=== PATIENT | male | born 1960 | race Caucasian/White ===

== ENCOUNTER → 2017-08-08 12:53 | Outpatient (CLI) | payer MEDICARE, SELFPAY ==
--- NOTE | 2017-08-08 14:00 | ECHOCS_ITS ---
Reason For Study: CHF Procedure This was a 2D Doppler, Color Flow transthoracic echocardiogram. The exam was of poor technical quality due to respiratory status and body habitus.. Exam performed in department. Left Ventricle Normal LV size. Mild concentric left ventricular hypertrophy. Left ventricular systolic function is normal. The estimated ejection fraction is 55 %. No regional wall motion abnormalities noted. Right Ventricle Normal RV size. Normal systolic function. Atria Normal left atrium. Normal right atrium. Mitral Valve Normal mitral valve. Tricuspid Valve Normal tricuspid valve. Unable to estimate RV systolic pressure/pulmonary artery pressure due to technically difficult study. Prob. moderate pulmonary HTN est 50mmhg. Aortic Valve Trisinus/trileaflet aortic valve. Pulmonic Valve The pulmonic valve is not well visualized. Great Vessels Normal aortic root. The pulmonary artery is normal size. Normal inferior vena cava. Pericardium/Pleural No pericardial effusion. Medication 22 gauge I.V. with prn adaptor inserted into left arm. Diluted definity 5ml given slow IV push to enhance endocardial definition. MMode/2D Measurements & Calculations LVIDd: 4.4 cm IVSd: 1.3 cm Ao root diam: 3.5 cm LVIDs: 3.5 cm LVPWd: 1.3 cm LA dimension: 4.2 cm FS: 20.3 % LAV(MOD-bp): 102.0 ml LVAd ap4: 32.2 cm2 EDV(MOD-sp2): 142.4 ml LAV(MOD-bp) Indexed: 43.8 ml/m2 EDV(MOD-sp4): 109.0 ml EF(MOD-sp2): 51.7 % LAV(MOD-sp2): 94.6 ml EDV(sp4-el): 101.4 ml LAV(MOD-sp4): 105.1 ml LVAs ap4: 17.5 cm2 ESV(MOD-sp4): 37.0 ml ESV(sp4-el): 35.4 ml EF(MOD-sp4): 66.1 % EF(sp4-el): 65.2 % SV(MOD-sp4): 72.0 ml SV(MOD-sp2): 73.6 ml SV(sp4-el): 66.1 ml RA A4 area: 21.1 cm2 Doppler Measurements & Calculations MV E max irina: 153.3 cm/sec Ao V2 max: 162.2 cm/sec LV V1 max: 97.4 cm/sec MV A max irina: 166.9 cm/sec Ao max P.5 mmHg LV V1 max P.8 mmHg MV E/A: 0.92 PA V2 max: 64.8 cm/sec Interpretation Summary Normal LV size. Mild concentric left ventricular hypertrophy. Left ventricular systolic function is normal. The estimated ejection fraction is 55 %. Unable to estimate RV systolic pressure/pulmonary artery pressure due to technically difficult study. Prob. moderate pulmonary HTN est 50mmhg Ordering Physician: Yoni Marques Referring Physician: DUNCAN JOSEPH Performed By: Dottie Kirby RDCS, RVT
--- NOTE | 2017-08-09 05:19 | PFTCOMP ---
COMPLETE PULMONARY FUNCTION TEST INTERPRETATION Brief HPI: Patient is a 56 year old male, currently under the care of myself, who presents to [facility] for complete pulmonary function tests secondary to diagnosis of chronic respiratory failure. Respiratory therapist reports good effort and reproducible results. Interpretation: Forced expiration spirometry shows no large airways obstructive ventilatory defect with an FEV1 of 48 % predicted. There is no significant bronchodilator response by ATS criteria. Spirograms are of good quality and plateau normally. The respiratory flow volume loop shows a normal pattern. Lung volumes by body plethysmography show a decreased total lung capacity at 3.77 L, 58 % predicted. All other lung volumes are reduced symmetrically. Diffusion capacity by carbon monoxide is decreased at 28 % predicted. The airway resistance is normal. No previous pulmonary function tests were available for review. Impression: Severe restrictive ventilatory defect with a symmetric reduction diffusing capacity consistent with possible interstitial lung disease. No previous pulmonary function tests are available for review.
--- NOTE | 2017-08-09 05:23 | PFTCOMP_ITS ---
COMPLETE PULMONARY FUNCTION TEST INTERPRETATION Brief HPI: Patient is a 56 year old male, currently under the care of myself, who presents to [facility] for complete pulmonary function tests secondary to diagnosis of chronic respiratory failure. Respiratory therapist reports good effort and reproducible results. Interpretation: Forced expiration spirometry shows no large airways obstructive ventilatory defect with an FEV1 of 48 % predicted. There is no significant bronchodilator response by ATS criteria. Spirograms are of good quality and plateau normally. The respiratory flow volume loop shows a normal pattern. Lung volumes by body plethysmography show a decreased total lung capacity at 3.77 L, 58 % predicted. All other lung volumes are reduced symmetrically. Diffusion capacity by carbon monoxide is decreased at 28 % predicted. The airway resistance is normal. No previous pulmonary function tests were available for review. Impression: Severe restrictive ventilatory defect with a symmetric reduction diffusing capacity consistent with possible interstitial lung disease. No previous pulmonary function tests are available for review.
== END ==
PROVIDERS: Family Provider Family Medicine; PCP Family Medicine; Visit Provider Internal Medicine Critical Care Medicine
DX: I50.9 Heart failure, unspecified (principal); I51.7 Cardiomegaly; J96.10 Chronic respiratory failure, unspecified whether with hypoxia or hypercapnia
CPT/HCPCS: 93306; 94060; 94726; 94729; Q9957; A4216; C8929

== ENCOUNTER → 2017-08-09 12:40 | Outpatient (CLI) | payer MEDICARE, SELFPAY ==
[2017-08-09 13:47] VITALS: PULSE 102; PULSE 104; PULSE 108; PULSE 111; O2SAT 80; O2SAT 88; O2SAT 92
--- NOTE | 2017-08-09 13:47 | CPS ---
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 patient placed on room air. Patients room air sp02 was 80% with a hr of 111 bpm at rest. Patient informed rt that he wears 3 lpm at home cont.. Patient placed back on 3 lpm while at rest. patient ambulated in hallway on 3 lpm at 1 minute otis with a sp02 of 88% and a hr of 108 bpm. Patient increased to 4 lpm due to sp02 level and increased work of breathing. At 1 minute 30 seconds patient requested to quit due to sob. patient was 92% on 4 lp. Post return from testing patient was 92% on 4 lpm with a hr of 102 bpm.
--- NOTE | 2017-08-09 14:38 | CPS ---
Patient arrived for testing on 4 lpm nc. Patient placed on room air. Patients room air sp02 was 80% with a hr of 111 bpm at rest. Patient informed Rt that he wears 3 llpm at home cont.. Patient placed back on 3 lpm while at rest. Patient ambulated in hallway on 3 lpm through 1 minute otis with a sp02 of 88% and a hr of 108 bpm. Patient increased to 4 lpm due to sp02 level and increased work of breathing. At 1 minute 30 seconds patient requested to quit due to sob. Patient was 92% on 4 lpm with ambulation. Post return from testing patient was 92% on 4 lpm with a hr of 102 bpm.
--- NOTE | 2017-08-10 07:07 | WT_ITS ---
PSN 6 Minute Walk Test - 6 Minute Walk Test 6 Minute Walk Test: 6 Minute Walk Test PSN:6-Minute Walk Test Start: 08/09/17 13: 46 Freq: Status: Active Protocol: RESP.6MINW Document 08/09/17 13:47 DWP (Rec: 08/09/17 13:57 DWP [id number]) 6 Minute Walk Test Date Performed 08/09/17 Time Performed 12:50 Height 5 ft 8 in Weight: 186.88 kg Weight in Pounds 412.[address]: dr. mckeon FIO2 (% Oxygen) 0.36 Assistive device used: None Pre-test Oxygen Delivery Method Room Air Pulse Ox (%) 80 Pulse Rate (60-100 beats/min) 111 H Dyspnea Anthony Scale (0-10) 6 Exertion Anthony Scale (6-20) 15 1st minute Oxygen Flow Rate (L/min) 3 Oxygen Delivery Method Nasal Cannula Pulse Ox (%) 88 Pulse Rate (60-100 beats/min) 108 H Reported Symptoms Increased Work of Breathing 2nd minute Oxygen Flow Rate (L/min) 4 Oxygen Delivery Method Nasal Cannula Pulse Ox (%) 92 Pulse Rate (60-100 beats/min) 104 H Number of Rests Taken 1 Reported Symptoms Increased Work of Breathing Post-test Oxygen Flow Rate (L/min) 4 Oxygen Delivery Method Nasal Cannula Pulse Ox (%) 92 Pulse Rate (60-100 beats/min) 102 H Dyspnea Anthony Scale (0-10) 9 Exertion Anthony Scale (6-20) 18 Full Laps Walked 1 Partial Lap, Number of Tiles Walked 0 Total Distance Walked (ft) 59 08/09/17 14:38 Cardiopulmonary Services by Jesus Mcdermott Patient arrived for testing on 4 lpm nc. Patient placed on room air. Patients room air sp02 was 80% with a hr of 111 bpm at rest. Patient informed Rt that he wears 3 llpm at home cont.. Patient placed back on 3 lpm while at rest. Patient ambulated in hallway on 3 lpm through 1 minute otis with a sp02 of 88% and a hr of 108 bpm. Patient increased to 4 lpm due to sp02 level and increased work of breathing. At 1 minute 30 seconds patient requested to quit due to sob. Patient was 92% on 4 lpm with ambulation. Post return from testing patient was 92% on 4 lpm with a hr of 102 bpm. Initialized on 08/09/17 14:38 - END OF NOTE - Interpretation Interpretation: The patient arrived on 4 L nasal cannula. The patient was placed to room air and desaturated to 80%. The patient was then placed on 3 L nasal cannula with improvement in saturations to 92%. The patient only ambulated 59 feet prior to discontinuing study prematurely. Saturations were controlled on 4 L/min and total exercise time of approximately 1 minute and 30 seconds was noted. These findings are consistent with severe respiratory limitation to exercise tolerance. - Recommendations Recommendations: The patient requires 3 L nasal cannula at rest and 4 L minimum with exertion.
== END ==
PROVIDERS: Family Provider Family Medicine; PCP Family Medicine; Visit Provider Internal Medicine Critical Care Medicine
DX: R06.02 Shortness of breath (principal)
CPT/HCPCS: 94618

== ENCOUNTER 2017-09-01 15:02 | Inpatient (IN) | payer MEDICARE, SELFPAY ==
[2017-09-01] VITALS (11 sets, daily range): BP systolic 113–168; BP diastolic 52–81; PULSE 87–109; RESP 15–24; TEMP 36.6–36.7; O2SAT 92–96; BMI 49.4; BMI 48.5
--- NOTE | 2017-09-01 15:35 | EKG12_ITS ---
Test Reason : CHF Blood Pressure : / mmHG Vent. Rate : 085 BPM Atrial Rate : 102 BPM P-R Int : 164 ms QRS Dur : 108 ms QT Int : 360 ms P-R-T Axes : 036 084 021 degrees QTc Int : 428 ms Normal sinus rhythm with Premature ventricular complexes Low voltage QRS Nonspecific ST and T wave abnormality Abnormal ECG Confirmed by RENA MADERA ([id number]), assignment editor SHAY ADAME ([id number]) on 09/05/2017 2:28:21 PM Referred By: JOSE Confirmed By:RENA MADERA
--- NOTE | 2017-09-01 15:40 | ED.DCSUM_ITS ---
- ER Visit Summary Date of Service: 09/01/17 Chief Complaint: Shortness of breath History of Present Illness: The patient is a 56 M with history of COPD, CHF, diabetes presents for 2 months of gradually worsening shortness of breath. Over the last 2 weeks it is gotten even more progressively worse to the point patient is having difficulty with his activities of daily living, such as getting to the toilet. [facility]. He has some associated chest pain. He denies fever, cough, abdominal pain, nausea or vomiting, diarrhea. 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 Patient is on Coumadin for A. fib. he is on 3-1/2 L nasal cannula at his [facility] facility 24 hours a day. Physical Examination: Vital signs: afebrile, hemodynamically stable, 92% on 2 L nasal cannula General: well nourished, well developed, obese, appears ill Skin: warm, dry, no pallor HEENT: normocephalic and atraumatic; PERRL, EOMI, dry mucous membranes Cardiovascular: Tachycardic rate and rhythm without murmur appreciated, tense edema to the left lower extremity up to the thigh with associated erythema, 2+ pulses all distal extremities exception of right PT needed leg Respiratory: Mild increased work of breathing, tachypnea, lungs are clear to auscultation bilaterally, but limited secondary to body habitus Abdominal: Abdomen is soft, mild edema to the terminal skin, nontender with normoactive bowel sounds, no guarding or rebound, no masses MSK: Generalized weakness, moves all extremities Neuro: Awake and alert, oriented ?4. No neuro deficits Test Results: Abnormal Lab Results 09/01/17 09/01/17 09/01/17 15:15 15:15 15:15 WBC 13.2 H RBC 4.19 L Hgb 10.1 L Hct 33.1 L MCV 79.0 L MCH 24.1 L MCHC 30.5 L RDW 16.4 H RDW Differential 47.3 H Plt Count 347 MPV 9.8 Immature Gran % (Auto) 0.500 Neut % (Auto) 78.4 H Lymph % (Auto) 10.3 L Arthur % (Auto) 9.5 Eos % (Auto) 1.1 Baso % (Auto) 0.2 Absolute Neuts (auto) 10.4 H Absolute Lymphs (auto) 1.36 Total Counted Not Reportable PT 28.2 H INR 2.8 APTT 64.8 H Sodium 132 L Potassium 3.9 Chloride 97 L Carbon Dioxide 24.0 Anion Gap 11 BUN 71 H Creatinine 2.45 H Estim Creat Clear Calc 31.80 Est GFR (MDRD) Af Amer 35 L Est GFR (MDRD) Non-Af 29 L BUN/Creatinine Ratio 29.0 H Glucose 64 L Lactic Acid Calcium 8.8 Troponin I 0.03 B-Natriuretic Peptide POC Glucose 09/01/17 09/01/17 09/01/17 16:17 16:17 17:39 WBC RBC Hgb Hct MCV MCH MCHC RDW RDW Differential Plt Count MPV Immature Gran % (Auto) Neut % (Auto) Lymph % (Auto) Arthur % (Auto) Eos % (Auto) Baso % (Auto) Absolute Neuts (auto) Absolute Lymphs (auto) Total Counted PT INR APTT Sodium Potassium Chloride Carbon Dioxide Anion Gap BUN Creatinine Estim Creat Clear Calc Est GFR (MDRD) Af Amer Est GFR (MDRD) Non-Af BUN/Creatinine Ratio Glucose Lactic Acid 1.1 Calcium Troponin I B-Natriuretic Peptide 365.7 H POC Glucose 72 Emergency Department Course and Treatment: Patient presents for shortness of breath with the differential including CHF exacerbation, COPD, pneumonia, or other infectious or cardiac etiology. Patient does have the edema of the left lower extremity which is either due to CHF or concerning for cellulitis. Patient is afebrile but is tachycardic and tachypneic, again either CHF infectious in nature. EKG showed this rhythm without ischemia or ectopy, rate 85 at the time it was taken. Chest x-ray was consistent with CHF and showed no pneumonia. Patient had an elevated BNP. CBC remarkable for leukocytosis of 13.2. Creatinine elevated at 2.45, with patient's last baseline 2 years ago and mildly elevated. Unsure if patient's creatinine today is due to progression of chronic kidney disease or is an acute insufficiency. INR therapeutic at 2.8. Thus unlikely patient's lower extremity swelling is from a DVT. Troponin was within normal limits. Lactate was 1.1. Because of the cellulitic changes in the left lower extremity, patient was started on IV antibiotics, clindamycin, for cellulitis coverage. He is not septic. Most likely his shortness of breath is due to acute CHF exacerbation that is gradually worsened over the last several weeks. He was given nitro followed by Lasix. He initially received gentle hydration, but this was discontinued once his main issue was suspected to be acute CHF exacerbation. Patient maintained good oxygen saturation on his home oxygen settings. Patient was discussed with Dr. Aubrie dowd for further management. Treatment Plan: [] Disposition: [] Impression: Acute CHF exacerbation, left lower extremity cellulitis, acute renal insufficiency, acute on chronic dyspnea This note was generated with [employer] dictation software. It may contain incorrect words, spelling, and punctuation that were not noted in review of the chart prior to signing ED Disposition - Plan for ED Patient: Chief Complaint: Shortness of Breath
--- NOTE | 2017-09-01 15:40 | RAD_ITS ---
STUDY: X-RAY CHEST REASON FOR EXAM: Male, 56 years old. CHF. Shortness of breath. TECHNIQUE: Portable frontal COMPARISON: February 14, 2016 FINDINGS: There are EKG leads projecting over the thorax. There is perihilar fullness associated with prominent interstitial markings. Cardiomegaly is present. Normal visualized aortic arch and descending thoracic aorta. There are diffuse degenerative changes of the visualized thoracic spine. Normal visualized ribs, clavicles, and shoulders. There is no demonstrated abnormality of the visualized soft tissue structures of the upper abdomen. RAD/Chest 1 View (Portable) IMPRESSION: Congestive heart failure. Electronically Signed: Leticia Soto MD at 16:04 EST Tel , Service support ,
[2017-09-01] MEDS: 0.9% Normal Saline 1,000 ML 150 ML IV (16:18)
[2017-09-01] MEDS: Furosemide 40 MG/4 ML Vial IV (16:32)
[2017-09-01 16:48] LABS: Absolute Lymphocyte Count 1.36 X10^3/ul (0.83-4.51); Absolute Neutrophil Count 10.4 X10^3/uL (2.0-7.7); Basophil# 0.02 X10^3/uL; Basophil% 0.2 % (0-1); Eosinophil# 0.14 X10^3/uL; Eosinophils% 1.1 % (0-5); Hematocrit 33.1 % (40-54); Hemoglobin 10.1 g/dl (13.0-16.5); Lymphocyte # 1.36 X10^3/ul (4.0); Lymphocyte % 10.3 % (19-41); Mean Corp Hgb Conc 30.5 g/gl (32-36); Mean Corpuscular Hgb 24.1 pg (27.0-32.0); Mean Platelet Vol. 9.8 fl (6.2-12.0); Monocyte# 1.25 X10^3/uL; Monocyte% 9.5 % (0-10); Neutrophil # 10.36 X10^3/uL (2.7-7.7); Neutrophil % 78.4 % (47-70); Platelet Count 347 K/mm3 (150-450); RBC Distribution Width CV 16.4 % (11.6-14.6); RBC Distribution Width SD 47.3 fl (35.1-43.9); Red Blood Count 4.19 M/mm3 (4.6-6.2); White Blood Count 13.2 K/mm3 (4.4-11.0)
[2017-09-01 16:53] LABS: POSITIVE COUNT NO; POSITIVE DIFFERENTIAL NO; POSITIVE MORPHOLOGY NO
[2017-09-01 17:01] LABS: International Normalized Ratio 2.8; Prothrombin Time (Protime)PT. 28.2 SECONDS (11.7-14.9)
[2017-09-01 17:02] LABS: Partial Thromboplast Time 64.8 Seconds (24.1-36.2)
[2017-09-01 17:05] LABS: Anion Gap 11 (5-15); BUN 71 mg/dL (7-18); Calcium,Total 8.8 mg/dL (8.5-10.1); Chloride 97 mmol/L (98-107); Creatinine, Serum 2.45 mg/dL (0.70-1.30); EST Glomerular Filtration Rate 29 mL/min (>60); Est Glom Filt Rate - Afr Amer 35 mL/min (>60); Glucose 64 mg/dL (74-106); Potassium 3.9 mmol/L (3.5-5.1); Sodium Level 132 mmol/L (136-145)
[2017-09-01 17:09] LABS: BNP,B-Type NATRIURETIC PEPTIDE 365.7 pg/mL (0-100)
[2017-09-01 17:14] LABS: Lactic Acid 1.1 mmol/L (0.4-2.0)
--- NOTE | 2017-09-01 17:50 | PCM.HP.STD ---
Problem List (1) Acute on chronic diastolic (congestive) heart failure Status: Acute (2) Diabetes mellitus, type 2 Status: Chronic Qualifiers: Diabetes mellitus complication status: with unspecified complications (3) Hypertension Status: Chronic Qualifiers: Hypertension type: essential hypertension Qualified Code(s): I10 - Essential (primary) hypertension (4) Hyperlipidemia Status: Chronic Qualifiers: Hyperlipidemia type: unspecified Qualified Code(s): E78.5 - Hyperlipidemia, unspecified (5) Chronic obstructive lung disease Status: Chronic Qualifiers: Emphysema type: unspecified (6) Chronic diastolic CHF (congestive heart failure) Status: Chronic Comment: ischemic cardiomyopathy (7) CAD (coronary artery disease) Status: Chronic Qualifiers: Coronary Disease-Associated Artery/Lesion type: [place] artery [place] vs. transplanted heart: [place] heart Associated angina: angina presence unspecified Qualified Code(s): I25.10 - Atherosclerotic heart disease of [place] coronary artery without angina pectoris Comment: Status post the first OM the LCx appears to be occluded First OM with proximal 50-75% appearing stenosis followed by minimal luminal irregularities - recommended medical management (8) Nicotine dependence Status: Chronic Qualifiers: Substance use status: unspecified nicotine-induced disorder History of Present Illness Date of Admission: 09/01/17 Chief Complaint: Shortness of breath ongoing for 2 months The patient is a 56 year old male with past medical history of chronic diastolic CHF, COPD, morbid obesity, type 2 DM, on insulin, hypertension comes in with complaints of shortness of breath ongoing for the past 2 months associated with orthopnea, PND and left leg swelling. Denied any fever or chills but said he has seen his primary care doctor within the last 2 weeks and was asked to continue management for CHF. He follows up with pain management, Dr. Russell in the outpatient. At time of being seen, he denied any chest discomfort, any dizziness, or palpitations. In the ED showed temperature of 90 8.1F, heart rate of 105, blood pressure was 133/52, respiratory rate was 24, SPO2 is 92-95% on 2L. Admitting blood work showed RBC count of 13.2, Hb of 10.1, platelets of 347, INR was 2.8, sodium 132, chloride 97 BUN 71 creatinine 2.45(apparent baseline creatinine is around 1.3). Chest X-ray shows vascular congestion. BNPep was 365.7. Past Medical History Past Medical History (Chronic Problems): Chronic Problems (Last Reviewed 07/17/17 @ 06:30 by Татьяна Carrera) Diabetes mellitus, type 2 (Chronic) Hypertension (Chronic) Hyperlipidemia (Chronic) Chronic obstructive lung disease (Chronic) Chronic diastolic CHF (congestive heart failure) (Chronic) ischemic cardiomyopathy Obstructive sleep apnea (Chronic) Back pain (Chronic) CAD (coronary artery disease) (Chronic) Status post the first OM the LCx appears to be occluded First OM with proximal 50-75% appearing stenosis followed by minimal luminal irregularities - recommended medical management Depression (Chronic) Nicotine dependence (Chronic) Microcytic anemia (Chronic) Chronic respiratory failure with hypoxia (Chronic) Morbid obesity with BMI of 40.0-44.9, adult (Chronic) PAF (paroxysmal atrial fibrillation) (Chronic) Allergies ciprofloxacin [From Cipro] Allergy (Verified 09/01/17 15:48) itching/burning when given IV ciprofloxacin HCl [From Cipro] Allergy (Verified 09/01/17 15:48) Unknown ibuprofen [From Motrin] Allergy (Verified 09/01/17 15:48) elevated white count? tramadol Allergy (Verified 09/01/17 15:48) makes me shake/twitch venom-honey bee [bee venom (honey bee)] Allergy (Verified 09/01/17 15:48) Shortness of breath Home Medications: Ambulatory Orders Medication Instructions Recorded Cholecalciferol (VIT D3) [Vitamin 2,000 unit PO DAILY 12/23/15 D3] Duloxetine HCl 120 mg PO DAILY 12/23/15 Magnesium Oxide [Mag-Ox 400] 400 mg PO DAILY 12/23/15 Melatonin 3 mg PO QHS 12/23/15 Metoprolol Tartrate [Lopressor 25 mg PO BID 12/23/15 (beta carlos eduardo)] Multivitamins,Therapeutic 1 tab PO DAILY 12/23/15 [Multivitamin] Potassium Chloride [K-Liliana] 15 ml PO BID 12/23/15 Sennosides [Evac-U-Gen] 2 tab PO BID 12/23/15 Thiamine HCl [B-1] 100 mg PO DAILY 12/23/15 Warfarin [Coumadin] 5 mg PO QHS 12/23/15 Metformin HCl [Glucophage] 500 mg PO BIDCM #0 tab 12/27/15 Torsemide [Demadex] 20 mg PO DAILY #30 tab 12/27/15 Nitroglycerin [Nitrostat] 0.4 mg SUBLINGUAL Q5M PRN #30 tab 01/18/16 Acetaminophen [Tylenol Tablet] 650 mg PO Q6H PRN PRN #10 tab 02/16/16 Acetaminophen 650 mg RC Q6H PRN PRN 09/01/17 Atorvastatin Calcium 20 mg PO QHS 09/01/17 Bisacodyl [Laxative Suppository] 10 mg RC PRN PRN 09/01/17 BusPIRone [Buspar] 5 mg PO TID 09/01/17 Dextrose [Glucose Gel] 38 gm PO PRN PRN 09/01/17 Furosemide [Lasix] 20 mg PO DAILY 09/01/17 Glucagon,Human Recombinant 1 mg IJ PRN PRN 09/01/17 [Glucagon Emergency Kit] Guaifenesin [Robitussin] 10 ml PO Q4H PRN PRN 09/01/17 Hydrocodone Bitart/Apap 5-325 1 tablet PO BID PRN PRN 09/01/17 [[place] 5MG-325MG] Hydroxyzine HCl 25 mg PO Q6H PRN PRN 09/01/17 Insulin Detemir [Levemir FlexPen] 55 units SC BID 09/01/17 Insulin Lispro [Humalog] 10 unit SC TIDCM 09/01/17 Ipratropium/Albuterol Sulfate 3 ml INHALATION DAILY 09/01/17 [Duoneb] Ipratropium/Albuterol Sulfate 3 ml INHALATION Q4H PRN PRN 09/01/17 [Duoneb] Mag Hydrox/Al Hydrox/Simeth 30 ml PO Q4H PRN PRN 09/01/17 [Antacid Suspension] Magnesium Hydroxide [Milk Of 30 ml PO DAILY PRN PRN 09/01/17 Magnesia] Mirtazapine [Remeron] 15 mg PO QHS 09/01/17 MorphINE [MS Contin] 30 mg PO Q8H 09/01/17 Na Phos,M-B/Na Phos,Di-Ba [Fleet 1 bottle RECTAL DAILY PRN PRN 09/01/17 Enema] Omeprazole [Prilosec] 20 mg PO DAILY 09/01/17 Pregabalin [Lyrica] 50 mg PO BID 09/01/17 Tamsulosin HCl [Flomax] 0.4 mg PO QHS 09/01/17 Warfarin [Coumadin ([facility])] 2 mg PO SUTUTHSA 09/01/17 Surgical History: - - Right 2nd toe amputation, cardiac catheterization, right ankle surgery, right foot surgery secondary to fracture, tracheostomy, status below right knee amputation. Psychiatric History: Depression Smoking Status: Former smoker - *Family History Maternal History Items: Hypertension Paternal History Items: Diabetes, Hypertension Sibling History Items: No pertinent history Review of Systems Constitutional: Reports: Anorexia, Weakness. Denies: Chills, Fever, Malaise, Weight Change Eyes: Denies: Blurred vision, Cataracts, Conjunctivae Inflammation, Pain, Redness HEENT: Denies: Difficulty Hearing, Difficulty Swallowing, Head Aches, Hearing Changes, Sinus Congestion, Sinus Drainage Cardiovascular: Reports: Edema, Orthopnea, Paroxysmal Noc. Dyspnea. Denies: Chest Pain, Claudication, Chest Pressure, Palpitations Respiratory: Denies: Cough, Shortness of breath at rest, Sputum production Gastrointestinal: Denies: Abdominal Pain, Nausea, Vomiting Genitourinary: Denies: Dysuria, Frequency, Incontinence Musculoskeletal: Denies: Joint Pain, Joint stiffness, Joint swelling, Joint Tenderness Skin: Denies: Rash, Wounds Neurological: Denies: Difficulty swallowing, Focal weakness, Numbness, Tingling Psychiatric: Denies: Anxiety, Depression, Homicidal Ideations, Suicidal Ideations Hematologic/ Lymphatic: Denies: Easy Bruising, Easy Bleeding VTE Information - Inpt Only VTE Present on Admission: No VTE Pharm Prophylaxis ordered?: Yes - Physical Exam General: Alert, Oriented x3, Cooperative HEENT: Atraumatic, PERRLA, EOMI, Normocephalic Oral: Moist Mucosa Neck: Supple Lungs: Clear to auscultation, Normal air movement Cardiovascular: Regular rate, Regular Rhythm, Normal S1, Normal S2, No murmurs Abdomen: Bowel Sounds Present, Non Tender, Non-Distended, No Hepato-splenomegaly, Obese, - - Firm to touch from anterior wall edema Extremities: Edema - left leg is edematous, woody to touch, right AKA Skin: - - erythema and cellulitic changes of skin up to the medial aspect of the left leg. Musculoskeletal: No Tenderness to Palpation of Joints or Extremities Lymphatic: No Cervical, Supraclavicular, or Inguinal Adenopathy Neurological: Cranial nerves II-XII grossly intact, Neuro grossly intact Psych/Mental Status: Normal Affect, Appropriate Vital Signs Temp Pulse Resp BP Pulse Ox 98.1 F 107 H 15 168/76 H 93 09/01/17 15:03 09/01/17 17:47 09/01/17 17:47 09/01/17 17:47 09/01/17 17:47 Oxygen Flow Rate 2 Oxygen Delivery Method Nasal Cannula Weight: 147.5 kg Body Mass Index (BMI) 49.4 Finger Stick Blood Glucose 72 Laboratory Tests Past 24 Hrs 09/01/17 09/01/17 09/01/17 15:15 15:15 15:15 WBC 13.2 H RBC 4.19 L Hgb 10.1 L Hct 33.1 L MCV 79.0 L MCH 24.1 L MCHC 30.5 L RDW 16.4 H RDW Differential 47.3 H Plt Count 347 MPV 9.8 Immature Gran % (Auto) 0.500 Neut % (Auto) 78.4 H Lymph % (Auto) 10.3 L [place] % (Auto) 9.5 Eos % (Auto) 1.1 Baso % (Auto) 0.2 Absolute Neuts (auto) 10.4 H Absolute Lymphs (auto) 1.36 Total Counted Not Reportable PT 28.2 H INR 2.8 APTT 64.8 H Sodium 132 L Potassium 3.9 Chloride 97 L Carbon Dioxide 24.0 Anion Gap 11 BUN 71 H Creatinine 2.45 H Estim Creat Clear Calc 31.80 Est GFR (MDRD) Af Amer 35 L Est GFR (MDRD) Non-Af 29 L BUN/Creatinine Ratio 29.0 H Glucose 64 L Lactic Acid Calcium 8.8 Troponin I 0.03 B-Natriuretic Peptide 09/01/17 09/01/17 16:17 16:17 WBC RBC Hgb Hct MCV MCH MCHC RDW RDW Differential Plt Count MPV Immature Gran % (Auto) Neut % (Auto) Lymph % (Auto) Harnett % (Auto) Eos % (Auto) Baso % (Auto) Absolute Neuts (auto) Absolute Lymphs (auto) Total Counted PT INR APTT Sodium Potassium Chloride Carbon Dioxide Anion Gap BUN Creatinine Estim Creat Clear Calc Est GFR (MDRD) Af Amer Est GFR (MDRD) Non-Af BUN/Creatinine Ratio Glucose Lactic Acid 1.1 Calcium Troponin I B-Natriuretic Peptide 365.7 H Assessment/Plan 56 year old male with past medical history of chronic diastolic CHF, COPD, morbid obesity, type 2 DM, on insulin, hypertension comes in with complaints of shortness of breath ongoing for the past 2 months associated with orthopnea, PND and left leg swelling. 1. Acute CHF exacerbation, chronic diastolic heart failure, on lasix 20 mg p.o. at home, chest x-ray shows vascular congestion, patient is clinically overloaded, BNPep is 357 which has to be interpreted in the light of morbid obesity. Appears to be clinically in heart failure Plan: Admit to PCU, continue to monitor on telemetry, IV Lasix 40 mg daily, strict I's and O's, daily weights, BMP in the morning 2. Sepsis secondary to Acute left leg cellulitis, (tachycardia, leucocytosis, source of infection which is the cellulitis), lactic acid is 1.1, will start patient on IV cefazolin, to to monitor patient closely, elevation of leg in bed, labs in am 3. JAILENE on CKD stage 3, likely secondary to cardiorenal syndrome, on lasix, will put nephrology on consult, urine urea, urine creatinine, ultrasound of the kidney 4. Type 2 DM, on insulin, will continue home regimen with Accu-Cheks, low dose ISS, will check HgbA1c, last Hgba1c was 10.1 5. Hyperlipidemia, on statin 6. Paroxysmal atrial fibrillation, on coumadin, INR is therapeutic, continue on coumadin, daily INR 7. Chronic COPD, acute exacerbation, will continue on breathing treatments as needed 8. DVT Prophylaxis - patient is on Coumadin and INR is therapeutic Code Visit Inpatient E&M: 03114 Init Hosp L3
[2017-09-01 17:51] LABS: Bedside Glucose 72 mg/dL (70-110)
--- NOTE | 2017-09-01 19:17 | US_ITS ---
STUDY: RENAL ULTRASOUND - COMPLETE REASON FOR EXAM: Male, 56 years old. ARF TECHNIQUE: Ultrasound evaluation of the kidneys was performed with real-time and static wells-scale imaging. The examination was limited secondary to the patient's body habitus. COMPARISON: None. FINDINGS: RIGHT KIDNEY: The right kidney is poorly visualized. No gross hydronephrosis is seen LEFT KIDNEY: Normal location of the left kidney, which is normal in size. The left kidney measures 11.3 x 5.3 x 5.8 cm. There is a normal cortex of the left kidney. The renal cortex measures cm. There is no left renal mass or cyst. There are no left renal calculi. There is no left hydronephrosis. BLADDER: The distended urinary bladder has a volume of 380 ml. There is a Bright catheter within the urinary bladder. There is a normal wall thickness of the distended urinary bladder. There is no demonstrated mass within the urinary bladder. There are no demonstrated bladder calculi. US/Kidney and Bladder IMPRESSION: Extremely limited examination secondary to body habitus demonstrating no gross hydronephrosis. Electronically Signed: Leticia Soto MD at 14:01 EST Tel , Service support ,
[2017-09-01] MEDS: Pregabalin 50 MG Capsule PO (22:24)
[2017-09-01] MEDS: MELATONIN 3 MG TABLET PO (22:24)
[2017-09-01] MEDS: Mirtazapine 15 MG Tablet PO (22:25)
[2017-09-01] MEDS: Atorvastatin Calcium 20 MG Tablet PO (22:25)
[2017-09-01] MEDS: Tamsulosin HCl 0.4 MG Capsule PO (22:25)
[2017-09-01] MEDS: Senna Tablet 1 TABLET PO (22:25)
[2017-09-01] MEDS: Metoprolol Tartrate 25 MG Tablet PO (22:29)
[2017-09-01 22:51] LABS: Bedside Glucose 91 mg/dL (70-110)
[2017-09-01 22:54] LABS: Urine Sodium 34 mmol/L (Not Establ.)
[2017-09-01] MEDS: Ipratropium/Albuterol Sulfate 3 ML AMPUL.NEB INHALATION (23:00)
[2017-09-02] VITALS (15 sets, daily range): BP systolic 127–151; BP diastolic 52–75; PULSE 94–119; RESP 14–20; TEMP 36.4–36.9; O2SAT 90–95
[2017-09-02 04:36] LABS: Hematocrit 30.1 % (40-54); Hemoglobin 9.4 g/dl (13.0-16.5); Mean Corp Hgb Conc 31.2 g/gl (32-36); Mean Corpuscular Hgb 24.6 pg (27.0-32.0); Mean Corpuscular Volume 78.8 fL (80-94); Mean Platelet Vol. 9.7 fl (6.2-12.0); Platelet Count 360 K/mm3 (150-450); RBC Distribution Width CV 16.4 % (11.6-14.6); RBC Distribution Width SD 45.8 fl (35.1-43.9); Red Blood Count 3.82 M/mm3 (4.6-6.2); White Blood Count 11.6 K/mm3 (4.4-11.0)
[2017-09-02 04:36] LABS: Bedside Glucose 106 mg/dL (70-110)
[2017-09-02 04:48] LABS: Scan Indicated on CBC? Y/N NO
[2017-09-02 04:53] LABS: Anion Gap 11 (5-15); BUN 71 mg/dL (7-18); Calcium,Total 8.6 mg/dL (8.5-10.1); Chloride 94 mmol/L (98-107); Creatinine, Serum 2.15 mg/dL (0.70-1.30); EST Glomerular Filtration Rate 34 mL/min (>60); Est Glom Filt Rate - Afr Amer 41 mL/min (>60); Estimated Creatinine Clearance 36.23 ml/min; Glucose 92 mg/dL (74-106); Potassium 3.3 mmol/L (3.5-5.1); Sodium Level 133 mmol/L (136-145)
[2017-09-02 05:05] LABS: International Normalized Ratio 2.5; Prothrombin Time (Protime)PT. 25.7 SECONDS (11.7-14.9)
[2017-09-02 06:51] LABS: Bedside Glucose 110 mg/dL (70-110)
[2017-09-02] MEDS: Ipratropium/Albuterol Sulfate 3 ML AMPUL.NEB INHALATION ×3 (07:07→18:55)
[2017-09-02] MEDS: Multivitamins,Therapeutic Tablet 1 TABLET PO (07:49)
[2017-09-02] MEDS: Thiamine Hydrochloride 100 MG Tablet PO (07:49)
--- NOTE | 2017-09-02 09:20 | CASEMGMT ---
Patient is from [facility]. SW faxed updates to [facility]. RUSSEL also called Kimberly and she said patient can return even if pre-cert is not yet obtained as he is a custodial resident. SW to follow for return to [facility]. Melanie العلي MSW
[2017-09-02] MEDS: Senna Tablet 1 TABLET PO ×2 (10:00→21:53)
[2017-09-02] MEDS: Metoprolol Tartrate 25 MG Tablet PO ×2 (10:00→21:51)
[2017-09-02] MEDS: DULoxetine Hcl 60 MG Capsule 120 MG PO (10:00)
[2017-09-02] MEDS: Furosemide 40 MG/4 ML Vial IV ×2 (10:01→21:50)
[2017-09-02] MEDS: Pantoprazole Sodium 20 MG Tablet PO (10:01)
[2017-09-02] MEDS: Pregabalin 50 MG Capsule PO ×2 (10:01→21:56)
[2017-09-02] MEDS: 0.9% NaCl Peripheral Flush Adult/Peds IV ×3 (10:02→22:04)
--- NOTE | 2017-09-02 10:36 | PCM.CONS.R ---
Consultation - Renal 09/02/17 PCP/ Referring MD: Requesting physician: Suzette Hernandez Primary care physician: Sharan Rae Reason for Consultation:: JAILENE - History of Present Illness History of Present Illness: The patient is a 56 year old male resident of [facility] with past medical history of chronic diastolic CHF, COPD, morbid obesity, MATTHEW on CPAP, type 2 DM for 22 years s/p Rt BKA, on insulin, hypertension comes in with complaints of shortness of breath ongoing for the past 2 months associated with orthopnea, PND and left leg swelling. He presented with acute kidney injury with a creatinine of 2.45 improved to 2.15 after Bright catheter insertion. Baseline creatinine appears to be at 1.05 in February 2016. He complained of urinary hesitancy, dribbling, weak urine stream. He history of BPH, by the [place] clinic. He has been seen by a boom tender he believes at the [place]. He had a prolonged hospitalization for 10 months back in March 2015 to December 2015 for respiratory arrest requiring tracheostomy at [facility] with subsequent admission to [facility]. He is morbidly obese and sedentary at [facility] due to debilitation, chronic pain syndrome from back pain. He is followed by Dr. Russell. He denied any chest pain. His appetite has been good without nausea or vomiting. He has a history of weight gain. He complains of constipation with increased abdominal distention and discomfort. He does not know what his sugar control has been. He is on insulin for diabetes. He was started on iv antibiotics for leg cellulitis. He has tremors in his upper extremities that is chronic. Chest X-ray shows vascular congestion. BNP was 365.7. Kidney US is ordered. - Allergies Allergies: Allergies ciprofloxacin [From Cipro] Allergy (Verified 09/01/17 15:48) itching/burning when given IV ciprofloxacin HCl [From Cipro] Allergy (Verified 09/01/17 15:48) Unknown ibuprofen [From Motrin] Allergy (Verified 09/01/17 15:48) elevated white count? tramadol Allergy (Verified 09/01/17 15:48) makes me shake/twitch venom-honey bee [bee venom (honey bee)] Allergy (Verified 09/01/17 15:48) Shortness of breath - Current Medications Current Medications: Current Medications Hydrocodone Bitart/Acetaminophen ([place] 5mg-325mg) 1 tablet PO BID PRN PRN PRN Reason: BREAKTHROUGH PAIN (>4/10) Al Hydroxide/Mg Hydroxide (Mylanta Ii) 30 ml PO Q4H PRN PRN PRN Reason: gi distress Albuterol/Ipratropium (Duoneb) 3 ml INHALATION Q4H PRN PRN PRN Reason: SOB &/OR WHEEZING Albuterol/Ipratropium (Duoneb) 3 ml INHALATION Q4HWA.RT [facility] Last Admin: 09/02/17 07:07 Dose: 3 ml Atorvastatin Calcium (Lipitor) 20 mg PO QHS [facility] Last Admin: 09/01/17 22:25 Dose: 20 mg Bisacodyl (Dulcolax) 10 mg RECTAL PRN PRN PRN Reason: Constipation Buspirone HCl (Buspar) 5 mg PO TID [facility] Last Admin: 09/02/17 05:43 Dose: 5 mg Cholecalciferol (Vitamin D) 2,000 unit PO DAILY [facility] Last Admin: 09/02/17 10:00 Dose: 2,000 unit Dextrose (D50w Syringe) 0 gm IV X1 PRN; Protocol PRN Reason: Hypoglycemia Duloxetine HCl (Cymbalta) 120 mg PO DAILY [facility] Last Admin: 09/02/17 10:00 Dose: 120 mg Furosemide (Lasix) 40 mg IV DAILY [facility] Last Admin: 09/02/17 10:01 Dose: 40 mg Glucagon () 1 mg IM .X1 PRN PRN Reason: Hypoglycemia Guaifenesin (Robitussin) 10 ml PO Q4H PRN PRN PRN Reason: COUGH Heparin Sodium (Porcine) (Heparin Na) 5,000 unit SC BID [facility] Last Admin: 09/02/17 10:01 Dose: 5,000 units Hydroxyzine Pamoate (Vistaril) 25 mg PO Q6H PRN PRN PRN Reason: ANXIETY Cefazolin Sodium 0.5 gm/ (Sodium Chloride) 50 mls @ 100 mls/hr IV Q12 [facility] Last Admin: 09/02/17 10:01 Dose: 100 mls/hr Sodium Chloride () 250 mls @ 15 mls/hr IV .[id number] PRN PRN Reason: SALINE FLUSH Insulin Aspart (Novolog Flexpen (Bkc)) 0 units SC ACHS [facility] PRN Reason: Protocol Last Admin: 09/02/17 07:38 Dose: Not Given Insulin Aspart (Novolog Flexpen (Bkc)) 10 units SC TIDCM [facility] Last Admin: 09/02/17 07:49 Dose: 10 u Magnesium Hydroxide (Milk Of Magnesia) 30 ml PO DAILY PRN PRN Reason: Constipation Melatonin (Melatonin) 3 mg PO QHS [facility] Last Admin: 09/01/17 22:24 Dose: 3 mg Metoprolol Tartrate (Lopressor (Beta Ronald)) 25 mg PO BID [facility] Last Admin: 09/02/17 10:00 Dose: 25 mg Mirtazapine (Remeron) 15 mg PO QHS [facility] Last Admin: 09/01/17 22:25 Dose: 15 mg Morphine Sulfate (Ms Contin) 30 mg PO Q8 [facility] Last Admin: 09/02/17 05:43 Dose: 30 mg [facility] Last Admin: 09/02/17 07:49 Dose: 1 tablet Nitroglycerin (Nitrostat) 0.4 mg SUBLINGUAL Q5M PRN PRN Reason: Chest Pain Ondansetron HCl (Zofran) 4 mg IV Q6H PRN PRN PRN Reason: NAUSEA/VOMITING Pantoprazole Sodium (Protonix) 20 mg PO DAILY [facility] Last Admin: 09/02/17 10:01 Dose: 20 mg Pregabalin (Lyrica) 50 mg PO BID [facility] Last Admin: 09/02/17 10:01 Dose: 50 mg Senna (Senokot) 1 tablet PO BID [facility] Last Admin: 09/02/17 10:00 Dose: 1 tablet Sodium Biphosphate/Sodium Phosphate (Fleet Enema) 1 bottle RECTAL DAILY PRN PRN PRN Reason: Constipation Sodium Chloride () 5 - 30 ml IV UD PRN PRN Reason: SALINE FLUSH Last Admin: 09/02/17 10:02 Dose: 10 ml Tamsulosin HCl (Flomax) 0.4 mg PO QHS [facility] Last Admin: 09/01/17 22:25 Dose: 0.4 mg Thiamine HCl ([facility]) [facility] Last Admin: 09/02/17 07:49 Dose: 100 mg - Past Medical History Past Medical History (Chronic Problems): Chronic Problems (Last Reviewed 07/17/17 @ 06:30 by Татьяна Carrera) Diabetes mellitus, type 2 (Chronic) Hypertension (Chronic) Hyperlipidemia (Chronic) Chronic obstructive lung disease (Chronic) Chronic diastolic CHF (congestive heart failure) (Chronic) ischemic cardiomyopathy Obstructive sleep apnea (Chronic) Back pain (Chronic) CAD (coronary artery disease) (Chronic) Status post the first OM the LCx appears to be occluded First OM with proximal 50-75% appearing stenosis followed by minimal luminal irregularities - recommended medical management Depression (Chronic) Nicotine dependence (Chronic) Microcytic anemia (Chronic) Chronic respiratory failure with hypoxia (Chronic) Morbid obesity with BMI of 40.0-44.9, adult (Chronic) PAF (paroxysmal atrial fibrillation) (Chronic) - Past Surgical History Surgical History: - - Right 2nd toe amputation, cardiac catheterization, right ankle surgery, right foot surgery secondary to fracture, tracheostomy, status below right knee amputation. - Social History Smoking Status: Former smoker - Family History Maternal History Items: Hypertension Paternal History Items: Diabetes, Hypertension Sibling History Items: No pertinent history Review of Systems Constitutional: Reports: Weakness, Fatigue. Denies: Anorexia, Chills, Fever Eyes: Denies: Blurred vision HEENT: Denies: Head Aches Cardiovascular: Reports: Edema. Denies: Chest Pain, Orthopnea, Palpitations, Syncope Respiratory: Reports: Shortness of Breath, Shortness of breath at rest, - - MATTHEW on CPAP, - - hx tracheostomy. Denies: Cough Gastrointestinal: Reports: Abdominal Pain - distension, Constipation, - - no anorexia. Denies: Diarrhea, Nausea, Vomiting Genitourinary: Reports: Hesitancy, Retention, Urgency, - - BPH on flomax. Denies: Dysuria Musculoskeletal: Reports: Arm Pain, Back Pain, Foot Pain, - - chronic pain syndrome, rt BKA Neurological: Denies: Blurred vision Psychiatric: Reports: Depression. Denies: Anxiety Hematologic/ Lymphatic: Reports: Anemia - Physical Exam General: Alert, Oriented x3, Cooperative, Well nourished, - - super morbid obesity HEENT: Atraumatic Oral: Moist Mucosa Neck: No JVD Lungs: Clear to auscultation, Diminished Cardiovascular: Regular rate, - Abdomen: Bowel Sounds Present, Distended, Obese - super, Tender Extremities: Edema Skin: - - erythema with white patch on LLE, s/p rt BKA Musculoskeletal: No Muscle Wasting Neurological: Cranial nerves II-XII grossly intact, - - twitching of BUE. Psych/Mental Status: Normal Affect, Appropriate, Alert and oriented to time, place, person, mood and affect Vital Signs Temp Pulse Resp BP Pulse Ox 98.2 F 116 H 14 151/65 H 90 09/02/17 09:00 09/02/17 10:00 09/02/17 09:00 09/02/17 09:00 09/02/17 09:00 Oxygen Flow Rate 2 Oxygen Delivery Method Nasal Cannula Weight: 139.2 kg Body Mass Index (BMI) 48.5 Finger Stick Blood Glucose 72 Intake and Output for Last 24 Hours 08/31/17 09/01/17 09/02/17 23:59 23:59 23:59 Intake Total 433.6 / 433.6 Output Total 2575 / 2575 Balance -2141.4 / -2141.4 Laboratory Tests Past 24 Hrs 09/01/17 09/01/17 09/01/17 20:15 22:20 22:20 WBC RBC Hgb Hct MCV MCH MCHC RDW RDW Differential Plt Count MPV PT INR Sodium Potassium Chloride Carbon Dioxide Anion Gap BUN Creatinine Estim Creat Clear Calc Est GFR (MDRD) Af Amer Est GFR (MDRD) Non-Af BUN/Creatinine Ratio Glucose Calcium Troponin I 0.04 Ur Random Sodium 34 Urine Creatinine 35.50 09/02/17 09/02/17 09/02/17 00:03 03:56 03:56 WBC 11.6 H RBC 3.82 L Hgb 9.4 L Hct 30.1 L MCV 78.8 L MCH 24.6 L MCHC 31.2 L RDW 16.4 H RDW Differential 45.8 H Plt Count 360 MPV 9.7 PT 25.7 H INR 2.5 Sodium Potassium Chloride Carbon Dioxide Anion Gap BUN Creatinine Estim Creat Clear Calc Est GFR (MDRD) Af Amer Est GFR (MDRD) Non-Af BUN/Creatinine Ratio Glucose Calcium Troponin I 0.04 Ur Random Sodium Urine Creatinine 09/02/17 09/02/17 03:56 09:40 WBC RBC Hgb Hct MCV MCH MCHC RDW RDW Differential Plt Count MPV PT INR Sodium 133 L Potassium 3.3 L Chloride 94 L Carbon Dioxide 28.0 Anion Gap 11 BUN 71 H Creatinine 2.15 H Estim Creat Clear Calc 36.23 Est GFR (MDRD) Af Amer 41 L Est GFR (MDRD) Non-Af 34 L BUN/Creatinine Ratio 33.0 H Glucose 92 Calcium 8.6 Troponin I 0.03 0.03 Ur Random Sodium Urine Creatinine POC Glucose 09/02/17 09/02/17 09/01/17 06:45 04:30 22:21 POC Glucose 110 106 91 Clinical Impression(s) from Imaging Studies Chest X-Ray 09/01/17 15:40 IMPRESSION: Congestive heart failure. Electronically Signed: Leticia Soto MD at 16:04 EST Tel , Service support , Assessment/Plan 1. 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 Baseline creatinine 1.05 in February 2016 creatinine 2.45 on admission improved to 2.15 today after Bright catheter inserted. Renal ultrasound pending. 2. History of BPH on Flomax. 3. Severe morbid obesity sleep apnea on CPAP. Will need to set him up for CPAP. Consider pulmonary consult. 4. DM Type II s/p rt BKA check A1c, UPCR 5. Hypertension with stable blood pressures 6. CAD s/p PCI 7. acute on chronic diastolic HF. Check echo. Continue lasix. BNP minimally elevated at 365 on admit 8. HPL on statin 9. PAF on warfarin 10 Acute cellulitis of LLE on iv antibx primary care mgmt. 11. Hyponatremia likely due to volume expansion 12. Hypokalemia replace 13. Anemia check iron
--- NOTE | 2017-09-02 10:47 | CON.PCM_ITS ---
Consultation - Renal 09/02/17 PCP/ Referring MD: Requesting physician: Suzette Hernandez Primary care physician: Sharan Rae Reason for Consultation:: JAILENE - History of Present Illness History of Present Illness: The patient is a 56 year old male resident of [facility] with past medical history of chronic diastolic CHF, COPD, morbid obesity, MATTHEW on CPAP, type 2 DM for 22 years s/p Rt BKA, on insulin, hypertension comes in with complaints of shortness of breath ongoing for the past 2 months associated with orthopnea, PND and left leg swelling. He presented with acute kidney injury with a creatinine of 2.45 improved to 2.15 after Bright catheter insertion. Baseline creatinine appears to be at 1.05 in February 2016. He complained of urinary hesitancy, dribbling, weak urine stream. He history of BPH, by the [place] clinic. He has been seen by a body art technician he believes at the [place]. He had a prolonged hospitalization for 10 months back in March 2015 to December 2015 for respiratory arrest requiring tracheostomy at [facility] with subsequent admission to [facility]. He is morbidly obese and sedentary at [facility] due to debilitation, chronic pain syndrome from back pain. He is followed by Dr. Russell. He denied any chest pain. His appetite has been good without nausea or vomiting. He has a history of weight gain. He complains of constipation with increased abdominal distention and discomfort. He does not know what his sugar control has been. He is on insulin for diabetes. He was started on iv antibiotics for leg cellulitis. He has tremors in his upper extremities that is chronic. Chest X- ray shows vascular congestion. BNP was 365.7. Kidney US is ordered. - Allergies Allergies: Allergies ciprofloxacin [From Cipro] Allergy (Verified 09/01/17 15:48) itching/burning when given IV ciprofloxacin HCl [From Cipro] Allergy (Verified 09/01/17 15:48) Unknown ibuprofen [From Motrin] Allergy (Verified 09/01/17 15:48) elevated white count? tramadol Allergy (Verified 09/01/17 15:48) makes me shake/twitch venom-honey bee [bee venom (honey bee)] Allergy (Verified 09/01/17 15:48) Shortness of breath - Current Medications Current Medications: Current Medications Hydrocodone Bitart/Acetaminophen ([place] 5mg-325mg) 1 tablet PO BID PRN PRN PRN Reason: BREAKTHROUGH PAIN (>4/10) Al Hydroxide/Mg Hydroxide (Mylanta Ii) 30 ml PO Q4H PRN PRN PRN Reason: gi distress Albuterol/Ipratropium (Duoneb) 3 ml INHALATION Q4H PRN PRN PRN Reason: SOB &/OR WHEEZING Albuterol/Ipratropium (Duoneb) 3 ml INHALATION Q4HWA.RT [facility] Last Admin: 09/02/17 07:07 Dose: 3 ml Atorvastatin Calcium (Lipitor) 20 mg PO QHS [facility] Last Admin: 09/01/17 22:25 Dose: 20 mg Bisacodyl (Dulcolax) 10 mg RECTAL PRN PRN PRN Reason: Constipation Buspirone HCl (Buspar) 5 mg PO TID [facility] Last Admin: 09/02/17 05:43 Dose: 5 mg Cholecalciferol (Vitamin D) 2,000 unit PO DAILY [facility] Last Admin: 09/02/17 10:00 Dose: 2,000 unit Dextrose (D50w Syringe) 0 gm IV X1 PRN; Protocol PRN Reason: Hypoglycemia Duloxetine HCl (Cymbalta) 120 mg PO DAILY [facility] Last Admin: 09/02/17 10:00 Dose: 120 mg Furosemide (Lasix) 40 mg IV DAILY [facility] Last Admin: 09/02/17 10:01 Dose: 40 mg Glucagon () 1 mg IM .X1 PRN PRN Reason: Hypoglycemia Guaifenesin (Robitussin) 10 ml PO Q4H PRN PRN PRN Reason: COUGH Heparin Sodium (Porcine) (Heparin Na) 5,000 unit SC BID [facility] Last Admin: 09/02/17 10:01 Dose: 5,000 units Hydroxyzine Pamoate (Vistaril) 25 mg PO Q6H PRN PRN PRN Reason: ANXIETY Cefazolin Sodium 0.5 gm/ (Sodium Chloride) 50 mls @ 100 mls/hr IV Q12 [facility] Last Admin: 09/02/17 10:01 Dose: 100 mls/hr Sodium Chloride () 250 mls @ 15 mls/hr IV .[id number] PRN PRN Reason: SALINE FLUSH Insulin Aspart (Novolog Flexpen (Bkc)) 0 units SC ACHS [facility] PRN Reason: Protocol Last Admin: 09/02/17 07:38 Dose: Not Given Insulin Aspart (Novolog Flexpen (Bkc)) 10 units SC TIDCM [facility] Last Admin: 09/02/17 07:49 Dose: 10 u Magnesium Hydroxide (Milk Of Magnesia) 30 ml PO DAILY PRN PRN Reason: Constipation Melatonin (Melatonin) 3 mg PO QHS [facility] Last Admin: 09/01/17 22:24 Dose: 3 mg Metoprolol Tartrate (Lopressor (Beta Ronald)) 25 mg PO BID [facility] Last Admin: 09/02/17 10:00 Dose: 25 mg Mirtazapine (Remeron) 15 mg PO QHS [facility] Last Admin: 09/01/17 22:25 Dose: 15 mg Morphine Sulfate (Ms Contin) 30 mg PO Q8 [facility] Last Admin: 09/02/17 05:43 Dose: 30 mg [facility]it[facility]) [facility] Last Admin: 09/02/17 07:49 Dose: 1 tablet Nitroglycerin (Nitrostat) 0.4 mg SUBLINGUAL Q5M PRN PRN Reason: Chest Pain Ondansetron HCl (Zofran) 4 mg IV Q6H PRN PRN PRN Reason: NAUSEA/VOMITING Pantoprazole Sodium (Protonix) 20 mg PO DAILY [facility] Last Admin: 09/02/17 10:01 Dose: 20 mg Pregabalin (Lyrica) 50 mg PO BID [facility] Last Admin: 09/02/17 10:01 Dose: 50 mg Senna (Senokot) 1 tablet PO BID [facility] Last Admin: 09/02/17 10:00 Dose: 1 tablet Sodium Biphosphate/Sodium Phosphate (Fleet Enema) 1 bottle RECTAL DAILY PRN PRN PRN Reason: Constipation Sodium Chloride () 5 - 30 ml IV UD PRN PRN Reason: SALINE FLUSH Last Admin: 09/02/17 10:02 Dose: 10 ml Tamsulosin HCl (Flomax) 0.4 mg PO QHS [facility] Last Admin: 09/01/17 22:25 Dose: 0.4 mg Thiamine HCl ([facility]itamin B1) [facility] Last Admin: 09/02/17 07:49 Dose: 100 mg - Past Medical History Past Medical History (Chronic Problems): Chronic Problems (Last Reviewed 07/17/17 @ 06:30 by Татьяна Carrera) Diabetes mellitus, type 2 (Chronic) Hypertension (Chronic) Hyperlipidemia (Chronic) Chronic obstructive lung disease (Chronic) Chronic diastolic CHF (congestive heart failure) (Chronic) ischemic cardiomyopathy Obstructive sleep apnea (Chronic) Back pain (Chronic) CAD (coronary artery disease) (Chronic) Status post the first OM the LCx appears to be occluded First OM with proximal 50-75% appearing stenosis followed by minimal luminal irregularities - recommended medical management Depression (Chronic) Nicotine dependence (Chronic) Microcytic anemia (Chronic) Chronic respiratory failure with hypoxia (Chronic) Morbid obesity with BMI of 40.0-44.9, adult (Chronic) PAF (paroxysmal atrial fibrillation) (Chronic) - Past Surgical History Surgical History: - - Right 2nd toe amputation, cardiac catheterization, right ankle surgery, right foot surgery secondary to fracture, tracheostomy, status below right knee amputation. - Social History Smoking Status: Former smoker - Family History Maternal History Items: Hypertension Paternal History Items: Diabetes, Hypertension Sibling History Items: No pertinent history Review of Systems Constitutional: Reports: Weakness, Fatigue. Denies: Anorexia, Chills, Fever Eyes: Denies: Blurred vision HEENT: Denies: Head Aches Cardiovascular: Reports: Edema. Denies: Chest Pain, Orthopnea, Palpitations, Syncope Respiratory: Reports: Shortness of Breath, Shortness of breath at rest, - - MATTHEW on CPAP, - - hx tracheostomy. Denies: Cough Gastrointestinal: Reports: Abdominal Pain - distension, Constipation, - - no anorexia. Denies: Diarrhea, Nausea, Vomiting Genitourinary: Reports: Hesitancy, Retention, Urgency, - - BPH on flomax. Denies: Dysuria Musculoskeletal: Reports: Arm Pain, Back Pain, Foot Pain, - - chronic pain syndrome, rt BKA Neurological: Denies: Blurred vision Psychiatric: Reports: Depression. Denies: Anxiety Hematologic/ Lymphatic: Reports: Anemia - Physical Exam General: Alert, Oriented x3, Cooperative, Well nourished, - - super morbid obesity HEENT: Atraumatic Oral: Moist Mucosa Neck: No JVD Lungs: Clear to auscultation, Diminished Cardiovascular: Regular rate, - Abdomen: Bowel Sounds Present, Distended, Obese - super, Tender Extremities: Edema Skin: - - erythema with white patch on LLE, s/p rt BKA Musculoskeletal: No Muscle Wasting Neurological: Cranial nerves II-XII grossly intact, - - twitching of BUE. Psych/Mental Status: Normal Affect, Appropriate, Alert and oriented to time, place, person, mood and affect Vital Signs Temp Pulse Resp BP Pulse Ox 98.2 F 116 H 14 151/65 H 90 09/02/17 09:00 09/02/17 10:00 09/02/17 09:00 09/02/17 09:00 09/02/17 09:00 Oxygen Flow Rate 2 Oxygen Delivery Method Nasal Cannula Weight: 139.2 kg Body Mass Index (BMI) 48.5 Finger Stick Blood Glucose 72 Intake and Output for Last 24 Hours 08/31/17 09/01/17 09/02/17 23:59 23:59 23:59 Intake Total 433.6 / 433.6 Output Total 2575 / 2575 Balance -2141.4 / -2141.4 Laboratory Tests Past 24 Hrs 09/01/17 09/01/17 09/01/17 20:15 22:20 22:20 WBC RBC Hgb Hct MCV MCH MCHC RDW RDW Differential Plt Count MPV PT INR Sodium Potassium Chloride Carbon Dioxide Anion Gap BUN Creatinine Estim Creat Clear Calc Est GFR (MDRD) Af Amer Est GFR (MDRD) Non-Af BUN/Creatinine Ratio Glucose Calcium Troponin I 0.04 Ur Random Sodium 34 Urine Creatinine 35.50 09/02/17 09/02/17 09/02/17 00:03 03:56 03:56 WBC 11.6 H RBC 3.82 L Hgb 9.4 L Hct 30.1 L MCV 78.8 L MCH 24.6 L MCHC 31.2 L RDW 16.4 H RDW Differential 45.8 H Plt Count 360 MPV 9.7 PT 25.7 H INR 2.5 Sodium Potassium Chloride Carbon Dioxide Anion Gap BUN Creatinine Estim Creat Clear Calc Est GFR (MDRD) Af Amer Est GFR (MDRD) Non-Af BUN/Creatinine Ratio Glucose Calcium Troponin I 0.04 Ur Random Sodium Urine Creatinine 09/02/17 09/02/17 03:56 09:40 WBC RBC Hgb Hct MCV MCH MCHC RDW RDW Differential Plt Count MPV PT INR Sodium 133 L Potassium 3.3 L Chloride 94 L Carbon Dioxide 28.0 Anion Gap 11 BUN 71 H Creatinine 2.15 H Estim Creat Clear Calc 36.23 Est GFR (MDRD) Af Amer 41 L Est GFR (MDRD) Non-Af 34 L BUN/Creatinine Ratio 33.0 H Glucose 92 Calcium 8.6 Troponin I 0.03 0.03 Ur Random Sodium Urine Creatinine POC Glucose 09/02/17 09/02/17 09/01/17 06:45 04:30 22:21 POC Glucose 110 106 91 Clinical Impression(s) from Imaging Studies Chest X-Ray 09/01/17 15:40 IMPRESSION: Congestive heart failure. Electronically Signed: Leticia Soto MD at 16:04 EST Tel , Service support , Assessment/Plan 1. 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 Baseline creatinine 1.05 in February 2016 creatinine 2.45 on admission improved to 2.15 today after Bright catheter inserted. Renal ultrasound pending. 2. History of BPH on Flomax. 3. Severe morbid obesity sleep apnea on CPAP. Will need to set him up for CPAP. Consider pulmonary consult. 4. DM Type II s/p rt BKA check A1c, UPCR 5. Hypertension with stable blood pressures 6. CAD s/p PCI 7. acute on chronic diastolic HF. Check echo. Continue lasix. BNP minimally elevated at 365 on admit 8. HPL on statin 9. PAF on warfarin 10 Acute cellulitis of LLE on iv antibx primary care mgmt. 11. Hyponatremia likely due to volume expansion 12. Hypokalemia replace 13. Anemia check iron
[2017-09-02 12:38] LABS: Bacteria 0 SEEN /hpf (None Seen); Mucous, Urine 0 SEEN /hpf (<or=2+); Red Blood Cells-Urine 0 SEEN /hpf (0-5); Squamous Epithelial Cells - UA 0 SEEN /hpf (0-5); White Blood Cells 0 SEEN /hpf (0-5)
[2017-09-02 12:41] LABS: Color, Urine Yellow (Yellow); Glucose, Dipstick Normal (Normal); Ketone-Dipstick Negative (Negative); Leukocyte Esterase-Dipstick Negative /ul (Negative); Nitrite-Dipstick Negative (Negative); Occult Blood-Urine Negative /ul (Negative); Protein-Dipstick 15 mg/dl (Negative); Urine Bilirubin Dipstick Negative (Negative); Urine Clarity Clear (Clear); Urine Urobilinogen Normal (Normal)
[2017-09-02 12:57] LABS: Protein, Urine (Random) 13.9 mg/dL (<11.9)
[2017-09-02 14:01] LABS: Bedside Glucose 246 mg/dL (70-110)
--- NOTE | 2017-09-02 15:39 | PCM.PN.HOSP ---
Patient Problems: Active and Suspected Problems (Last Reviewed 07/17/17 @ 06:30 by Татьяна Carrera) Cellulitis of left lower extremity without foot (Acute) Acute on chronic diastolic (congestive) heart failure (Acute) Subjective: Erythema of the left lower extremity. Still with edema lower extremities. Vitals/I&O's: Vital Signs Temp Pulse Resp BP Pulse Ox 36.8 C 105 H 16 151/65 H 90 09/02/17 09:00 09/02/17 15:09 09/02/17 14:39 09/02/17 09:00 09/02/17 09:00 Oxygen Flow Rate 2 Oxygen Delivery Method Nasal Cannula Weight: 139.2 kg Body Mass Index (BMI) 48.5 Finger Stick Blood Glucose 72 Intake and Output for Last 24 Hours 08/31/17 09/01/17 09/02/17 23:59 23:59 23:59 Intake Total 1117.6 / 1117.6 Output Total 3775 / 3775 Balance -2657.4 / -2657.4 General: Alert, Cooperative, No apparent distress HEENT: Atraumatic, Normocephalic Neck: No Nodes, Thyroid Normal Size and Texture Lungs: Clear to auscultation, Normal air movement, No rhonchi, No wheeze Cardiovascular: Regular rate, Regular Rhythm, Normal S1, Normal S2 Abdomen: Bowel Sounds Present, Soft, Non Tender, Non-Distended, No Hepato-splenomegaly Extremities: No clubbing, No cyanosis, Edema Skin: No rashes, No breakdown, - - Erythema of the left lower extremity more medially and anteriorly. Musculoskeletal: No Tenderness to Palpation of Joints or Extremities, No Muscle Wasting Psych/Mental Status: Normal Affect, Appropriate Laboratory Results 09/01/17 20:15: Troponin I 0.04 09/01/17 22:20: Ur Random Sodium 34 09/01/17 22:20: Urine Creatinine 35.50 09/01/17 22:21: POC Glucose 91 09/02/17 00:03: Troponin I 0.04 09/02/17 03:56: PT 25.7 H, INR 2.5 09/02/17 03:56: WBC 11.6 H, RBC 3.82 L, Hgb 9.4 L, Hct 30.1 L, MCV 78.8 L, MCH 24.6 L, MCHC 31.2 L, RDW 16.4 H, RDW Differential 45.8 H, Plt Count 360, MPV 9.7 09/02/17 03:56: Sodium 133 L, Potassium 3.3 L, Chloride 94 L, Carbon Dioxide 28.0, Anion Gap 11, BUN 71 H, Creatinine 2.15 H, Estim Creat Clear Calc 36.23, Est GFR (MDRD) Af Amer 41 L, Est GFR (MDRD) Non-Af 34 L, BUN/Creatinine Ratio 33.0 H, Glucose 92, Calcium 8.6, Troponin I 0.03 09/02/17 04:30: POC Glucose 106 09/02/17 06:45: POC Glucose 110 09/02/17 09:40: Troponin I 0.03 09/02/17 12:20: POC Glucose 246 H 09/02/17 12:29: Urine Creatinine 19.80 09/02/17 12:29: U Random Total Protein 13.9 H 09/02/17 12:29: Urine Color Yellow, Urine Clarity Clear, Urine pH 6.0, Ur Specific [place] 1.010, Urine Protein 15 H, Urine Glucose (UA) Normal, Urine Ketones Negative, Urine Occult Blood Negative, Urine Nitrite Negative, Urine Bilirubin Negative, Urine Urobilinogen Normal, Ur Leukocyte Esterase Negative, Urine RBC 0 SEEN, Urine WBC 0 SEEN, Ur Squamous Epith Cells 0 SEEN, Urine Bacteria 0 SEEN, Urine Mucus 0 SEEN Current Medications Hydrocodone Bitart/Acetaminophen ([place] 5mg-325mg) 1 tablet PO BID PRN PRN PRN Reason: BREAKTHROUGH PAIN (>4/10) Al Hydroxide/Mg Hydroxide (Mylanta Ii) 30 ml PO Q4H PRN PRN PRN Reason: gi distress Albuterol/Ipratropium (Duoneb) 3 ml INHALATION Q4H PRN PRN PRN Reason: SOB &/OR WHEEZING Albuterol/Ipratropium (Duoneb) 3 ml INHALATION Q4HWA.RT [facility] Last Admin: 09/02/17 14:38 Dose: 3 ml Atorvastatin Calcium (Lipitor) 20 mg PO QHS [facility] Last Admin: 09/01/17 22:25 Dose: 20 mg Bisacodyl (Dulcolax) 10 mg RECTAL PRN PRN PRN Reason: Constipation Buspirone HCl (Buspar) 5 mg PO TID [facility] Last Admin: 09/02/17 13:53 Dose: 5 mg Cholecalciferol (Vitamin D) 2,000 unit PO DAILY [facility] Last Admin: 09/02/17 10:00 Dose: 2,000 unit Dextrose (D50w Syringe) 0 gm IV X1 PRN; Protocol PRN Reason: Hypoglycemia Duloxetine HCl (Cymbalta) 120 mg PO DAILY [facility] Last Admin: 09/02/17 10:00 Dose: 120 mg Furosemide (Lasix) 40 mg IV DAILY [facility] Last Admin: 09/02/17 10:01 Dose: 40 mg Glucagon () 1 mg IM .X1 PRN PRN Reason: Hypoglycemia Guaifenesin (Robitussin) 10 ml PO Q4H PRN PRN PRN Reason: COUGH Heparin Sodium (Porcine) (Heparin Na) 5,000 unit SC BID [facility] Last Admin: 09/02/17 10:01 Dose: 5,000 units Hydroxyzine Pamoate (Vistaril) 25 mg PO Q6H PRN PRN PRN Reason: ANXIETY Cefazolin Sodium 0.5 gm/ (Sodium Chloride) 50 mls @ 100 mls/hr IV Q12 [facility] Last Admin: 09/02/17 10:01 Dose: 100 mls/hr Sodium Chloride () 250 mls @ 15 mls/hr IV .[id number] PRN PRN Reason: SALINE FLUSH Insulin Aspart (Novolog Flexpen (Bkc)) 0 units SC ACHS [facility] PRN Reason: Protocol Last Admin: 09/02/17 12:22 Dose: 2 u Insulin Aspart (Novolog Flexpen (Bkc)) 10 units SC TIDCM [facility] Last Admin: 09/02/17 12:22 Dose: 10 u Magnesium Hydroxide (Milk Of Magnesia) 30 ml PO DAILY PRN PRN Reason: Constipation Melatonin (Melatonin) 3 mg PO QHS [facility] Last Admin: 09/01/17 22:24 Dose: 3 mg Metoprolol Tartrate (Lopressor (Beta Carlos Eduardo)) 25 mg PO BID [facility] Last Admin: 09/02/17 10:00 Dose: 25 mg Mirtazapine (Remeron) 15 mg PO QHS [facility] Last Admin: 09/01/17 22:25 Dose: 15 mg Morphine Sulfate (Ms Contin) 30 mg PO Q8 [facility] Last Admin: 09/02/17 13:53 Dose: 30 mg [facility]it[facility] ([facility]amin) [facility] Last Admin: 09/02/17 07:49 Dose: 1 tablet Nitroglycerin (Nitrostat) 0.4 mg SUBLINGUAL Q5M PRN PRN Reason: Chest Pain Ondansetron HCl (Zofran) 4 mg IV Q6H PRN PRN PRN Reason: NAUSEA/VOMITING Pantoprazole Sodium (Protonix) 20 mg PO DAILY [facility] Last Admin: 09/02/17 10:01 Dose: 20 mg Potassium Chloride (K-Dur) [facility]q [facility] Pregabalin (Lyrica) 50 mg PO BID [facility] Last Admin: 09/02/17 10:01 Dose: 50 mg Senna (Senokot) 1 tablet PO BID [facility] Last Admin: 09/02/17 10:00 Dose: 1 tablet Sodium Biphosphate/Sodium Phosphate (Fleet Enema) 1 bottle RECTAL DAILY PRN PRN PRN Reason: Constipation Sodium Chloride () 5 - 30 ml IV UD PRN PRN Reason: SALINE FLUSH Last Admin: 09/02/17 10:02 Dose: 10 ml Tamsulosin HCl (Flomax) 0.4 mg PO QHS [facility] Last Admin: 09/01/17 22:25 Dose: 0.4 mg Thiamine HCl (Vitamin B1) [facility] Last Admin: 09/02/17 07:49 Dose: 100 mg Assessment/Plan Active and Suspected Problems (Last Reviewed 07/17/17 @ 06:30 by Татьяна Carrera) Cellulitis of left lower extremity without foot (Acute) Acute on chronic diastolic (congestive) heart failure (Acute) 1. Left lower extremity cellulitis But not evident on his right lower extremity with status post below the knee amputation that this is actually a cellulitis rather than lymphedematous changes associated with chronic edema. Patient is only on ceftezole and. I be concerned for staph versus strep. I do not feel that his leg is improved. May discontinue the cefazolin and start him on vancomycin. 2. Acute heart failure with preserved ejection fraction EF is a 55% from echocardiogram from August 08, 2017. Continue with IV Lasix, which change at over to twice daily from once daily as patient is still very volume overloaded. Will not start any beta-carlos eduardo in light of the acute heart failure exacerbation Hold off on CHAPO inhibitors and angiotensin receptor blockers in light of acute kidney injury, presumed 3. Acute kidney injury Creatinine is 2.15, which is improved from 2.45 yesterday. Patient's last creatinine was from February 2016 were is 1.23 at that time. May be related with urinary retention. Renal ultrasound was limited but show no obvious hydronephrosis. 4. Paroxysmal atrial fibrillation INR therapeutic. Continue to monitor. 5. DT prophylaxis: Patient is anticoagulated. Advanced care planning: Spent an additional 20 minutes outside of the history and physical discussing with patient about advanced care planning. Spoke about DNR and CPR. He started this conversation off by ask about his prognosis, to which I told him would be good. But patient states that he lives in a longterm and has done so for the past year and a half. I told him that we can certainly address his medical issues but the future may hold something else that may set him back further. Patient wishes to think further about his CODE STATUS but is open to discussing further with palliative care getting more information from them. Code Visit Inpatient E&M: 79282 Subs Hosp L2 Procedures: 39457 Advncd Care Plan 30 Min
--- NOTE | 2017-09-02 15:49 | PN_ITS ---
Patient Problems: Active and Suspected Problems (Last Reviewed 07/17/17 @ 06:30 by Татьяна Carrera) Cellulitis of left lower extremity without foot (Acute) Acute on chronic diastolic (congestive) heart failure (Acute) Subjective: Erythema of the left lower extremity. Still with edema lower extremities. Vitals/I&O's: Vital Signs Temp Pulse Resp BP Pulse Ox 36.8 C 105 H 16 151/65 H 90 09/02/17 09:00 09/02/17 15:09 09/02/17 14:39 09/02/17 09:00 09/02/17 09:00 Oxygen Flow Rate 2 Oxygen Delivery Method Nasal Cannula Weight: 139.2 kg Body Mass Index (BMI) 48.5 Finger Stick Blood Glucose 72 Intake and Output for Last 24 Hours 08/31/17 09/01/17 09/02/17 23:59 23:59 23:59 Intake Total 1117.6 / 1117.6 Output Total 3775 / 3775 Balance -2657.4 / -2657.4 General: Alert, Cooperative, No apparent distress HEENT: Atraumatic, Normocephalic Neck: No Nodes, Thyroid Normal Size and Texture Lungs: Clear to auscultation, Normal air movement, No rhonchi, No wheeze Cardiovascular: Regular rate, Regular Rhythm, Normal S1, Normal S2 Abdomen: Bowel Sounds Present, Soft, Non Tender, Non-Distended, No Hepato- splenomegaly Extremities: No clubbing, No cyanosis, Edema Skin: No rashes, No breakdown, - - Erythema of the left lower extremity more medially and anteriorly. Musculoskeletal: No Tenderness to Palpation of Joints or Extremities, No Muscle Wasting Psych/Mental Status: Normal Affect, Appropriate Laboratory Results 09/01/17 20:15: Troponin I 0.04 09/01/17 22:20: Ur Random Sodium 34 09/01/17 22:20: Urine Creatinine 35.50 09/01/17 22:21: POC Glucose 91 09/02/17 00:03: Troponin I 0.04 09/02/17 03:56: PT 25.7 H, INR 2.5 09/02/17 03:56: WBC 11.6 H, RBC 3.82 L, Hgb 9.4 L, Hct 30.1 L, MCV 78.8 L, MCH 24.6 L, MCHC 31.2 L, RDW 16.4 H, RDW Differential 45.8 H, Plt Count 360, MPV 9.7 09/02/17 03:56: Sodium 133 L, Potassium 3.3 L, Chloride 94 L, Carbon Dioxide 28.0, Anion Gap 11, BUN 71 H, Creatinine 2.15 H, Estim Creat Clear Calc 36.23, Est GFR (MDRD) Af Amer 41 L, Est GFR (MDRD) Non-Af 34 L, BUN/Creatinine Ratio 33.0 H, Glucose 92, Calcium 8.6, Troponin I 0.03 09/02/17 04:30: POC Glucose 106 09/02/17 06:45: POC Glucose 110 09/02/17 09:40: Troponin I 0.03 09/02/17 12:20: POC Glucose 246 H 09/02/17 12:29: Urine Creatinine 19.80 09/02/17 12:29: U Random Total Protein 13.9 H 09/02/17 12:29: Urine Color Yellow, Urine Clarity Clear, Urine pH 6.0, Ur Specific [place] 1.010, Urine Protein 15 H, Urine Glucose (UA) Normal, Urine Ketones Negative, Urine Occult Blood Negative, Urine Nitrite Negative, Urine Bilirubin Negative, Urine Urobilinogen Normal, Ur Leukocyte Esterase Negative, Urine RBC 0 SEEN, Urine WBC 0 SEEN, Ur Squamous Epith Cells 0 SEEN, Urine Bacteria 0 SEEN, Urine Mucus 0 SEEN Current Medications Hydrocodone Bitart/Acetaminophen ([place] 5mg-325mg) 1 tablet PO BID PRN PRN PRN Reason: BREAKTHROUGH PAIN (>4/10) Al Hydroxide/Mg Hydroxide (Mylanta Ii) 30 ml PO Q4H PRN PRN PRN Reason: gi distress Albuterol/Ipratropium (Duoneb) 3 ml INHALATION Q4H PRN PRN PRN Reason: SOB &/OR WHEEZING Albuterol/Ipratropium (Duoneb) 3 ml INHALATION Q4HWA.RT [facility] Last Admin: 09/02/17 14:38 Dose: 3 ml Atorvastatin Calcium (Lipitor) 20 mg PO QHS [facility] Last Admin: 09/01/17 22:25 Dose: 20 mg Bisacodyl (Dulcolax) 10 mg RECTAL PRN PRN PRN Reason: Constipation Buspirone HCl (Buspar) 5 mg PO TID [facility] Last Admin: 09/02/17 13:53 Dose: 5 mg Cholecalciferol (Vitamin D) 2,000 unit PO DAILY [facility] Last Admin: 09/02/17 10:00 Dose: 2,000 unit Dextrose (D50w Syringe) 0 gm IV X1 PRN; Protocol PRN Reason: Hypoglycemia Duloxetine HCl (Cymbalta) 120 mg PO DAILY [facility] Last Admin: 09/02/17 10:00 Dose: 120 mg Furosemide (Lasix) 40 mg IV DAILY [facility] Last Admin: 09/02/17 10:01 Dose: 40 mg Glucagon () 1 mg IM .X1 PRN PRN Reason: Hypoglycemia Guaifenesin (Robitussin) 10 ml PO Q4H PRN PRN PRN Reason: COUGH Heparin Sodium (Porcine) (Heparin Na) 5,000 unit SC BID [facility] Last Admin: 09/02/17 10:01 Dose: 5,000 units Hydroxyzine Pamoate (Vistaril) 25 mg PO Q6H PRN PRN PRN Reason: ANXIETY Cefazolin Sodium 0.5 gm/ (Sodium Chloride) 50 mls @ 100 mls/hr IV Q12 [facility] Last Admin: 09/02/17 10:01 Dose: 100 mls/hr Sodium Chloride () 250 mls @ 15 mls/hr IV .[id number] PRN PRN Reason: SALINE FLUSH Insulin Aspart (Novolog Flexpen (Bkc)) 0 units SC ACHS [facility] PRN Reason: Protocol Last Admin: 09/02/17 12:22 Dose: 2 u Insulin Aspart (Novolog Flexpen (Bkc)) 10 units SC TIDCM [facility] Last Admin: 09/02/17 12:22 Dose: 10 u Magnesium Hydroxide (Milk Of Magnesia) 30 ml PO DAILY PRN PRN Reason: Constipation Melatonin (Melatonin) 3 mg PO QHS [facility] Last Admin: 09/01/17 22:24 Dose: 3 mg Metoprolol Tartrate (Lopressor (Beta Carlos Eduardo)) 25 mg PO BID [facility] Last Admin: 09/02/17 10:00 Dose: 25 mg Mirtazapine (Remeron) 15 mg PO QHS [facility] Last Admin: 09/01/17 22:25 Dose: 15 mg Morphine Sulfate (Ms Contin) 30 mg PO Q8 [facility] Last Admin: 09/02/17 13:53 Dose: 30 mg [facility]it[facility]) [facility] Last Admin: 09/02/17 07:49 Dose: 1 tablet Nitroglycerin (Nitrostat) 0.4 mg SUBLINGUAL Q5M PRN PRN Reason: Chest Pain Ondansetron HCl (Zofran) 4 mg IV Q6H PRN PRN PRN Reason: NAUSEA/VOMITING Pantoprazole Sodium (Protonix) 20 mg PO DAILY [facility] Last Admin: 09/02/17 10:01 Dose: 20 mg Potassium Chloride (K-Dur) [facility] Pregabalin (Lyrica) 50 mg PO BID [facility] Last Admin: 09/02/17 10:01 Dose: 50 mg Senna (Senokot) 1 tablet PO BID [facility] Last Admin: 09/02/17 10:00 Dose: 1 tablet Sodium Biphosphate/Sodium Phosphate (Fleet Enema) 1 bottle RECTAL DAILY PRN PRN PRN Reason: Constipation Sodium Chloride () 5 - 30 ml IV UD PRN PRN Reason: SALINE FLUSH Last Admin: 09/02/17 10:02 Dose: 10 ml Tamsulosin HCl (Flomax) 0.4 mg PO QHS [facility] Last Admin: 09/01/17 22:25 Dose: 0.4 mg Thiamine HCl ([facility]itamin B1) [facility] Last Admin: 09/02/17 07:49 Dose: 100 mg Assessment/Plan Active and Suspected Problems (Last Reviewed 07/17/17 @ 06:30 by Татьяна Carrera) Cellulitis of left lower extremity without foot (Acute) Acute on chronic diastolic (congestive) heart failure (Acute) 1. Left lower extremity cellulitis * But not evident on his right lower extremity with status post below the knee amputation that this is actually a cellulitis rather than lymphedematous changes associated with chronic edema. * Patient is only on ceftezole and. I be concerned for staph versus strep. I do not feel that his leg is improved. May discontinue the cefazolin and start him on vancomycin. 2. Acute heart failure with preserved ejection fraction * EF is a 55% from echocardiogram from August 08, 2017. * Continue with IV Lasix, which change at over to twice daily from once daily as patient is still very volume overloaded. * Will not start any beta-carlos eduardo in light of the acute heart failure exacerbation * Hold off on CHAPO inhibitors and angiotensin receptor blockers in light of acute kidney injury, presumed 3. Acute kidney injury * Creatinine is 2.15, which is improved from 2.45 yesterday. Patient's last creatinine was from February 2016 were is 1.23 at that time. * May be related with urinary retention. * Renal ultrasound was limited but show no obvious hydronephrosis. 4. Paroxysmal atrial fibrillation * INR therapeutic. Continue to monitor. 5. DT prophylaxis: Patient is anticoagulated. Advanced care planning: Spent an additional 20 minutes outside of the history and physical discussing with patient about advanced care planning. Spoke about DNR and CPR. He started this conversation off by ask about his prognosis, to which I told him would be good. But patient states that he lives in a fdc and has done so for the past year and a half. I told him that we can certainly address his medical issues but the future may hold something else that may set him back further. Patient wishes to think further about his CODE STATUS but is open to discussing further with palliative care getting more information from them. Code Visit Inpatient E&M: 82231 Subs Hosp L2 Procedures: [id number] Advncd Care Plan 30 Min
[2017-09-02 17:51] LABS: Bedside Glucose 279 mg/dL (70-110)
[2017-09-02] MEDS: HYDROcodone Bitartrate/Apap 5/325 Tablet PO (18:01)
[2017-09-02] MEDS: Tamsulosin HCl 0.4 MG Capsule PO (21:50)
[2017-09-02] MEDS: Atorvastatin Calcium 20 MG Tablet PO (21:51)
[2017-09-02] MEDS: MELATONIN 3 MG TABLET PO (21:52)
[2017-09-02] MEDS: Mirtazapine 15 MG Tablet PO (21:53)
[2017-09-03] VITALS (17 sets, daily range): BP systolic 134–156; BP diastolic 70–78; PULSE 98–116; RESP 16–20; TEMP 36.6–37.1; O2SAT 91–94
[2017-09-03] MEDS: Ipratropium/Albuterol Sulfate 3 ML AMPUL.NEB INHALATION ×5 (03:20→18:56)
[2017-09-03 06:40] LABS: Hematocrit 30.8 % (40-54); Hemoglobin 9.3 g/dl (13.0-16.5); International Normalized Ratio 1.9; Mean Corp Hgb Conc 30.2 g/gl (32-36); Mean Corpuscular Hgb 24.2 pg (27.0-32.0); Mean Platelet Vol. 9.6 fl (6.2-12.0); Platelet Count 318 K/mm3 (150-450); Prothrombin Time (Protime)PT. 20.6 SECONDS (11.7-14.9); RBC Distribution Width CV 16.4 % (11.6-14.6); RBC Distribution Width SD 46.8 fl (35.1-43.9); Red Blood Count 3.85 M/mm3 (4.6-6.2); White Blood Count 13.4 K/mm3 (4.4-11.0)
[2017-09-03 06:47] LABS: Scan Indicated on CBC? Y/N NO
[2017-09-03 06:50] LABS: Bedside Glucose 296 mg/dL (70-110)
[2017-09-03 07:17] LABS: Albumin, Serum 2.7 g/dL (3.2-5.0); BUN 57 mg/dL (7-18); BUN/Creat Ratio 29.8 RATIO (10-20); Calcium,Total 8.8 mg/dL (8.5-10.1); Chloride 94 mmol/L (98-107); Creatinine, Serum 1.91 mg/dL (0.70-1.30); EST Glomerular Filtration Rate 39 mL/min (>60); Est Glom Filt Rate - Afr Amer 47 mL/min (>60); Estimated Creatinine Clearance 40.79 ml/min; Ferritin 53 ng/mL (26-388); Glucose 301 mg/dL (74-106); Iron 21 ug/dL (65-175); Phosphorus 3.6 mg/dL (2.5-4.9); Potassium 2.9 mmol/L (3.5-5.1); Sodium Level 137 mmol/L (136-145)
[2017-09-03] MEDS: Multivitamins,Therapeutic Tablet 1 TABLET PO (08:11)
[2017-09-03] MEDS: Thiamine Hydrochloride 100 MG Tablet PO (08:11)
[2017-09-03] MEDS: HYDROcodone Bitartrate/Apap 5/325 Tablet PO ×2 (08:18→16:57)
[2017-09-03] MEDS: Magnesium Hydroxide 30 ML UDC PO (08:19)
--- NOTE | 2017-09-03 08:49 | PCM.RX.CS ---
Subjective/Objective Date: 09/03/17 Time: 08:49 Antibiotic: Vancomycin Type of Consult: New start Indications for Therapy: Skin/Soft Tissue Labs: Sodium 137 mmol/L (136-145) 09/03/17 05:35 Potassium 2.9 mmol/L (3.5-5.1) L 09/03/17 05:35 Chloride 94 mmol/L (98-107) L 09/03/17 05:35 Carbon Dioxide 32.0 mmol/L (21.0-32.0) 09/03/17 05:35 Anion Gap 11 (5-15) 09/02/17 03:56 BUN 57 mg/dL (7-18) H 09/03/17 05:35 Creatinine 1.91 mg/dL (0.70-1.30) H 09/03/17 05:35 Est GFR (MDRD) Af Amer 47 mL/min (>60) L 09/03/17 05:35 Est GFR (MDRD) Non-Af 39 mL/min (>60) L 09/03/17 05:35 BUN/Creatinine Ratio 29.8 RATIO (10-20) H 09/03/17 05:35 Glucose 301 mg/dL (74-106) H 09/03/17 05:35 Pharmacy Plan for Drug Dosing: Goal vancomycin trough 10-15 mcg/mL. Recommend vancomycin 2000mg IV x1, followed by vancomycin 1500mg IV q24h for est trough 12 mcg/mL. Check prior to 4th dose. Pharmacy Service will continue to monitor and adjust dosing as required. Pharmacy to order these labs: Trough - Vancomycin Labs to be done on (date): 09/06/17 Labs to be done (time): 10:00
--- NOTE | 2017-09-03 09:45 | PN.RENAL_ITS ---
Patient Problems: Active and Suspected Problems (Last Updated 09/02/17 @ 15:40 by Wesley Senior DO ) Cellulitis of left lower extremity without foot (Acute) Acute on chronic diastolic (congestive) heart failure (Acute) Subjective: Edema and abdominal distention improving. However patient does not feel well overall with generalized malaise. - Physical Exam General: Alert, Oriented x3, Cooperative, No apparent distress, - - Mildly obese Oral: Moist Mucosa Neck: Supple Lungs: Clear to auscultation Cardiovascular: Regular rate Abdomen: Bowel Sounds Present, Non Tender, Distended - Less distention Skin: - - Left lower extremity erythema, cellulitis Musculoskeletal: No Muscle Wasting Neurological: - - Myoclonic twitching upper extremities bilaterally Psych/Mental Status: Normal Affect, Appropriate, Alert and oriented to time, place, person, mood and affect Vital Signs Temp Pulse Resp BP Pulse Ox 98.7 F 99 18 141/77 H 94 09/03/17 08:32 09/03/17 08:32 09/03/17 08:32 09/03/17 08:32 09/03/17 08:32 Oxygen Flow Rate 2 Oxygen Delivery Method Nasal Cannula Weight: 139 kg Body Mass Index (BMI) 48.5 Finger Stick Blood Glucose 72 Intake and Output for Last 24 Hours 09/01/17 09/02/17 09/03/17 23:59 23:59 23:59 Intake Total 1947.6 / 1947.6 Output Total 6875 / 6875 1000 / 1000 Balance -4927.4 / -4927.4 -1000 / -1000 Laboratory Tests Past 24 Hrs 09/02/17 09/02/17 09/02/17 09:40 12:29 12:29 WBC RBC Hgb Hct MCV MCH MCHC RDW RDW Differential Plt Count MPV PT INR Sodium Potassium Chloride Carbon Dioxide BUN Creatinine Estim Creat Clear Calc Est GFR (MDRD) Af Amer Est GFR (MDRD) Non-Af BUN/Creatinine Ratio Glucose Hemoglobin A1c Calcium Phosphorus Iron Ferritin Troponin I 0.03 Albumin Urine Color Urine Clarity Urine pH Ur Specific [place] Urine Protein Urine Glucose (UA) Urine Ketones Urine Occult Blood Urine Nitrite Urine Bilirubin Urine Urobilinogen Ur Leukocyte Esterase Urine RBC Urine WBC Ur Squamous Epith Cells Urine Bacteria Urine Mucus U Random Total Protein 13.9 H Urine Creatinine 19.80 09/02/17 09/03/17 09/03/17 12:29 05:35 05:35 WBC 13.4 H RBC 3.85 L Hgb 9.3 L Hct 30.8 L MCV 80.0 MCH 24.2 L MCHC 30.2 L RDW 16.4 H RDW Differential 46.8 H Plt Count 318 MPV 9.6 PT 20.6 H INR 1.9 Sodium Potassium Chloride Carbon Dioxide BUN Creatinine Estim Creat Clear Calc Est GFR (MDRD) Af Amer Est GFR (MDRD) Non-Af BUN/Creatinine Ratio Glucose Hemoglobin A1c Calcium Phosphorus Iron Ferritin Troponin I Albumin Urine Color Yellow Urine Clarity Clear Urine pH 6.0 Ur Specific [place] 1.010 Urine Protein 15 H Urine Glucose (UA) Normal Urine Ketones Negative Urine Occult Blood Negative Urine Nitrite Negative Urine Bilirubin Negative Urine Urobilinogen Normal Ur Leukocyte Esterase Negative Urine RBC 0 SEEN Urine WBC 0 SEEN Ur Squamous Epith Cells 0 SEEN Urine Bacteria 0 SEEN Urine Mucus 0 SEEN U Random Total Protein Urine Creatinine 09/03/17 09/03/17 05:35 05:35 WBC RBC Hgb Hct MCV MCH MCHC RDW RDW Differential Plt Count MPV PT INR Sodium 137 Potassium 2.9 L Chloride 94 L Carbon Dioxide 32.0 BUN 57 H Creatinine 1.91 H Estim Creat Clear Calc 40.79 Est GFR (MDRD) Af Amer 47 L Est GFR (MDRD) Non-Af 39 L BUN/Creatinine Ratio 29.8 H Glucose 301 H Hemoglobin A1c 10.0 H Calcium 8.8 Phosphorus 3.6 Iron 21 L Ferritin 53 Troponin I Albumin 2.7 L Urine Color Urine Clarity Urine pH Ur Specific [place] Urine Protein Urine Glucose (UA) Urine Ketones Urine Occult Blood Urine Nitrite Urine Bilirubin Urine Urobilinogen Ur Leukocyte Esterase Urine RBC Urine WBC Ur Squamous Epith Cells Urine Bacteria Urine Mucus U Random Total Protein Urine Creatinine POC Glucose 09/03/17 09/02/17 09/02/17 06:48 17:21 12:20 POC Glucose 296 H 279 H 246 H Assessment/Plan Active and Suspected Problems (Last Updated 09/02/17 @ 15:40 by Wesley Senior DO ) Cellulitis of left lower extremity without foot (Acute) Acute on chronic diastolic (congestive) heart failure (Acute) 1. 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 Baseline creatinine 1.05 in February 2016 creatinine 2.45 on admission improved to 1.9 today after Bright catheter inserted. Renal ultrasound essentially unremarkable. Underlying diabetic nephropathy with urine protein creatinine ratio of 700 mg/gram creatinine 2. History of BPH on Flomax at [facility]. Continue with [place] 3. Severe morbid obesity sleep apnea on CPAP home. Will need to set him up for CPAP. Consider pulmonary consult. 4. DM Type II s/p rt BKA, A1c 10.0 5. Hypertension with stable blood pressures 6. CAD s/p PCI 7. acute on chronic diastolic HF. Check echo evaluate for pulmonary hypertension. Continue lasix. 8. HPL on statin 9. PAF on warfarin 10 Acute cellulitis of LLE on iv antibx primary care mgmt. 11. Hyponatremia likely due to volume expansion 12. Hypokalemia replace as needed 13. Anemia iron deficient. IV iron
[2017-09-03] MEDS: Furosemide 40 MG/4 ML Vial IV ×2 (10:03→21:10)
[2017-09-03] MEDS: 0.9% NaCl Peripheral Flush Adult/Peds IV ×2 (10:03→21:21)
[2017-09-03] MEDS: Pantoprazole Sodium 20 MG Tablet PO (10:08)
[2017-09-03] MEDS: Senna Tablet 1 TABLET PO ×2 (10:08→21:10)
[2017-09-03] MEDS: DULoxetine Hcl 60 MG Capsule 120 MG PO (10:08)
[2017-09-03] MEDS: Pregabalin 50 MG Capsule PO ×2 (10:08→21:11)
[2017-09-03] MEDS: Metoprolol Tartrate 25 MG Tablet PO ×2 (10:08→21:10)
--- NOTE | 2017-09-03 10:26 | CASEMGMT ---
SW sent updates to [facility]. SW to follow for return to [facility]. Melanie العلي MSW
--- NOTE | 2017-09-03 10:55 | PCM.PN.HOSP ---
Patient Problems: Active and Suspected Problems (Last Updated 09/02/17 @ 15:40 by Wesley Senior DO) Cellulitis of left lower extremity without foot (Acute) Acute on chronic diastolic (congestive) heart failure (Acute) Subjective: With left lower extremity erythema. Still short of breath but overall improved. Vitals/I&O's: Vital Signs Temp Pulse Resp BP Pulse Ox 37.1 C 113 H 18 141/77 H 94 09/03/17 08:32 09/03/17 10:08 09/03/17 08:32 09/03/17 08:32 09/03/17 08:32 Oxygen Flow Rate 2 Oxygen Delivery Method Nasal Cannula Weight: 139 kg Body Mass Index (BMI) 48.5 Finger Stick Blood Glucose 72 Intake and Output for Last 24 Hours 09/01/17 09/02/17 09/03/17 23:59 23:59 23:59 Intake Total 1947.6 / 1947.6 Output Total 6875 / 6875 1000 / 1000 Balance -4927.4 / -4927.4 -1000 / -1000 General: Alert, Cooperative, No apparent distress HEENT: Atraumatic, Normocephalic Neck: No Nodes, Thyroid Normal Size and Texture Lungs: Clear to auscultation, Normal air movement, No rhonchi, No wheeze Cardiovascular: Regular rate, Regular Rhythm, Normal S1, Normal S2, No murmurs Abdomen: Bowel Sounds Present, Soft, Non Tender, Non-Distended, No Hepato-splenomegaly Extremities: No Calf Tenderness, Edema Skin: - - Erythema on the medial leg from thigh down to the ankle. Musculoskeletal: No Tenderness to Palpation of Joints or Extremities, No Muscle Wasting Psych/Mental Status: Normal Affect, Appropriate Laboratory Results 09/02/17 12:20: POC Glucose 246 H 09/02/17 12:29: Urine Creatinine 19.80 09/02/17 12:29: U Random Total Protein 13.9 H 09/02/17 12:29: Urine Color Yellow, Urine Clarity Clear, Urine pH 6.0, Ur Specific [place] 1.010, Urine Protein 15 H, Urine Glucose (UA) Normal, Urine Ketones Negative, Urine Occult Blood Negative, Urine Nitrite Negative, Urine Bilirubin Negative, Urine Urobilinogen Normal, Ur Leukocyte Esterase Negative, Urine RBC 0 SEEN, Urine WBC 0 SEEN, Ur Squamous Epith Cells 0 SEEN, Urine Bacteria 0 SEEN, Urine Mucus 0 SEEN 09/02/17 17:21: POC Glucose 279 H 09/03/17 05:35: PT 20.6 H, INR 1.9 09/03/17 05:35: WBC 13.4 H, RBC 3.85 L, Hgb 9.3 L, Hct 30.8 L, MCV 80.0, MCH 24.2 L, MCHC 30.2 L, RDW 16.4 H, RDW Differential 46.8 H, Plt Count 318, MPV 9.6 09/03/17 05:35: Sodium 137, Potassium 2.9 L, Chloride 94 L, Carbon Dioxide 32.0, BUN 57 H, Creatinine 1.91 H, Estim Creat Clear Calc 40.79, Est GFR (MDRD) Af Amer 47 L, Est GFR (MDRD) Non-Af 39 L, BUN/Creatinine Ratio 29.8 H, Glucose 301 H, Calcium 8.8, Phosphorus 3.6, Iron 21 L, Ferritin 53, Albumin 2.7 L 09/03/17 05:35: Hemoglobin A1c 10.0 H 09/03/17 06:48: POC Glucose 296 H Current Medications Hydrocodone Bitart/Acetaminophen ([place] 5mg-325mg) 1 tablet PO BID PRN PRN PRN Reason: BREAKTHROUGH PAIN (>4/10) Last Admin: 09/03/17 08:18 Dose: 1 tablet Al Hydroxide/Mg Hydroxide (Mylanta Ii) 30 ml PO Q4H PRN PRN PRN Reason: gi distress Albuterol/Ipratropium (Duoneb) 3 ml INHALATION Q4H PRN PRN PRN Reason: SOB &/OR WHEEZING Albuterol/Ipratropium (Duoneb) 3 ml INHALATION Q4HWA.RT [facility] Last Admin: 09/03/17 07:07 Dose: 3 ml Atorvastatin Calcium (Lipitor) 20 mg PO QHS [facility] Last Admin: 09/02/17 21:51 Dose: 20 mg Bisacodyl (Dulcolax) 10 mg RECTAL PRN PRN PRN Reason: Constipation Buspirone HCl (Buspar) 5 mg PO TID [facility] Last Admin: 09/03/17 05:10 Dose: 5 mg Cholecalciferol (Vitamin D) 2,000 unit PO DAILY [facility] Last Admin: 09/02/17 10:00 Dose: 2,000 unit Dextrose (D50w Syringe) 0 gm IV X1 PRN; Protocol PRN Reason: Hypoglycemia Duloxetine HCl (Cymbalta) 120 mg PO DAILY [facility] Last Admin: 09/03/17 10:08 Dose: 120 mg Furosemide (Lasix) 40 mg IV BID [facility] Last Admin: 09/03/17 10:03 Dose: 40 mg Glucagon () 1 mg IM .X1 PRN PRN Reason: Hypoglycemia Guaifenesin (Robitussin) 10 ml PO Q4H PRN PRN PRN Reason: COUGH Heparin Sodium (Porcine) (Heparin Na) 5,000 unit SC BID [facility] Last Admin: 09/03/17 10:08 Dose: 5,000 units Hydroxyzine Pamoate (Vistaril) 25 mg PO Q6H PRN PRN PRN Reason: ANXIETY Vancomycin HCl 1,500 mg/ (Sodium Chloride) 530 mls @ 250 mls/hr IV Q24H JANETTE Vancomycin HCl 2,000 mg/ (Sodium Chloride) 540 mls @ 260 mls/hr IV Q24H [facility] Last Admin: 09/03/17 10:09 Dose: 260 mls/hr Potassium Chloride 40 meq/ (Sodium Chloride) 520 mls @ 130 mls/hr IV X1 ONE Stop: 09/03/17 15:14 Insulin Aspart (Novolog Flexpen (Bkc)) 0 units SC ACHS [facility] PRN Reason: Protocol Last Admin: 09/03/17 08:11 Dose: 2 u Insulin Aspart (Novolog Flexpen (Bkc)) 10 units SC TIDCM [facility] Last Admin: 09/03/17 08:11 Dose: 10 u Magnesium Hydroxide (Milk Of Magnesia) 30 ml PO DAILY PRN PRN Reason: Constipation Last Admin: 09/03/17 08:19 Dose: 30 ml Melatonin (Melatonin) 3 mg PO QHS [facility] Last Admin: 09/02/17 21:52 Dose: 3 mg Metoprolol Tartrate (Lopressor (Beta Ronald)) 25 mg PO BID [facility] Last Admin: 09/03/17 10:08 Dose: 25 mg Mirtazapine (Remeron) 15 mg PO QHS [facility] Last Admin: 09/02/17 21:53 Dose: 15 mg Morphine Sulfate (Ms Contin) 30 mg PO Q8 [facility] Last Admin: 09/03/17 05:10 Dose: 30 mg [facility]it[facility] ([facility]amin) [facility] Last Admin: 09/03/17 08:11 Dose: 1 tablet Nitroglycerin (Nitrostat) 0.4 mg SUBLINGUAL Q5M PRN PRN Reason: Chest Pain Ondansetron HCl (Zofran) 4 mg IV Q6H PRN PRN PRN Reason: NAUSEA/VOMITING Pantoprazole Sodium (Protonix) 20 mg PO DAILY [facility] Last Admin: 09/03/17 10:08 Dose: 20 mg Potassium Chloride (K-Dur) [facility] Last Admin: 09/03/17 08:11 Dose: 40 meq Pregabalin (Lyrica) 50 mg PO BID [facility] Last Admin: 09/03/17 10:08 Dose: 50 mg Senna (Senokot) 1 tablet PO BID [facility] Last Admin: 09/03/17 10:08 Dose: 1 tablet Sodium Biphosphate/Sodium Phosphate (Fleet Enema) 1 bottle RECTAL DAILY PRN PRN PRN Reason: Constipation Sodium Chloride () 5 - 30 ml IV UD PRN PRN Reason: SALINE FLUSH Last Admin: 09/03/17 10:03 Dose: 20 ml Tamsulosin HCl (Flomax) 0.4 mg PO QHS [facility] Last Admin: 09/02/17 21:50 Dose: 0.4 mg Thiamine HCl (Vitamin B1) [facility] Last Admin: 09/03/17 08:11 Dose: 100 mg Assessment/Plan Active and Suspected Problems (Last Updated 09/02/17 @ 15:40 by Wesley Senior DO) Cellulitis of left lower extremity without foot (Acute) Acute on chronic diastolic (congestive) heart failure (Acute) 1. Left lower extremity cellulitis But not evident on his right lower extremity with status post below the knee amputation that this is actually a cellulitis rather than lymphedematous changes associated with chronic edema. Patient is only on ceftezole and. I be concerned for staph versus strep. I do not feel that his leg is improved. May discontinue the cefazolin and start him on vancomycin. 2. Acute heart failure with preserved ejection fraction EF is a 55% from echocardiogram from August 08, 2017. Continue with IV Lasix, which change at over to twice daily from once daily as patient is still very volume overloaded. Will not start any beta-ronald in light of the acute heart failure exacerbation Hold off on CHAPO inhibitors and angiotensin receptor blockers in light of acute kidney injury, presumed Weight is down overall this patient still with diffuse lower extremity edema. 3. Acute kidney injury Creatinine is 1.91, which is improved from 2.45 yesterday. Patient's last creatinine was from February 2016 were is 1.23 at that time. May be related with urinary retention. Renal ultrasound was limited but show no obvious hydronephrosis. 4. Paroxysmal atrial fibrillation INR therapeutic. Continue to monitor. 5. DT prophylaxis: Patient is anticoagulated. Code Visit Inpatient E&M: 89228 Subs Hosp L2
--- NOTE | 2017-09-03 10:58 | PN_ITS ---
Patient Problems: Active and Suspected Problems (Last Updated 09/02/17 @ 15:40 by Wesley Senior DO ) Cellulitis of left lower extremity without foot (Acute) Acute on chronic diastolic (congestive) heart failure (Acute) Subjective: With left lower extremity erythema. Still short of breath but overall improved. Vitals/I&O's: Vital Signs Temp Pulse Resp BP Pulse Ox 37.1 C 113 H 18 141/77 H 94 09/03/17 08:32 09/03/17 10:08 09/03/17 08:32 09/03/17 08:32 09/03/17 08:32 Oxygen Flow Rate 2 Oxygen Delivery Method Nasal Cannula Weight: 139 kg Body Mass Index (BMI) 48.5 Finger Stick Blood Glucose 72 Intake and Output for Last 24 Hours 09/01/17 09/02/17 09/03/17 23:59 23:59 23:59 Intake Total 1947.6 / 1947.6 Output Total 6875 / 6875 1000 / 1000 Balance -4927.4 / -4927.4 -1000 / -1000 General: Alert, Cooperative, No apparent distress HEENT: Atraumatic, Normocephalic Neck: No Nodes, Thyroid Normal Size and Texture Lungs: Clear to auscultation, Normal air movement, No rhonchi, No wheeze Cardiovascular: Regular rate, Regular Rhythm, Normal S1, Normal S2, No murmurs Abdomen: Bowel Sounds Present, Soft, Non Tender, Non-Distended, No Hepato- splenomegaly Extremities: No Calf Tenderness, Edema Skin: - - Erythema on the medial leg from thigh down to the ankle. Musculoskeletal: No Tenderness to Palpation of Joints or Extremities, No Muscle Wasting Psych/Mental Status: Normal Affect, Appropriate Laboratory Results 09/02/17 12:20: POC Glucose 246 H 09/02/17 12:29: Urine Creatinine 19.80 09/02/17 12:29: U Random Total Protein 13.9 H 09/02/17 12:29: Urine Color Yellow, Urine Clarity Clear, Urine pH 6.0, Ur Specific [place] 1.010, Urine Protein 15 H, Urine Glucose (UA) Normal, Urine Ketones Negative, Urine Occult Blood Negative, Urine Nitrite Negative, Urine Bilirubin Negative, Urine Urobilinogen Normal, Ur Leukocyte Esterase Negative, Urine RBC 0 SEEN, Urine WBC 0 SEEN, Ur Squamous Epith Cells 0 SEEN, Urine Bacteria 0 SEEN, Urine Mucus 0 SEEN 09/02/17 17:21: POC Glucose 279 H 09/03/17 05:35: PT 20.6 H, INR 1.9 09/03/17 05:35: WBC 13.4 H, RBC 3.85 L, Hgb 9.3 L, Hct 30.8 L, MCV 80.0, MCH 24.2 L, MCHC 30.2 L, RDW 16.4 H, RDW Differential 46.8 H, Plt Count 318, MPV 9.6 09/03/17 05:35: Sodium 137, Potassium 2.9 L, Chloride 94 L, Carbon Dioxide 32.0 , BUN 57 H, Creatinine 1.91 H, Estim Creat Clear Calc 40.79, Est GFR (MDRD) Af Amer 47 L, Est GFR (MDRD) Non-Af 39 L, BUN/Creatinine Ratio 29.8 H, Glucose 301 H, Calcium 8.8, Phosphorus 3.6, Iron 21 L, Ferritin 53, Albumin 2.7 L 09/03/17 05:35: Hemoglobin A1c 10.0 H 09/03/17 06:48: POC Glucose 296 H Current Medications Hydrocodone Bitart/Acetaminophen ([place] 5mg-325mg) 1 tablet PO BID PRN PRN PRN Reason: BREAKTHROUGH PAIN (>4/10) Last Admin: 09/03/17 08:18 Dose: 1 tablet Al Hydroxide/Mg Hydroxide (Mylanta Ii) 30 ml PO Q4H PRN PRN PRN Reason: gi distress Albuterol/Ipratropium (Duoneb) 3 ml INHALATION Q4H PRN PRN PRN Reason: SOB &/OR WHEEZING Albuterol/Ipratropium (Duoneb) 3 ml INHALATION Q4HWA.RT [facility] Last Admin: 09/03/17 07:07 Dose: 3 ml Atorvastatin Calcium (Lipitor) 20 mg PO QHS [facility] Last Admin: 09/02/17 21:51 Dose: 20 mg Bisacodyl (Dulcolax) 10 mg RECTAL PRN PRN PRN Reason: Constipation Buspirone HCl (Buspar) 5 mg PO TID [facility] Last Admin: 09/03/17 05:10 Dose: 5 mg Cholecalciferol (Vitamin D) 2,000 unit PO DAILY [facility] Last Admin: 09/02/17 10:00 Dose: 2,000 unit Dextrose (D50w Syringe) 0 gm IV X1 PRN; Protocol PRN Reason: Hypoglycemia Duloxetine HCl (Cymbalta) 120 mg PO DAILY [facility] Last Admin: 09/03/17 10:08 Dose: 120 mg Furosemide (Lasix) 40 mg IV BID [facility] Last Admin: 09/03/17 10:03 Dose: 40 mg Glucagon () 1 mg IM .X1 PRN PRN Reason: Hypoglycemia Guaifenesin (Robitussin) 10 ml PO Q4H PRN PRN PRN Reason: COUGH Heparin Sodium (Porcine) (Heparin Na) 5,000 unit SC BID [facility] Last Admin: 09/03/17 10:08 Dose: 5,000 units Hydroxyzine Pamoate (Vistaril) 25 mg PO Q6H PRN PRN PRN Reason: ANXIETY Vancomycin HCl 1,500 mg/ (Sodium Chloride) 530 mls @ 250 mls/hr IV Q24H JANETTE Vancomycin HCl 2,000 mg/ (Sodium Chloride) 540 mls @ 260 mls/hr IV Q24H [facility] Last Admin: 09/03/17 10:09 Dose: 260 mls/hr Potassium Chloride 40 meq/ (Sodium Chloride) 520 mls @ 130 mls/hr IV X1 ONE Stop: 09/03/17 15:14 Insulin Aspart (Novolog Flexpen (Bkc)) 0 units SC ACHS [facility] PRN Reason: Protocol Last Admin: 09/03/17 08:11 Dose: 2 u Insulin Aspart (Novolog Flexpen (Bkc)) 10 units SC TIDCM [facility] Last Admin: 09/03/17 08:11 Dose: 10 u Magnesium Hydroxide (Milk Of Magnesia) 30 ml PO DAILY PRN PRN Reason: Constipation Last Admin: 09/03/17 08:19 Dose: 30 ml Melatonin (Melatonin) 3 mg PO QHS [facility] Last Admin: 09/02/17 21:52 Dose: 3 mg Metoprolol Tartrate (Lopressor (Beta Ronald)) 25 mg PO BID [facility] Last Admin: 09/03/17 10:08 Dose: 25 mg Mirtazapine (Remeron) 15 mg PO QHS [facility] Last Admin: 09/02/17 21:53 Dose: 15 mg Morphine Sulfate (Ms Contin) 30 mg PO Q8 [facility] Last Admin: 09/03/17 05:10 Dose: 30 mg [facility]it[facility] ([facility]) [facility] Last Admin: 09/03/17 08:11 Dose: 1 tablet Nitroglycerin (Nitrostat) 0.4 mg SUBLINGUAL Q5M PRN PRN Reason: Chest Pain Ondansetron HCl (Zofran) 4 mg IV Q6H PRN PRN PRN Reason: NAUSEA/VOMITING Pantoprazole Sodium (Protonix) 20 mg PO DAILY [facility] Last Admin: 09/03/17 10:08 Dose: 20 mg Potassium Chloride (K-Dur) [facility] Last Admin: 09/03/17 08:11 Dose: 40 meq Pregabalin (Lyrica) 50 mg PO BID [facility] Last Admin: 09/03/17 10:08 Dose: 50 mg Senna (Senokot) 1 tablet PO BID [facility] Last Admin: 09/03/17 10:08 Dose: 1 tablet Sodium Biphosphate/Sodium Phosphate (Fleet Enema) 1 bottle RECTAL DAILY PRN PRN PRN Reason: Constipation Sodium Chloride () 5 - 30 ml IV UD PRN PRN Reason: SALINE FLUSH Last Admin: 09/03/17 10:03 Dose: 20 ml Tamsulosin HCl (Flomax) 0.4 mg PO QHS [facility] Last Admin: 09/02/17 21:50 Dose: 0.4 mg Thiamine HCl (Vitamin B1) [facility] Last Admin: 09/03/17 08:11 Dose: 100 mg Assessment/Plan Active and Suspected Problems (Last Updated 09/02/17 @ 15:40 by Wesley Senior DO ) Cellulitis of left lower extremity without foot (Acute) Acute on chronic diastolic (congestive) heart failure (Acute) 1. Left lower extremity cellulitis * But not evident on his right lower extremity with status post below the knee amputation that this is actually a cellulitis rather than lymphedematous changes associated with chronic edema. * Patient is only on ceftezole and. I be concerned for staph versus strep. I do not feel that his leg is improved. May discontinue the cefazolin and start him on vancomycin. 2. Acute heart failure with preserved ejection fraction * EF is a 55% from echocardiogram from August 08, 2017. * Continue with IV Lasix, which change at over to twice daily from once daily as patient is still very volume overloaded. * Will not start any beta-ronald in light of the acute heart failure exacerbation * Hold off on CHAPO inhibitors and angiotensin receptor blockers in light of acute kidney injury, presumed * Weight is down overall this patient still with diffuse lower extremity edema. 3. Acute kidney injury * Creatinine is 1.91, which is improved from 2.45 yesterday. Patient's last creatinine was from February 2016 were is 1.23 at that time. * May be related with urinary retention. * Renal ultrasound was limited but show no obvious hydronephrosis. 4. Paroxysmal atrial fibrillation * INR therapeutic. Continue to monitor. 5. DT prophylaxis: Patient is anticoagulated. Code Visit Inpatient E&M: 84078 Subs Hosp L2
[2017-09-03 12:11] LABS: Bedside Glucose 298 mg/dL (70-110)
[2017-09-03 12:56] LABS: Magnesium 2.3 mg/dL (1.6-2.6)
[2017-09-03 16:16] LABS: Bedside Glucose 315 mg/dL (70-110)
[2017-09-03] MEDS: MELATONIN 3 MG TABLET PO (21:10)
[2017-09-03] MEDS: Tamsulosin HCl 0.4 MG Capsule PO (21:10)
[2017-09-03] MEDS: Atorvastatin Calcium 20 MG Tablet PO (21:10)
[2017-09-03] MEDS: Mirtazapine 15 MG Tablet PO (21:13)
[2017-09-03 22:30] LABS: Bedside Glucose 337 mg/dL (70-110)
[2017-09-04] VITALS (17 sets, daily range): BP systolic 103–155; BP diastolic 46–92; PULSE 100–117; RESP 16–18; TEMP 36.4–37.1; O2SAT 92–97
--- NOTE | 2017-09-04 00:54 | CPS ---
pt refused to wear bipap
[2017-09-04 05:56] LABS: Hematocrit 33.7 % (40-54); Hemoglobin 9.9 g/dl (13.0-16.5); International Normalized Ratio 1.7; Mean Corp Hgb Conc 29.4 g/gl (32-36); Mean Corpuscular Hgb 23.9 pg (27.0-32.0); Mean Corpuscular Volume 81.4 fL (80-94); Mean Platelet Vol. 9.6 fl (6.2-12.0); Platelet Count 298 K/mm3 (150-450); Prothrombin Time (Protime)PT. 18.9 SECONDS (11.7-14.9); RBC Distribution Width CV 16.6 % (11.6-14.6); RBC Distribution Width SD 48.9 fl (35.1-43.9); Red Blood Count 4.14 M/mm3 (4.6-6.2); White Blood Count 14.6 K/mm3 (4.4-11.0)
[2017-09-04 06:13] LABS: Albumin, Serum 2.8 g/dL (3.2-5.0); BUN 40 mg/dL (7-18); BUN/Creat Ratio 25.5 RATIO (10-20); Calcium,Total 9.4 mg/dL (8.5-10.1); Chloride 95 mmol/L (98-107); Creatinine, Serum 1.57 mg/dL (0.70-1.30); EST Glomerular Filtration Rate 48 mL/min (>60); Est Glom Filt Rate - Afr Amer 59 mL/min (>60); Estimated Creatinine Clearance 49.62 ml/min; Glucose 322 mg/dL (74-106); Phosphorus 2.6 mg/dL (2.5-4.9); Potassium 3.3 mmol/L (3.5-5.1); Sodium Level 138 mmol/L (136-145)
[2017-09-04 06:21] LABS: Scan Indicated on CBC? Y/N NO
[2017-09-04 07:01] LABS: Bedside Glucose 280 mg/dL (70-110)
[2017-09-04] MEDS: Ipratropium/Albuterol Sulfate 3 ML AMPUL.NEB INHALATION ×4 (07:19→19:08)
[2017-09-04] MEDS: Multivitamins,Therapeutic Tablet 1 TABLET PO (08:31)
[2017-09-04] MEDS: Thiamine Hydrochloride 100 MG Tablet PO (08:32)
[2017-09-04] MEDS: Metoprolol Tartrate 25 MG Tablet PO ×2 (08:33→21:41)
[2017-09-04] MEDS: DULoxetine Hcl 60 MG Capsule 120 MG PO (08:33)
[2017-09-04] MEDS: HYDROcodone Bitartrate/Apap 5/325 Tablet PO (08:34)
[2017-09-04] MEDS: Pantoprazole Sodium 20 MG Tablet PO (08:34)
[2017-09-04] MEDS: Senna Tablet 1 TABLET PO ×2 (08:34→21:42)
[2017-09-04] MEDS: Pregabalin 50 MG Capsule PO ×2 (08:44→21:39)
--- NOTE | 2017-09-04 08:48 | PN.RENAL_ITS ---
Patient Problems: Active and Suspected Problems (Last Updated 09/02/17 @ 15:40 by Wesley Senior DO ) Cellulitis of left lower extremity without foot (Acute) Acute on chronic diastolic (congestive) heart failure (Acute) Subjective: Still with edema. Urine output improving with renal function. Will increase Lasix dose for continued anasarca. - Physical Exam General: Alert, Oriented x3 Lungs: Clear to auscultation, Diminished Cardiovascular: Regular rate Abdomen: Bowel Sounds Present, Distended, Obese Extremities: [facility]: - - Left lower extremity cellulitis Musculoskeletal: No Muscle Wasting Neurological: Cranial nerves II-XII grossly intact, - - Twitching upper extremities Psych/Mental Status: Normal Affect, Appropriate, Alert and oriented to time, place, person, mood and affect Vital Signs Temp Pulse Resp BP Pulse Ox 98.7 F 111 H 18 103/56 L 93 09/04/17 08:11 09/04/17 08:11 09/04/17 08:11 09/04/17 08:11 09/04/17 08:11 Oxygen Flow Rate 3 Oxygen Delivery Method Nasal Cannula Weight: 133.8 kg Body Mass Index (BMI) 48.5 Finger Stick Blood Glucose 72 Intake and Output for Last 24 Hours 09/02/17 09/03/17 09/04/17 23:59 23:59 23:59 Intake Total 1947.6 / 1947.6 1784 / 1784 Output Total 6875 / 6875 6150 / 6150 1200 / 1200 Balance -4927.4 / -4927.4 -4366 / -4366 -1200 / -1200 Laboratory Tests Past 24 Hrs 09/03/17 09/04/17 09/04/17 05:35 05:16 05:16 WBC 14.6 H RBC 4.14 L Hgb 9.9 L Hct 33.7 L MCV 81.4 MCH 23.9 L MCHC 29.4 L RDW 16.6 H RDW Differential 48.9 H Plt Count 298 MPV 9.6 PT 18.9 H INR 1.7 Sodium Potassium Chloride Carbon Dioxide BUN Creatinine Estim Creat Clear Calc Est GFR (MDRD) Af Amer Est GFR (MDRD) Non-Af BUN/Creatinine Ratio Glucose Calcium Phosphorus Magnesium 2.3 Albumin 09/04/17 05:16 WBC RBC Hgb Hct MCV MCH MCHC RDW RDW Differential Plt Count MPV PT INR Sodium 138 Potassium 3.3 L Chloride 95 L Carbon Dioxide 33.0 H BUN 40 H Creatinine 1.57 H Estim Creat Clear Calc 49.62 Est GFR (MDRD) Af Amer 59 L Est GFR (MDRD) Non-Af 48 L BUN/Creatinine Ratio 25.5 H Glucose 322 H Calcium 9.4 Phosphorus 2.6 Magnesium Albumin 2.8 L POC Glucose 09/04/17 09/03/17 09/03/17 06:54 21:04 16:09 POC Glucose 280 H 337 H 315 H 09/03/17 11:59 POC Glucose 298 H Assessment/Plan Active and Suspected Problems (Last Updated 09/02/17 @ 15:40 by Wesley Senior DO ) Cellulitis of left lower extremity without foot (Acute) Acute on chronic diastolic (congestive) heart failure (Acute) 1. 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 Baseline creatinine 1.05 in February 2016 creatinine 2.45 on admission improved to 1.5 today after Bright catheter inserted. Underlying diabetic nephropathy with urine protein creatinine ratio of 700 mg/gram creatinine 2. History of BPH on Flomax at [facility]. Continue with Bright 3. Severe morbid obesity sleep apnea on CPAP home. Will need to set him up for CPAP. Consider pulmonary consult. 4. DM Type II s/p rt BKA, A1c 10.0 5. Hypertension with stable blood pressures 6. CAD s/p PCI 7. acute on chronic diastolic HF, anasarca. Increase Lasix 80 mg twice a day. 8. Hypokalemia replace as needed 9. Anemia iron deficient. IV iron
[2017-09-04] MEDS: 0.9% NaCl Peripheral Flush Adult/Peds IV ×3 (08:52→17:52)
[2017-09-04] MEDS: Furosemide 100 MG/10 ML Vial 80 MG IV ×2 (08:56→17:52)
--- NOTE | 2017-09-04 09:09 | PCM.PN.HOSP ---
Patient Problems: Active and Suspected Problems (Last Updated 09/02/17 @ 15:40 by Wesley Senior DO) Cellulitis of left lower extremity without foot (Acute) Acute on chronic diastolic (congestive) heart failure (Acute) Subjective: Still with the left leg pain and erythema. Vitals/I&O's: Vital Signs Temp Pulse Resp BP Pulse Ox 37.1 C 110 H 18 103/56 L 93 09/04/17 08:11 09/04/17 08:33 09/04/17 08:11 09/04/17 08:11 09/04/17 08:11 Oxygen Flow Rate 3 Oxygen Delivery Method Nasal Cannula Weight: 133.8 kg Body Mass Index (BMI) 48.5 Finger Stick Blood Glucose 72 Intake and Output for Last 24 Hours 09/02/17 09/03/17 09/04/17 23:59 23:59 23:59 Intake Total 1947.6 / 1947.6 1784 / 1784 Output Total 6875 / 6875 6150 / 6150 1200 / 1200 Balance -4927.4 / -4927.4 -4366 / -4366 -1200 / -1200 General: Alert, Cooperative, No apparent distress, Well developed, Well nourished HEENT: Atraumatic, Normocephalic Neck: No Nodes, Thyroid Normal Size and Texture Lungs: Clear to auscultation, Normal air movement, No rhonchi, No wheeze Cardiovascular: Regular rate, Regular Rhythm, Normal S1, Normal S2, No murmurs Abdomen: Bowel Sounds Present, Soft, Non Tender, Non-Distended, Obese Extremities: - - Still with left lower extremity edema. Skin: - - Still with erythema of the left lower extremity from the groin down to the ankle. Still with warmth and increased tender to palpation. Musculoskeletal: No Muscle Wasting Psych/Mental Status: Normal Affect, Appropriate Laboratory Results 09/03/17 05:35: Magnesium 2.3 09/03/17 11:59: POC Glucose 298 H 09/03/17 16:09: POC Glucose 315 H 09/03/17 21:04: POC Glucose 337 H 09/04/17 05:16: PT 18.9 H, INR 1.7 09/04/17 05:16: WBC 14.6 H, RBC 4.14 L, Hgb 9.9 L, Hct 33.7 L, MCV 81.4, MCH 23.9 L, MCHC 29.4 L, RDW 16.6 H, RDW Differential 48.9 H, Plt Count 298, MPV 9.6 09/04/17 05:16: Sodium 138, Potassium 3.3 L, Chloride 95 L, Carbon Dioxide 33.0 H, BUN 40 H, Creatinine 1.57 H, Estim Creat Clear Calc 49.62, Est GFR (MDRD) Af Amer 59 L, Est GFR (MDRD) Non-Af 48 L, BUN/Creatinine Ratio 25.5 H, Glucose 322 H, Calcium 9.4, Phosphorus 2.6, Albumin 2.8 L 09/04/17 06:54: POC Glucose 280 H Current Medications Hydrocodone Bitart/Acetaminophen ([place] 5mg-325mg) 1 tablet PO BID PRN PRN PRN Reason: BREAKTHROUGH PAIN (>4/10) Last Admin: 09/04/17 08:34 Dose: 1 tablet Al Hydroxide/Mg Hydroxide (Mylanta Ii) 30 ml PO Q4H PRN PRN PRN Reason: gi distress Albuterol/Ipratropium (Duoneb) 3 ml INHALATION Q4H PRN PRN PRN Reason: SOB &/OR WHEEZING Albuterol/Ipratropium (Duoneb) 3 ml INHALATION Q4HWA.RT [facility] Last Admin: 09/04/17 07:19 Dose: 3 ml Atorvastatin Calcium (Lipitor) 20 mg PO QHS [facility] Last Admin: 09/03/17 21:10 Dose: 20 mg Bisacodyl (Dulcolax) 10 mg RECTAL PRN PRN PRN Reason: Constipation Buspirone HCl (Buspar) 5 mg PO TID [facility] Last Admin: 09/04/17 05:14 Dose: 5 mg Cholecalciferol (Vitamin D) 2,000 unit PO DAILY [facility] Last Admin: 09/04/17 08:34 Dose: 2,000 unit Dextrose (D50w Syringe) 0 gm IV X1 PRN; Protocol PRN Reason: Hypoglycemia Duloxetine HCl (Cymbalta) 120 mg PO DAILY [facility] Last Admin: 09/04/17 08:33 Dose: 120 mg Furosemide (Lasix) 80 mg IV BID@1000,1800 [facility] Glucagon () 1 mg IM .X1 PRN PRN Reason: Hypoglycemia Guaifenesin (Robitussin) 10 ml PO Q4H PRN PRN PRN Reason: COUGH Heparin Sodium (Porcine) (Heparin Na) 5,000 unit SC BID [facility] Last Admin: 09/04/17 08:44 Dose: 5,000 units Hydroxyzine Pamoate (Vistaril) 25 mg PO Q6H PRN PRN PRN Reason: ANXIETY Vancomycin HCl 1,500 mg/ (Sodium Chloride) 530 mls @ 250 mls/hr IV Q24H [facility] Insulin Aspart (Novolog Flexpen (Bkc)) 0 units SC ACHS [facility] PRN Reason: Protocol Last Admin: 09/04/17 08:30 Dose: 2 u Insulin Aspart (Novolog Flexpen (Bkc)) 10 units SC TIDCM [facility] Last Admin: 09/04/17 08:31 Dose: 12 u Magnesium Hydroxide (Milk Of Magnesia) 30 ml PO DAILY PRN PRN Reason: Constipation Last Admin: 09/03/17 08:19 Dose: 30 ml Melatonin (Melatonin) 3 mg PO QHS [facility] Last Admin: 09/03/17 21:10 Dose: 3 mg Metoprolol Tartrate (Lopressor (Beta Ronald)) 25 mg PO BID [facility] Last Admin: 09/04/17 08:33 Dose: 25 mg Mirtazapine (Remeron) 15 mg PO QHS [facility] Last Admin: 09/03/17 21:13 Dose: 15 mg Morphine Sulfate (Ms Contin) 30 mg PO Q8 [facility] Last Admin: 09/04/17 05:14 Dose: 30 mg [facility]ivit[facility] ([facility]amin) [facility] Last Admin: 09/04/17 08:31 Dose: 1 tablet Nitroglycerin (Nitrostat) 0.4 mg SUBLINGUAL Q5M PRN PRN Reason: Chest Pain Ondansetron HCl (Zofran) 4 mg IV Q6H PRN PRN PRN Reason: NAUSEA/VOMITING Pantoprazole Sodium (Protonix) 20 mg PO DAILY [facility] Last Admin: 09/04/17 08:34 Dose: 20 mg Potassium Chloride (K-Dur) [facility] Last Admin: 09/04/17 08:31 Dose: 40 meq Pregabalin (Lyrica) 50 mg PO BID [facility] Last Admin: 09/04/17 08:44 Dose: 50 mg Senna (Senokot) 1 tablet PO BID [facility] Last Admin: 09/04/17 08:34 Dose: 1 tablet Sodium Biphosphate/Sodium Phosphate (Fleet Enema) 1 bottle RECTAL DAILY PRN PRN PRN Reason: Constipation Sodium Chloride () 5 - 30 ml IV UD PRN PRN Reason: SALINE FLUSH Last Admin: 09/04/17 08:52 Dose: 10 ml Tamsulosin HCl (Flomax) 0.4 mg PO QHS [facility] Last Admin: 09/03/17 21:10 Dose: 0.4 mg Thiamine HCl (Vitamin B1) 100 mg PO DAILYCM [facility] Last Admin: 09/04/17 08:32 Dose: 100 mg Assessment/Plan Active and Suspected Problems (Last Updated 09/02/17 @ 15:40 by Wesley Senior DO) Cellulitis of left lower extremity without foot (Acute) Acute on chronic diastolic (congestive) heart failure (Acute) 1. Left lower extremity cellulitis But not evident on his right lower extremity with status post below the knee amputation that this is actually a cellulitis rather than lymphedematous changes associated with chronic edema. Essentially no better with the IV vancomycin. Still not clear if this is actual cellulitis versus venous stasis dermatitis but favoring the former. But they given patient's increased pain I would be concerned for a deeper infection such as necrotizing fasciitis. Will check a CT scan without contrast to better evaluate. If CT is negative then would proceed with a duplex to evaluate for DVT. Weight is overall down but. His dry weight is around 124 kg. Therefore will continue with the IV Lasix for now. 2. Acute heart failure with preserved ejection fraction EF is a 55% from echocardiogram from August 08, 2017. Continue with IV Lasix, which change at over to twice daily from once daily as patient is still very volume overloaded. Will not start any beta-ronald in light of the acute heart failure exacerbation Hold off on CHAPO inhibitors and angiotensin receptor blockers in light of acute kidney injury, presumed Weight is down overall this patient still with diffuse lower extremity edema. 3. Acute kidney injury improving Creatinine is 1.57. Patient's last creatinine was from February 2016 were is 1.23 at that time. May be related with urinary retention. Renal ultrasound was limited but show no obvious hydronephrosis. 4. Paroxysmal atrial fibrillation INR subtherapeutic. Continue to monitor. 5. DT prophylaxis: Patient is anticoagulated. Code Visit Inpatient E&M: 76276 Subs Hosp L2
--- NOTE | 2017-09-04 09:14 | PN_ITS ---
Patient Problems: Active and Suspected Problems (Last Updated 09/02/17 @ 15:40 by Wesley Senior DO ) Cellulitis of left lower extremity without foot (Acute) Acute on chronic diastolic (congestive) heart failure (Acute) Subjective: Still with the left leg pain and erythema. Vitals/I&O's: Vital Signs Temp Pulse Resp BP Pulse Ox 37.1 C 110 H 18 103/56 L 93 09/04/17 08:11 09/04/17 08:33 09/04/17 08:11 09/04/17 08:11 09/04/17 08:11 Oxygen Flow Rate 3 Oxygen Delivery Method Nasal Cannula Weight: 133.8 kg Body Mass Index (BMI) 48.5 Finger Stick Blood Glucose 72 Intake and Output for Last 24 Hours 09/02/17 09/03/17 09/04/17 23:59 23:59 23:59 Intake Total 1947.6 / 1947.6 1784 / 1784 Output Total 6875 / 6875 6150 / 6150 1200 / 1200 Balance -4927.4 / -4927.4 -4366 / -4366 -1200 / -1200 General: Alert, Cooperative, No apparent distress, Well developed, Well nourished HEENT: Atraumatic, Normocephalic Neck: No Nodes, Thyroid Normal Size and Texture Lungs: Clear to auscultation, Normal air movement, No rhonchi, No wheeze Cardiovascular: Regular rate, Regular Rhythm, Normal S1, Normal S2, No murmurs Abdomen: Bowel Sounds Present, Soft, Non Tender, Non-Distended, Obese Extremities: - - Still with left lower extremity edema. Skin: - - Still with erythema of the left lower extremity from the groin down to the ankle. Still with warmth and increased tender to palpation. Musculoskeletal: No Muscle Wasting Psych/Mental Status: Normal Affect, Appropriate Laboratory Results 09/03/17 05:35: Magnesium 2.3 09/03/17 11:59: POC Glucose 298 H 09/03/17 16:09: POC Glucose 315 H 09/03/17 21:04: POC Glucose 337 H 09/04/17 05:16: PT 18.9 H, INR 1.7 09/04/17 05:16: WBC 14.6 H, RBC 4.14 L, Hgb 9.9 L, Hct 33.7 L, MCV 81.4, MCH 23.9 L, MCHC 29.4 L, RDW 16.6 H, RDW Differential 48.9 H, Plt Count 298, MPV 9.6 09/04/17 05:16: Sodium 138, Potassium 3.3 L, Chloride 95 L, Carbon Dioxide 33.0 H, BUN 40 H, Creatinine 1.57 H, Estim Creat Clear Calc 49.62, Est GFR (MDRD) Af Amer 59 L, Est GFR (MDRD) Non-Af 48 L, BUN/Creatinine Ratio 25.5 H, Glucose 322 H, Calcium 9.4, Phosphorus 2.6, Albumin 2.8 L 09/04/17 06:54: POC Glucose 280 H Current Medications Hydrocodone Bitart/Acetaminophen ([place] 5mg-325mg) 1 tablet PO BID PRN PRN PRN Reason: BREAKTHROUGH PAIN (>4/10) Last Admin: 09/04/17 08:34 Dose: 1 tablet Al Hydroxide/Mg Hydroxide (Mylanta Ii) 30 ml PO Q4H PRN PRN PRN Reason: gi distress Albuterol/Ipratropium (Duoneb) 3 ml INHALATION Q4H PRN PRN PRN Reason: SOB &/OR WHEEZING Albuterol/Ipratropium (Duoneb) 3 ml INHALATION Q4HWA.RT [facility] Last Admin: 09/04/17 07:19 Dose: 3 ml Atorvastatin Calcium (Lipitor) 20 mg PO QHS [facility] Last Admin: 09/03/17 21:10 Dose: 20 mg Bisacodyl (Dulcolax) 10 mg RECTAL PRN PRN PRN Reason: Constipation Buspirone HCl (Buspar) 5 mg PO TID [facility] Last Admin: 09/04/17 05:14 Dose: 5 mg Cholecalciferol (Vitamin D) 2,000 unit PO DAILY [facility] Last Admin: 09/04/17 08:34 Dose: 2,000 unit Dextrose (D50w Syringe) 0 gm IV X1 PRN; Protocol PRN Reason: Hypoglycemia Duloxetine HCl (Cymbalta) 120 mg PO DAILY [facility] Last Admin: 09/04/17 08:33 Dose: 120 mg Furosemide (Lasix) 80 mg IV BID@1000,1800 [facility] Glucagon () 1 mg IM .X1 PRN PRN Reason: Hypoglycemia Guaifenesin (Robitussin) 10 ml PO Q4H PRN PRN PRN Reason: COUGH Heparin Sodium (Porcine) (Heparin Na) 5,000 unit SC BID [facility] Last Admin: 09/04/17 08:44 Dose: 5,000 units Hydroxyzine Pamoate (Vistaril) 25 mg PO Q6H PRN PRN PRN Reason: ANXIETY Vancomycin HCl 1,500 mg/ (Sodium Chloride) 530 mls @ 250 mls/hr IV Q24H [facility] Insulin Aspart (Novolog Flexpen (Bkc)) 0 units SC ACHS [facility] PRN Reason: Protocol Last Admin: 09/04/17 08:30 Dose: 2 u Insulin Aspart (Novolog Flexpen (Bkc)) 10 units SC TIDCM [facility] Last Admin: 09/04/17 08:31 Dose: 12 u Magnesium Hydroxide (Milk Of Magnesia) 30 ml PO DAILY PRN PRN Reason: Constipation Last Admin: 09/03/17 08:19 Dose: 30 ml Melatonin (Melatonin) 3 mg PO QHS [facility] Last Admin: 09/03/17 21:10 Dose: 3 mg Metoprolol Tartrate (Lopressor (Beta Ronald)) 25 mg PO BID [facility] Last Admin: 09/04/17 08:33 Dose: 25 mg Mirtazapine (Remeron) 15 mg PO QHS [facility] Last Admin: 09/03/17 21:13 Dose: 15 mg Morphine Sulfate (Ms Contin) 30 mg PO Q8 [facility] Last Admin: 09/04/17 05:14 Dose: 30 mg [facility]ivit[facility] ([facility]) [facility] Last Admin: 09/04/17 08:31 Dose: 1 tablet Nitroglycerin (Nitrostat) 0.4 mg SUBLINGUAL Q5M PRN PRN Reason: Chest Pain Ondansetron HCl (Zofran) 4 mg IV Q6H PRN PRN PRN Reason: NAUSEA/VOMITING Pantoprazole Sodium (Protonix) 20 mg PO DAILY [facility] Last Admin: 09/04/17 08:34 Dose: 20 mg Potassium Chloride (K-Dur) [facility] Last Admin: 09/04/17 08:31 Dose: 40 meq Pregabalin (Lyrica) 50 mg PO BID [facility] Last Admin: 09/04/17 08:44 Dose: 50 mg Senna (Senokot) 1 tablet PO BID [facility] Last Admin: 09/04/17 08:34 Dose: 1 tablet Sodium Biphosphate/Sodium Phosphate (Fleet Enema) 1 bottle RECTAL DAILY PRN PRN PRN Reason: Constipation Sodium Chloride () 5 - 30 ml IV UD PRN PRN Reason: SALINE FLUSH Last Admin: 09/04/17 08:52 Dose: 10 ml Tamsulosin HCl (Flomax) 0.4 mg PO QHS [facility] Last Admin: 09/03/17 21:10 Dose: 0.4 mg Thiamine HCl (Vitamin B1) 100 mg PO DAILYCM [facility] Last Admin: 09/04/17 08:32 Dose: 100 mg Assessment/Plan Active and Suspected Problems (Last Updated 09/02/17 @ 15:40 by Wesley Senior DO ) Cellulitis of left lower extremity without foot (Acute) Acute on chronic diastolic (congestive) heart failure (Acute) 1. Left lower extremity cellulitis * But not evident on his right lower extremity with status post below the knee amputation that this is actually a cellulitis rather than lymphedematous changes associated with chronic edema. * Essentially no better with the IV vancomycin. Still not clear if this is actual cellulitis versus venous stasis dermatitis but favoring the former. But they given patient's increased pain I would be concerned for a deeper infection such as necrotizing fasciitis. Will check a CT scan without contrast to better evaluate. If CT is negative then would proceed with a duplex to evaluate for DVT. * Weight is overall down but. His dry weight is around 124 kg. Therefore will continue with the IV Lasix for now. 2. Acute heart failure with preserved ejection fraction * EF is a 55% from echocardiogram from August 08, 2017. * Continue with IV Lasix, which change at over to twice daily from once daily as patient is still very volume overloaded. * Will not start any beta-ronald in light of the acute heart failure exacerbation * Hold off on CHAPO inhibitors and angiotensin receptor blockers in light of acute kidney injury, presumed * Weight is down overall this patient still with diffuse lower extremity edema. 3. Acute kidney injury * improving * Creatinine is 1.57. Patient's last creatinine was from February 2016 were is 1.23 at that time. * May be related with urinary retention. * Renal ultrasound was limited but show no obvious hydronephrosis. 4. Paroxysmal atrial fibrillation * INR subtherapeutic. Continue to monitor. 5. DT prophylaxis: Patient is anticoagulated. Code Visit Inpatient E&M: 32939 Subs Hosp L2
--- NOTE | 2017-09-04 09:14 | CT_ITS ---
STUDY: CT LEFT LOWER EXTREMITY WITHOUT CONTRAST REASON FOR EXAM: Left leg pain and swelling with cellulitis, concern for necrotizing fasciitis. TECHNIQUE: Transaxial CT imaging of the femur was performed. Sagittal and coronal images were reconstructed. Individualized dose optimization techniques were used for this CT. COMPARISON: None. FINDINGS: Normal femur. Normal tibia. There is chronic healed fracture deformity of the proximal fibular diaphysis (sagittal reconstructions 71-77). There is left hip arthrosis with joint space narrowing at the posterior aspect (sagittal reconstruction 48). There is arthrosis of the medial femorotibial compartment of the left knee with joint space narrowing (coronal reconstructions 46). There is diffuse edema in the subcutis adipose space of the left hemipelvis, left thigh, lower leg and left ankle with fluid along the myocutaneous fascial planes, particularly of the posterior lateral aspect of the distal left thigh (axial images 1-377). There is no discrete drainable fluid collection. There is no soft tissue gas. There is vascular calcification CT/Extremity Lower without Contra IMPRESSION: Diffuse edema in the subcutis adipose space of the left lower extremity and fluid along the myocutaneous fascial planes without demonstrated gas in the soft tissues or drainable fluid collection. Electronically Signed: Jorge Heath MD at 10:36 EST Tel , Service support ,
[2017-09-04 11:56] LABS: Bedside Glucose 364 mg/dL (70-110)
--- NOTE | 2017-09-04 14:21 | VDLE_ITS ---
Reason For Study: LEG PAIN RIGHT LEFT CFV is compressible, spontaneous, phasic, GSV is normal. competent and demonstrates normal CFV is compressible, spontaneous, phasic, augmentation. competent, and demonstrates normal Procedure augmentation. Exam performed portable in patient room. FV is compressible, spontaneous, phasic, Technically difficult due to body habitus competent and demonstrates normal and severe edema. augmentation. A preliminary report was called and/or faxed POP V is compressible, spontaneous, phasic, to PCU. competent and demonstrates normal augmentation. T/P Trunk is compressible. PTV is compressible. LT PerV is compressible. Interpretation Summary Deep veins of the left lower extremity are patent and compressible segmentally. There is no evidence of left lower extremity deep vein thrombosis. Valvular competence appears intact within the proximal deep venous system on the left . The left greater saphenous vein appears patent and compressible segmentally. Ordering Physician: Wesley Senior Referring Physician: Yoni Marques Performed By: Digna Camp RVT
--- NOTE | 2017-09-04 14:40 | RAD_ITS ---
STUDY: X-RAY - ABDOMEN/PELVIS REASON FOR EXAM: Male, 56 years old. CHF TECHNIQUE: AP supine views of the abdomen and pelvis. COMPARISON: None. FINDINGS: Normal visualized lung bases. There is an unremarkable bowel gas pattern. No dilated small bowel. There is abundant stool. There is no demonstrated free abdominal air. The visualized liver, spleen and kidneys are grossly normal in size and morphology. There are calcified phleboliths in the pelvis. Normal visualized osseous structures. RAD/Abdomen Single View (Portable) IMPRESSION: No obstruction. Abundant stool. Electronically Signed: Norman Russell MD at 18:22 EST , Service support ,
--- NOTE | 2017-09-04 17:31 | NURSING ---
Patient has rested quietly this afternoon. No further complaints of RLQ pain.
[2017-09-04 18:31] LABS: Bedside Glucose 313 mg/dL (70-110)
--- NOTE | 2017-09-04 18:45 | PCM.PN.ORT ---
Subjective: Patient is a 56-year-old male who was admitted for cellulitis of the left lower extremity. He has been receiving antibiotics on Saturday he was changed to Vanco yesterday. Ortho-Est consulted? For necrotizing fasciitis. CT scan does not show any catheters or so with consult for further evaluation and possible surgical management. Patient states he has pain in his leg. Open sores on his toes and has resultant cellulitis of his leg. Patient was changed to Vanco yesterday and put on Zosyn this afternoon. Patient states he is able to move his toes and his foot and ankle and leg with minimal difficulty. Denies fevers chills or worsening leg pain in the last 4 hours. - Physical Exam General: Alert, Oriented x3, Cooperative HEENT: Atraumatic, PERRLA, EOMI, Normocephalic Neck: Supple, No JVD, Negative Carotid Bruits Lungs: Clear to auscultation, Normal air movement Cardiovascular: Regular rate, No murmurs Abdomen: Bowel Sounds Present, Soft, Non Tender Extremities: No edema, Capillary Refill Less than 3 Seconds Skin: No rashes, No breakdown Musculoskeletal: No Tenderness to Palpation of Joints or Extremities, Tenderness Neurological: Cranial nerves II-XII grossly intact Psych/Mental Status: Normal Affect, Appropriate Vital Signs Temp Pulse Resp BP Pulse Ox 97.5 F L 108 H 17 144/92 H 96 09/04/17 15:11 09/04/17 16:12 09/04/17 15:11 09/04/17 15:11 09/04/17 15:11 Oxygen Flow Rate 3 Oxygen Delivery Method Nasal Cannula Weight: 294 lb 15.656 oz Body Mass Index (BMI) 48.5 Finger Stick Blood Glucose 72 Intake and Output for Last 24 Hours 09/02/17 09/03/17 09/04/17 23:59 23:59 23:59 Intake Total 1947.6 / 1947.6 1784 / 1784 1326 / 1326 Output Total 6875 / 6875 6150 / 6150 4400 / 4400 Balance -4927.4 / -4927.4 -4366 / -4366 -3074 / -3074 Laboratory Tests Past 24 Hrs 09/04/17 09/04/17 09/04/17 05:16 05:16 05:16 WBC 14.6 H RBC 4.14 L Hgb 9.9 L Hct 33.7 L MCV 81.4 MCH 23.9 L MCHC 29.4 L RDW 16.6 H RDW Differential 48.9 H Plt Count 298 MPV 9.6 PT 18.9 H INR 1.7 Sodium 138 Potassium 3.3 L Chloride 95 L Carbon Dioxide 33.0 H BUN 40 H Creatinine 1.57 H Estim Creat Clear Calc 49.62 Est GFR (MDRD) Af Amer 59 L Est GFR (MDRD) Non-Af 48 L BUN/Creatinine Ratio 25.5 H Glucose 322 H Calcium 9.4 Phosphorus 2.6 Albumin 2.8 L POC Glucose 09/04/17 09/04/17 09/04/17 17:44 11:44 06:54 POC Glucose 313 H 364 H 280 H 09/03/17 21:04 POC Glucose 337 H Assessment/Plan Patient has cellulitis of the left lower extremity most likely due to open wounds of his foot and chronic comorbidities, cellulitis resolves with elevation of his left lower extremity, the positive for cellulitis negative for gas Ordered wraps for his lower extremity to decrease venous congestion Saw him this afternoon his pain is less than it was this morning this afternoon this evening if this is necrotizing fasciitis his pain would be increasing. Again upon elevating his leg and his cellulitis resolved he is able to move his toes his ankle his knee with limited pain. Discussed with Dr. Henir Barclay if there is increased concern he really was developing necrotizing fasciitis as a CT was essentially negative for neck fast Saul show cellulitis the next step would be de to possibly do an MRI versus taking him urgently to the OR however at this point patient does not need to be taken to the OR there are no abscesses no concern at this point for necrotizing fasciitis Discussed with nurse above concerns. Patient was literally asleep for the last 4 hours and upon waking him this evening and not receiving in any pain medication he was fine during my physical exam Follow peripherally, if any concerns develop please do not hesitate to call me at [phone] Also recommend consult with Dr. adler//Timothy for further evaluation and chronic management poor foot care and chronic comorbidities associated with increasing risk for infection This note was generated with [employer] software. It may contain incorrect words, spelling, and punctuation that were not noted in checking the note before signing.
[2017-09-04 20:02] LABS: CPK Total, Creatine Kinase 177 U/L (39-308)
[2017-09-04] MEDS: Mirtazapine 15 MG Tablet PO (21:39)
[2017-09-04] MEDS: Lactulose 20 GM/30 ML UDC 30 GM PO ×2 (21:40→23:58)
[2017-09-04] MEDS: Tamsulosin HCl 0.4 MG Capsule PO (21:41)
[2017-09-04] MEDS: MELATONIN 3 MG TABLET PO (21:41)
[2017-09-04] MEDS: Atorvastatin Calcium 20 MG Tablet PO (21:41)
[2017-09-04] MEDS: Piperacil/Tazobactam 3.375 GM/50 ML ML IV (21:42)
[2017-09-04 22:16] LABS: Bedside Glucose 348 mg/dL (70-110)
[2017-09-05] VITALS (17 sets, daily range): BP systolic 128–142; BP diastolic 45–70; PULSE 99–122; RESP 16–18; TEMP 36.7–37.2; O2SAT 90–95
[2017-09-05] MEDS: Lactulose 20 GM/30 ML UDC 30 GM PO (02:05)
[2017-09-05] MEDS: HYDROcodone Bitartrate/Apap 5/325 Tablet PO ×2 (03:26→16:46)
[2017-09-05] MEDS: Piperacil/Tazobactam 3.375 GM/50 ML ML IV (05:11)
[2017-09-05 05:32] LABS: Absolute Lymphocyte Count 1.63 X10^3/ul (0.83-4.51); Absolute Neutrophil Count 10.7 X10^3/uL (2.0-7.7); Basophil# 0.03 X10^3/uL; Basophil% 0.2 % (0-1); Eosinophils% 1.4 % (0-5); Hematocrit 34.5 % (40-54); Hemoglobin 10.2 g/dl (13.0-16.5); Lymphocyte # 1.63 X10^3/ul (4.0); Lymphocyte % 11.5 % (19-41); Mean Corp Hgb Conc 29.6 g/gl (32-36); Mean Corpuscular Hgb 24.5 pg (27.0-32.0); Mean Corpuscular Volume 82.7 fL (80-94); Mean Platelet Vol. 9.7 fl (6.2-12.0); Monocyte% 10.6 % (0-10); Neutrophil # 10.72 X10^3/uL (2.7-7.7); Neutrophil % 75.8 % (47-70); Platelet Count 293 K/mm3 (150-450); RBC Distribution Width CV 16.6 % (11.6-14.6); Red Blood Count 4.17 M/mm3 (4.6-6.2); White Blood Count 14.2 K/mm3 (4.4-11.0)
[2017-09-05 05:37] LABS: International Normalized Ratio 1.7; Prothrombin Time (Protime)PT. 18.9 SECONDS (11.7-14.9)
[2017-09-05 05:39] LABS: POSITIVE COUNT NO; POSITIVE DIFFERENTIAL NO; POSITIVE MORPHOLOGY NO
[2017-09-05 05:54] LABS: Albumin, Serum 2.8 g/dL (3.2-5.0); BUN 26 mg/dL (7-18); BUN/Creat Ratio 16.6 RATIO (10-20); Calcium,Total 9.3 mg/dL (8.5-10.1); Chloride 93 mmol/L (98-107); Creatinine, Serum 1.57 mg/dL (0.70-1.30); EST Glomerular Filtration Rate 48 mL/min (>60); Est Glom Filt Rate - Afr Amer 59 mL/min (>60); Estimated Creatinine Clearance 49.62 ml/min; Glucose 354 mg/dL (74-106); Phosphorus 3.2 mg/dL (2.5-4.9); Potassium 3.2 mmol/L (3.5-5.1); Sodium Level 140 mmol/L (136-145)
[2017-09-05] MEDS: Ipratropium/Albuterol Sulfate 3 ML AMPUL.NEB INHALATION ×4 (06:54→20:01)
[2017-09-05 07:06] LABS: Bedside Glucose 365 mg/dL (70-110)
[2017-09-05] MEDS: Multivitamins,Therapeutic Tablet 1 TABLET PO (08:22)
[2017-09-05] MEDS: Thiamine Hydrochloride 100 MG Tablet PO (08:22)
--- NOTE | 2017-09-05 08:26 | PN.RENAL_ITS ---
Subjective: Complain of diarrhea all night last night. Edema slowly improving with IV Lasix. Massive diuresis past 24 hours. - Physical Exam General: Alert, Oriented x3, Cooperative, No apparent distress Oral: Dry Mucosa Lungs: Diminished Cardiovascular: Regular rate Abdomen: Bowel Sounds Present, Distended, Obese Extremities: Edema - Anasarca Skin: - - Erythema, cellulitis of his lower extremities Neurological: Motor Exam 5/5 strength throughout Psych/Mental Status: Normal Affect, Alert and oriented to time, place, person, mood and affect Vital Signs Temp Pulse Resp BP Pulse Ox 98.9 F 114 H 16 142/70 H 93 09/05/17 08:08 09/05/17 08:08 09/05/17 08:08 09/05/17 08:08 09/05/17 08:08 Oxygen Flow Rate 3 Oxygen Delivery Method Nasal Cannula Weight: 128.9 kg Body Mass Index (BMI) 48.5 Finger Stick Blood Glucose 72 Intake and Output for Last 24 Hours 09/03/17 09/04/17 09/05/17 23:59 23:59 23:59 Intake Total 1784 / 1784 1353 / 1353 Output Total 6150 / 6150 8200 / 8200 825 / 825 Balance -4366 / -4366 -6847 / -6847 -825 / -825 Laboratory Tests Past 24 Hrs 09/04/17 09/05/17 09/05/17 18:35 05:05 05:05 WBC 14.2 H RBC 4.17 L Hgb 10.2 L Hct 34.5 L MCV 82.7 MCH 24.5 L MCHC 29.6 L RDW 16.6 H RDW Differential 48.0 H Plt Count 293 MPV 9.7 Immature Gran % (Auto) 0.500 Neut % (Auto) 75.8 H Lymph % (Auto) 11.5 L [place] % (Auto) 10.6 H Eos % (Auto) 1.4 Baso % (Auto) 0.2 Absolute Neuts (auto) 10.7 H Absolute Lymphs (auto) 1.63 Total Counted Not Reportable PT INR Sodium 140 Potassium 3.2 L Chloride 93 L Carbon Dioxide 39.0 H BUN 26 H Creatinine 1.57 H Estim Creat Clear Calc 49.62 Est GFR (MDRD) Af Amer 59 L Est GFR (MDRD) Non-Af 48 L BUN/Creatinine Ratio 16.6 Glucose 354 H Calcium 9.3 Phosphorus 3.2 Total Creatine Kinase 177 Albumin 2.8 L 09/05/17 05:05 WBC RBC Hgb Hct MCV MCH MCHC RDW RDW Differential Plt Count MPV Immature Gran % (Auto) Neut % (Auto) Lymph % (Auto) [place] % (Auto) Eos % (Auto) Baso % (Auto) Absolute Neuts (auto) Absolute Lymphs (auto) Total Counted PT 18.9 H INR 1.7 Sodium Potassium Chloride Carbon Dioxide BUN Creatinine Estim Creat Clear Calc Est GFR (MDRD) Af Amer Est GFR (MDRD) Non-Af BUN/Creatinine Ratio Glucose Calcium Phosphorus Total Creatine Kinase Albumin POC Glucose 09/05/17 09/04/17 09/04/17 06:47 21:38 17:44 POC Glucose 365 H 348 H 313 H 09/04/17 11:44 POC Glucose 364 H Assessment/Plan 1. 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 Baseline creatinine 1.05 in February 2016 creatinine stable at 1.5 today 2. BPH on Flomax at [facility]. Continue with Bright 3. Severe morbid obesity sleep apnea on CPAP at home. 4. DM Type II s/p rt BKA, A1c 10.0 5. Hypertension with stable blood pressures 6. CAD s/p PCI 7. acute on chronic diastolic HF, anasarca. Reduce IV Lasix to once a day due to metabolic alkalosis from diuretic therapy. 8. Hypokalemia replace as needed
[2017-09-05] MEDS: DULoxetine Hcl 60 MG Capsule 120 MG PO (09:27)
[2017-09-05] MEDS: Furosemide 100 MG/10 ML Vial 80 MG IV (09:28)
[2017-09-05] MEDS: Pregabalin 50 MG Capsule PO ×2 (09:28→22:17)
[2017-09-05] MEDS: Metoprolol Tartrate 25 MG Tablet PO ×2 (09:28→22:19)
[2017-09-05] MEDS: Senna Tablet 1 TABLET PO ×2 (09:28→22:19)
[2017-09-05] MEDS: Pantoprazole Sodium 20 MG Tablet PO (09:28)
[2017-09-05] MEDS: 0.9% NaCl Peripheral Flush Adult/Peds IV (09:29)
--- NOTE | 2017-09-05 10:58 | PCM.HP.ID ---
Problem List (1) Cellulitis of left lower extremity without foot Status: Acute Reason for Consult: cellulitis Consulted by: Dr. Senior History of Present Illness: The patient is a 56 year old M with h/o R BKA and DM who presented with about 2 months of slowly progressive LLE swelling, redness, soreness. Edema extended up to abd. No fever or chills. Small clear drainage from wounds on top of L foot. Remote h/o MRSA. No purulence currently. R BKA is well healed. No outpt abx that he is aware of. He was drinking a lot of fluid, but not going to the bathroom much. Came to [facility], found to be in JAILENE, neph consulted. Initially given clinda/cefazolin, changed to vanc/zosyn yesterday due to pain and lack of improvement. CT scan and ortho consult done yesterday. No n/v/d on iv abx. Full ROS performed and neg except as noted above. - Medical History Past Medical History (Chronic Problems): Chronic Problems (Last Updated 09/02/17 @ 15:40 by Wesley Senior DO) Diabetes mellitus, type 2 (Chronic) Hypertension (Chronic) Hyperlipidemia (Chronic) Chronic obstructive lung disease (Chronic) Chronic diastolic CHF (congestive heart failure) (Chronic) ischemic cardiomyopathy Obstructive sleep apnea (Chronic) Back pain (Chronic) CAD (coronary artery disease) (Chronic) Status post the first OM the LCx appears to be occluded First OM with proximal 50-75% appearing stenosis followed by minimal luminal irregularities - recommended medical management Depression (Chronic) Nicotine dependence (Chronic) Microcytic anemia (Chronic) Chronic respiratory failure with hypoxia (Chronic) Morbid obesity with BMI of 40.0-44.9, adult (Chronic) PAF (paroxysmal atrial fibrillation) (Chronic) Allergies/Adverse Reactions: Allergies ciprofloxacin [From Cipro] Allergy (Verified 09/01/17 15:48) itching/burning when given IV ciprofloxacin HCl [From Cipro] Allergy (Verified 09/01/17 15:48) Unknown ibuprofen [From Motrin] Allergy (Verified 09/01/17 15:48) elevated white count? tramadol Allergy (Verified 09/01/17 15:48) makes me shake/twitch venom-honey bee [bee venom (honey bee)] Allergy (Verified 09/01/17 15:48) Shortness of breath Home Medications: Ambulatory Orders Medication Instructions Recorded Cholecalciferol (VIT D3) [Vitamin 2,000 unit PO DAILY 12/23/15 D3] Duloxetine HCl 120 mg PO DAILY 12/23/15 Magnesium Oxide [Mag-Ox 400] 400 mg PO DAILY 12/23/15 Melatonin 3 mg PO QHS 12/23/15 Metoprolol Tartrate [Lopressor 25 mg PO BID 12/23/15 (beta carlos eduardo)] Multivitamins,Therapeutic 1 tab PO DAILY 12/23/15 [Multivitamin] Potassium Chloride [K-Liliana] 15 ml PO BID 12/23/15 Sennosides [Evac-U-Gen] 2 tab PO BID 12/23/15 Thiamine HCl [B-1] 100 mg PO DAILY 12/23/15 Warfarin [Coumadin] 5 mg PO QHS 12/23/15 Metformin HCl [Glucophage] 500 mg PO BIDCM #0 tab 12/27/15 Torsemide [Demadex] 20 mg PO DAILY #30 tab 12/27/15 Nitroglycerin [Nitrostat] 0.4 mg SUBLINGUAL Q5M PRN #30 tab 01/18/16 Acetaminophen [Tylenol Tablet] 650 mg PO Q6H PRN PRN #10 tab 02/16/16 Acetaminophen 650 mg RC Q6H PRN PRN 09/01/17 Atorvastatin Calcium 20 mg PO QHS 09/01/17 Bisacodyl [Laxative Suppository] 10 mg RC PRN PRN 09/01/17 BusPIRone [Buspar] 5 mg PO TID 09/01/17 Dextrose [Glucose Gel] 38 gm PO PRN PRN 09/01/17 Furosemide [Lasix] 20 mg PO DAILY 09/01/17 Glucagon,Human Recombinant 1 mg IJ PRN PRN 09/01/17 [Glucagon Emergency Kit] Guaifenesin [Robitussin] 10 ml PO Q4H PRN PRN 09/01/17 Hydrocodone Bitart/Apap 5-325 1 tablet PO BID PRN PRN 09/01/17 [[place] 5MG-325MG] Hydroxyzine HCl 25 mg PO Q6H PRN PRN 09/01/17 Insulin Detemir [Levemir FlexPen] 55 units SC BID 09/01/17 Insulin Lispro [Humalog] 10 unit SC TIDCM 09/01/17 Ipratropium/Albuterol Sulfate 3 ml INHALATION DAILY 09/01/17 [Duoneb] Ipratropium/Albuterol Sulfate 3 ml INHALATION Q4H PRN PRN 09/01/17 [Duoneb] Mag Hydrox/Al Hydrox/Simeth 30 ml PO Q4H PRN PRN 09/01/17 [Antacid Suspension] Magnesium Hydroxide [Milk Of 30 ml PO DAILY PRN PRN 09/01/17 Magnesia] Mirtazapine [Remeron] 15 mg PO QHS 09/01/17 MorphINE [MS Contin] 30 mg PO Q8H 09/01/17 Na Phos,M-B/Na Phos,Di-Ba [Fleet 1 bottle RECTAL DAILY PRN PRN 09/01/17 Enema] Omeprazole [Prilosec] 20 mg PO DAILY 09/01/17 Pregabalin [Lyrica] 50 mg PO BID 09/01/17 Tamsulosin HCl [Flomax] 0.4 mg PO QHS 09/01/17 Warfarin [Coumadin (PBKC)] 2 mg PO SUTUTHSA 09/01/17 - Social History SMOKING STATUS:: Former smoker Vital Signs Temp Pulse Resp BP Pulse Ox 98.9 F 122 H 16 142/70 H 93 09/05/17 08:08 09/05/17 09:28 09/05/17 08:08 09/05/17 08:08 09/05/17 08:08 Oxygen Flow Rate 3 Oxygen Delivery Method Nasal Cannula Weight: 128.9 kg Body Mass Index (BMI) 48.5 Finger Stick Blood Glucose 72 Laboratory Tests Past 24 Hrs 09/04/17 09/05/17 09/05/17 18:35 05:05 05:05 WBC 14.2 H RBC 4.17 L Hgb 10.2 L Hct 34.5 L MCV 82.7 MCH 24.5 L MCHC 29.6 L RDW 16.6 H RDW Differential 48.0 H Plt Count 293 MPV 9.7 Immature Gran % (Auto) 0.500 Neut % (Auto) 75.8 H Lymph % (Auto) 11.[address] [place] % (Auto) 10.6 H Eos % (Auto) 1.4 Baso % (Auto) 0.2 Absolute Neuts (auto) 10.7 H Absolute Lymphs (auto) 1.63 Total Counted Not Reportable PT INR Sodium 140 Potassium 3.2 L Chloride 93 L Carbon Dioxide 39.0 H BUN 26 H Creatinine 1.57 H Estim Creat Clear Calc 49.62 Est GFR (MDRD) Af Amer 59 L Est GFR (MDRD) Non-Af 48 L BUN/Creatinine Ratio 16.6 Glucose 354 H Calcium 9.3 Phosphorus 3.2 Total Creatine Kinase 177 Albumin 2.8 L 09/05/17 05:05 WBC RBC Hgb Hct MCV MCH MCHC RDW RDW Differential Plt Count MPV Immature Gran % (Auto) Neut % (Auto) Lymph % (Auto) [place] % (Auto) Eos % (Auto) Baso % (Auto) Absolute Neuts (auto) Absolute Lymphs (auto) Total Counted PT 18.9 H INR 1.7 Sodium Potassium Chloride Carbon Dioxide BUN Creatinine Estim Creat Clear Calc Est GFR (MDRD) Af Amer Est GFR (MDRD) Non-Af BUN/Creatinine Ratio Glucose Calcium Phosphorus Total Creatine Kinase Albumin - Other Studies Radiology: [] reviewed Other Studies: [] Route of nutrition/ use of supplements: [] Nutritional Intake: [] IV Site: [] Bright Catheter: [] - Physical Exam General: Alert, Oriented x3, Cooperative, No apparent distress HEENT: Atraumatic, PERRLA, EOMI Neck: Supple, No Nodes Lungs: Clear to auscultation, Normal air movement Cardiovascular: Regular rate, Regular Rhythm, No murmurs Abdomen: Bowel Sounds Present, Soft, - - edematous Extremities: Edema, - - R BKA, well healed Skin: Rash Present - extending from [place] to mid-thigh on LLE IV Site: Peripheral, without redness Musculoskeletal: No Tenderness to Palpation of Joints or Extremities Neurological: Cranial nerves II-XII grossly intact - Assessment/Plan Antibiotics: [] Assessment/Plan: [] LLE cellulitis - given timeframe and slow progression of symptoms, primary cause seems to be JAILENE and edema. Difficult to definitively rule out associated infection, but lack of fever and lack of improvement with good abx coverage argue against a major infection. CT of leg was consistent with diffuse edema, no gas or abscess seen. No purulence, so low risk for mRSA. I think it is reasonable to cover for infection. Vanc/zosyn has increased risk of nephrotoxicity, so will narrow back to cefazolin. Will restart clinda to have some mrsa coverage and take advantage of [place] effect. Thank you, will follow, d/w Dr. Senior.
[2017-09-05 11:16] LABS: Bedside Glucose 447 mg/dL (70-110)
--- NOTE | 2017-09-05 13:35 | PCM.PN.HOSP ---
Patient Problems: Active and Suspected Problems (Last Updated 09/02/17 @ 15:40 by Wesley Senior DO) Cellulitis of left lower extremity without foot (Acute) Acute on chronic diastolic (congestive) heart failure (Acute) Subjective: Doing well. Patient states that the swelling and pain in his left leg is improved. Patient was having some abdominal pain but did not improve after having very large bowel movements. Vitals/I&O's: Vital Signs Temp Pulse Resp BP Pulse Ox 37.2 C 106 H 16 142/70 H 93 09/05/17 08:08 09/05/17 11:03 09/05/17 10:44 09/05/17 08:08 09/05/17 08:08 Oxygen Flow Rate 3 Oxygen Delivery Method Nasal Cannula Weight: 128.9 kg Body Mass Index (BMI) 48.5 Finger Stick Blood Glucose 72 Intake and Output for Last 24 Hours 09/03/17 09/04/17 09/05/17 23:59 23:59 23:59 Intake Total 1784 / 1784 1353 / 1353 1335 / 1335 Output Total 6150 / 6150 8200 / 8200 2275 / 2275 Balance -4366 / -4366 -6847 / -6847 -940 / -940 General: Alert, Cooperative, No apparent distress HEENT: Atraumatic, Normocephalic Neck: No Nodes, Thyroid Normal Size and Texture Lungs: Clear to auscultation, Normal air movement, No rhonchi, No wheeze Cardiovascular: Regular rate, Regular Rhythm, Normal S1, Normal S2 Abdomen: Bowel Sounds Present, Soft, Non Tender, Non-Distended Extremities: No Calf Tenderness, Edema Skin: - - Still with erythema on the left lower extremity but is less tender and less indurated today. Psych/Mental Status: Normal Affect, Appropriate Laboratory Results 09/04/17 17:44: POC Glucose 313 H 09/04/17 18:35: Total Creatine Kinase 177 09/04/17 21:38: POC Glucose 348 H 09/05/17 05:05: Sodium 140, Potassium 3.2 L, Chloride 93 L, Carbon Dioxide 39.0 H, BUN 26 H, Creatinine 1.57 H, Estim Creat Clear Calc 49.62, Est GFR (MDRD) Af Amer 59 L, Est GFR (MDRD) Non-Af 48 L, BUN/Creatinine Ratio 16.6, Glucose 354 H, Calcium 9.3, Phosphorus 3.2, Albumin 2.8 L 09/05/17 05:05: WBC 14.2 H, RBC 4.17 L, Hgb 10.2 L, Hct 34.5 L, MCV 82.7, MCH 24.5 L, MCHC 29.6 L, RDW 16.6 H, RDW Differential 48.0 H, Plt Count 293, MPV 9.7, Immature Gran % (Auto) 0.500, Neut % (Auto) 75.8 H, Lymph % (Auto) 11.5 L, [place] % (Auto) 10.6 H, Eos % (Auto) 1.4, Baso % (Auto) 0.2, Absolute Neuts (auto) 10.7 H, Absolute Lymphs (auto) 1.63, Total Counted Not Reportable 09/05/17 05:05: PT 18.9 H, INR 1.7 09/05/17 06:47: POC Glucose 365 H 09/05/17 11:05: POC Glucose 447 H Current Medications Hydrocodone Bitart/Acetaminophen ([place] 5mg-325mg) 1 tablet PO BID PRN PRN PRN Reason: BREAKTHROUGH PAIN (>4/10) Last Admin: 09/05/17 03:26 Dose: 1 tablet Al Hydroxide/Mg Hydroxide (Mylanta Ii) 30 ml PO Q4H PRN PRN PRN Reason: gi distress Albuterol/Ipratropium (Duoneb) 3 ml INHALATION Q4H PRN PRN PRN Reason: SOB &/OR WHEEZING Albuterol/Ipratropium (Duoneb) 3 ml INHALATION Q4HWA.RT [facility] Last Admin: 09/05/17 10:44 Dose: 3 ml Atorvastatin Calcium (Lipitor) 20 mg PO QHS [facility] Last Admin: 09/04/17 21:41 Dose: 20 mg Bisacodyl (Dulcolax) 10 mg RECTAL PRN PRN PRN Reason: Constipation Buspirone HCl (Buspar) 5 mg PO TID [facility] Last Admin: 09/05/17 05:11 Dose: 5 mg Cholecalciferol (Vitamin D) 2,000 unit PO DAILY [facility] Last Admin: 09/05/17 09:28 Dose: 2,000 unit Dextrose (D50w Syringe) 0 gm IV X1 PRN; Protocol PRN Reason: Hypoglycemia Duloxetine HCl (Cymbalta) 120 mg PO DAILY [facility] Last Admin: 09/05/17 09:27 Dose: 120 mg Furosemide (Lasix) 80 mg IV DAILY [facility] Last Admin: 09/05/17 09:28 Dose: 80 mg Glucagon () 1 mg IM .X1 PRN PRN Reason: Hypoglycemia Guaifenesin (Robitussin) 10 ml PO Q4H PRN PRN PRN Reason: COUGH Heparin Sodium (Porcine) (Heparin Na) 5,000 unit SC BID [facility] Last Admin: 09/05/17 09:29 Dose: 5,000 units Hydroxyzine Pamoate (Vistaril) 25 mg PO Q6H PRN PRN PRN Reason: ANXIETY Cefazolin Sodium 2 gm/ Sodium (Chloride) 120 mls @ 240 mls/hr IV Q8 [facility] Clindamycin Phosphate (Cleocin) 600 mg in 50 mls @ 100 mls/hr IV Q8 [facility] Insulin Aspart (Novolog Flexpen (Bkc)) 0 units SC ACHS [facility] PRN Reason: Protocol Last Admin: 09/05/17 11:08 Dose: 4 u Insulin Aspart (Novolog Flexpen (Bkc)) 10 units SC TIDCM [facility] Last Admin: 09/05/17 11:08 Dose: 10 u Insulin Detemir (Levemir (Bkc)) 55 units SC BID [facility] Last Admin: 09/05/17 12:19 Dose: 55 units Magnesium Hydroxide (Milk Of Magnesia) 30 ml PO DAILY PRN PRN Reason: Constipation Last Admin: 09/03/17 08:19 Dose: 30 ml Melatonin (Melatonin) 3 mg PO QHS [facility] Last Admin: 09/04/17 21:41 Dose: 3 mg Metoprolol Tartrate (Lopressor (Beta Ronald)) 25 mg PO BID [facility] Last Admin: 09/05/17 09:28 Dose: 25 mg Mirtazapine (Remeron) 15 mg PO QHS [facility] Last Admin: 09/04/17 21:39 Dose: 15 mg Morphine Sulfate (Ms Contin) 30 mg PO Q8 [facility] Last Admin: 09/05/17 05:11 Dose: 30 mg [facility] Admin: 09/05/17 08:22 Dose: 1 tablet Nitroglycerin (Nitrostat) 0.4 mg SUBLINGUAL Q5M PRN PRN Reason: Chest Pain Ondansetron HCl (Zofran) 4 mg IV Q6H PRN PRN PRN Reason: NAUSEA/VOMITING Pantoprazole Sodium (Protonix) 20 mg PO DAILY [facility] Last Admin: 09/05/17 09:28 Dose: 20 mg Potassium Chloride (K-Dur) [facility] Last Admin: 09/05/17 08:22 Dose: 40 meq Pregabalin (Lyrica) 50 mg PO BID [facility] Last Admin: 09/05/17 09:28 Dose: 50 mg Senna (Senokot) 1 tablet PO BID [facility] Last Admin: 09/05/17 09:28 Dose: 1 tablet Sodium Biphosphate/Sodium Phosphate (Fleet Enema) 1 bottle RECTAL DAILY PRN PRN PRN Reason: Constipation Sodium Chloride () 5 - 30 ml IV UD PRN PRN Reason: SALINE FLUSH Last Admin: 09/05/17 09:29 Dose: 10 ml Tamsulosin HCl (Flomax) 0.4 mg PO QHS [facility] Last Admin: 09/04/17 21:41 Dose: 0.4 mg Thiamine [facility] ([facility]amin B1) [facility] Last Admin: 09/05/17 08:22 Dose: 100 mg Assessment/Plan Active and Suspected Problems (Last Updated 09/02/17 @ 15:40 by Wesley Senior DO) Cellulitis of left lower extremity without foot (Acute) Acute on chronic diastolic (congestive) heart failure (Acute) 1. Left lower extremity cellulitis Slightly improved today. Appreciate the input by orthopedics and infectious disease. No evidence of necrotizing fasciitis at this time. Comp gated by the patient's underlying CHF and edema. Patient changed over to cefazolin. 2. Acute heart failure with preserved ejection fraction EF is a 55% from echocardiogram from August 08, 2017. Continue with IV Lasix, which change at over to twice daily from once daily as patient is still very volume overloaded. Will not start any beta-ronald in light of the acute heart failure exacerbation Hold off on CHAPO inhibitors and angiotensin receptor blockers in light of acute kidney injury, presumed Weight is down overall this patient still with diffuse lower extremity edema. Patient's weight is down considerably from 147.5 kg to now 128.9 kg. Patient had a weight of 124.3 kg back on July 17. Going to transition the patient back to oral Lasix. 3. Acute kidney injury improving Creatinine is 1.57. Patient's last creatinine was from February 2016 were is 1.23 at that time. May be related with urinary retention. Renal ultrasound was limited but show no obvious hydronephrosis. 4. Paroxysmal atrial fibrillation INR subtherapeutic. Continue to monitor. 5. DT prophylaxis: Patient is anticoagulated. 6. Hypokalemia Currently being replaced Follow-up BMP as well as magnesium in the morning. 7. Disposition Anticipate another 24-48 hours in the hospital depending on the patient's course. Code Visit Inpatient E&M: 31785 Subs Hosp L2
--- NOTE | 2017-09-05 13:41 | PN_ITS ---
Patient Problems: Active and Suspected Problems (Last Updated 09/02/17 @ 15:40 by Wesley Senior DO ) Cellulitis of left lower extremity without foot (Acute) Acute on chronic diastolic (congestive) heart failure (Acute) Subjective: Doing well. Patient states that the swelling and pain in his left leg is improved. Patient was having some abdominal pain but did not improve after having very large bowel movements. Vitals/I&O's: Vital Signs Temp Pulse Resp BP Pulse Ox 37.2 C 106 H 16 142/70 H 93 09/05/17 08:08 09/05/17 11:03 09/05/17 10:44 09/05/17 08:08 09/05/17 08:08 Oxygen Flow Rate 3 Oxygen Delivery Method Nasal Cannula Weight: 128.9 kg Body Mass Index (BMI) 48.5 Finger Stick Blood Glucose 72 Intake and Output for Last 24 Hours 09/03/17 09/04/17 09/05/17 23:59 23:59 23:59 Intake Total 1784 / 1784 1353 / 1353 1335 / 1335 Output Total 6150 / 6150 8200 / 8200 2275 / 2275 Balance -4366 / -4366 -6847 / -6847 -940 / -940 General: Alert, Cooperative, No apparent distress HEENT: Atraumatic, Normocephalic Neck: No Nodes, Thyroid Normal Size and Texture Lungs: Clear to auscultation, Normal air movement, No rhonchi, No wheeze Cardiovascular: Regular rate, Regular Rhythm, Normal S1, Normal S2 Abdomen: Bowel Sounds Present, Soft, Non Tender, Non-Distended Extremities: No Calf Tenderness, Edema Skin: - - Still with erythema on the left lower extremity but is less tender and less indurated today. Psych/Mental Status: Normal Affect, Appropriate Laboratory Results 09/04/17 17:44: POC Glucose 313 H 09/04/17 18:35: Total Creatine Kinase 177 09/04/17 21:38: POC Glucose 348 H 09/05/17 05:05: Sodium 140, Potassium 3.2 L, Chloride 93 L, Carbon Dioxide 39.0 H, BUN 26 H, Creatinine 1.57 H, Estim Creat Clear Calc 49.62, Est GFR (MDRD) Af Amer 59 L, Est GFR (MDRD) Non-Af 48 L, BUN/Creatinine Ratio 16.6, Glucose 354 H , Calcium 9.3, Phosphorus 3.2, Albumin 2.8 L 09/05/17 05:05: WBC 14.2 H, RBC 4.17 L, Hgb 10.2 L, Hct 34.5 L, MCV 82.7, MCH 24.5 L, MCHC 29.6 L, RDW 16.6 H, RDW Differential 48.0 H, Plt Count 293, MPV 9.7 , Immature Gran % (Auto) 0.500, Neut % (Auto) 75.8 H, Lymph % (Auto) 11.5 L, White % (Auto) 10.6 H, Eos % (Auto) 1.4, Baso % (Auto) 0.2, Absolute Neuts (auto ) 10.7 H, Absolute Lymphs (auto) 1.63, Total Counted Not Reportable 09/05/17 05:05: PT 18.9 H, INR 1.7 09/05/17 06:47: POC Glucose 365 H 09/05/17 11:05: POC Glucose 447 H Current Medications Hydrocodone Bitart/Acetaminophen ([place] 5mg-325mg) 1 tablet PO BID PRN PRN PRN Reason: BREAKTHROUGH PAIN (>4/10) Last Admin: 09/05/17 03:26 Dose: 1 tablet Al Hydroxide/Mg Hydroxide (Mylanta Ii) 30 ml PO Q4H PRN PRN PRN Reason: gi distress Albuterol/Ipratropium (Duoneb) 3 ml INHALATION Q4H PRN PRN PRN Reason: SOB &/OR WHEEZING Albuterol/Ipratropium (Duoneb) 3 ml INHALATION Q4HWA.RT [facility] Last Admin: 09/05/17 10:44 Dose: 3 ml Atorvastatin Calcium (Lipitor) 20 mg PO QHS [facility] Last Admin: 09/04/17 21:41 Dose: 20 mg Bisacodyl (Dulcolax) 10 mg RECTAL PRN PRN PRN Reason: Constipation Buspirone HCl (Buspar) 5 mg PO TID [facility] Last Admin: 09/05/17 05:11 Dose: 5 mg Cholecalciferol (Vitamin D) 2,000 unit PO DAILY [facility] Last Admin: 09/05/17 09:28 Dose: 2,000 unit Dextrose (D50w Syringe) 0 gm IV X1 PRN; Protocol PRN Reason: Hypoglycemia Duloxetine HCl (Cymbalta) 120 mg PO DAILY [facility] Last Admin: 09/05/17 09:27 Dose: 120 mg Furosemide (Lasix) 80 mg IV DAILY [facility] Last Admin: 09/05/17 09:28 Dose: 80 mg Glucagon () 1 mg IM .X1 PRN PRN Reason: Hypoglycemia Guaifenesin (Robitussin) 10 ml PO Q4H PRN PRN PRN Reason: COUGH Heparin Sodium (Porcine) (Heparin Na) 5,000 unit SC BID [facility] Last Admin: 09/05/17 09:29 Dose: 5,000 units Hydroxyzine Pamoate (Vistaril) 25 mg PO Q6H PRN PRN PRN Reason: ANXIETY Cefazolin Sodium 2 gm/ Sodium (Chloride) 120 mls @ 240 mls/hr IV Q8 [facility] Clindamycin Phosphate (Cleocin) 600 mg in 50 mls @ 100 mls/hr IV Q8 [facility] Insulin Aspart (Novolog Flexpen (Bkc)) 0 units SC ACHS [facility] PRN Reason: Protocol Last Admin: 09/05/17 11:08 Dose: 4 u Insulin Aspart (Novolog Flexpen (Bkc)) 10 units SC TIDCM [facility] Last Admin: 09/05/17 11:08 Dose: 10 u Insulin Detemir (Levemir (Bkc)) 55 units SC BID [facility] Last Admin: 09/05/17 12:19 Dose: 55 units Magnesium Hydroxide (Milk Of Magnesia) 30 ml PO DAILY PRN PRN Reason: Constipation Last Admin: 09/03/17 08:19 Dose: 30 ml Melatonin (Melatonin) 3 mg PO QHS [facility] Last Admin: 09/04/17 21:41 Dose: 3 mg Metoprolol Tartrate (Lopressor (Beta Ronald)) 25 mg PO BID [facility] Last Admin: 09/05/17 09:28 Dose: 25 mg Mirtazapine (Remeron) 15 mg PO QHS [facility] Last Admin: 09/04/17 21:39 Dose: 15 mg Morphine Sulfate (Ms Contin) 30 mg PO Q8 [facility] Last Admin: 09/05/17 05:11 Dose: 30 mg Multivitamins ([facility]amin) [facility] Last Admin: 09/05/17 08:22 Dose: 1 tablet Nitroglycerin (Nitrostat) 0.4 mg SUBLINGUAL Q5M PRN PRN Reason: Chest Pain Ondansetron HCl (Zofran) 4 mg IV Q6H PRN PRN PRN Reason: NAUSEA/VOMITING Pantoprazole Sodium (Protonix) 20 mg PO DAILY [facility] Last Admin: 09/05/17 09:28 Dose: 20 mg Potassium Chloride (K-Dur) [facility] Last Admin: 09/05/17 08:22 Dose: 40 meq Pregabalin (Lyrica) 50 mg PO BID [facility] Last Admin: 09/05/17 09:28 Dose: 50 mg Senna (Senokot) 1 tablet PO BID [facility] Last Admin: 09/05/17 09:28 Dose: 1 tablet Sodium Biphosphate/Sodium Phosphate (Fleet Enema) 1 bottle RECTAL DAILY PRN PRN PRN Reason: Constipation Sodium Chloride () 5 - 30 ml IV UD PRN PRN Reason: SALINE FLUSH Last Admin: 09/05/17 09:29 Dose: 10 ml Tamsulosin HCl (Flomax) 0.4 mg PO QHS [facility] Last Admin: 09/04/17 21:41 Dose: 0.4 mg Thiamine HCl (Vitamin B1) [facility] Last Admin: 09/05/17 08:22 Dose: 100 mg Assessment/Plan Active and Suspected Problems (Last Updated 09/02/17 @ 15:40 by Wesley Senior DO ) Cellulitis of left lower extremity without foot (Acute) Acute on chronic diastolic (congestive) heart failure (Acute) 1. Left lower extremity cellulitis * Slightly improved today. Appreciate the input by orthopedics and infectious disease. * No evidence of necrotizing fasciitis at this time. * Comp gated by the patient's underlying CHF and edema. * Patient changed over to cefazolin. 2. Acute heart failure with preserved ejection fraction * EF is a 55% from echocardiogram from August 08, 2017. * Continue with IV Lasix, which change at over to twice daily from once daily as patient is still very volume overloaded. * Will not start any beta-ronald in light of the acute heart failure exacerbation * Hold off on CHAPO inhibitors and angiotensin receptor blockers in light of acute kidney injury, presumed * Weight is down overall this patient still with diffuse lower extremity edema. * Patient's weight is down considerably from 147.5 kg to now 128.9 kg. Patient had a weight of 124.3 kg back on July 17. * Going to transition the patient back to oral Lasix. 3. Acute kidney injury * improving * Creatinine is 1.57. Patient's last creatinine was from February 2016 were is 1.23 at that time. * May be related with urinary retention. * Renal ultrasound was limited but show no obvious hydronephrosis. 4. Paroxysmal atrial fibrillation * INR subtherapeutic. Continue to monitor. 5. DT prophylaxis: Patient is anticoagulated. 6. Hypokalemia * Currently being replaced * Follow-up BMP as well as magnesium in the morning. 7. Disposition * Anticipate another 24-48 hours in the hospital depending on the patient's course. Code Visit Inpatient E&M: 67998 Subs Hosp L2
--- NOTE | 2017-09-05 13:43 | CASEMGMT ---
RUSSEL faxed updates to [facility]. Melanie العلي OPERATIONS SPECIALIST
[2017-09-05] MEDS: Clindamycin 600 MG/50 ML BAG 100 MG IV ×2 (16:38→22:24)
[2017-09-05 16:46] LABS: Bedside Glucose 398 mg/dL (70-110)
[2017-09-05] MEDS: Furosemide 40 MG Tablet PO (16:46)
[2017-09-05] MEDS: Cefazolin 2 GM in 0.9% Normal Saline 100 ML IV ×2 (17:53→22:03)
[2017-09-05 22:10] LABS: Bedside Glucose 376 mg/dL (70-110)
[2017-09-05] MEDS: MELATONIN 3 MG TABLET PO (22:17)
[2017-09-05] MEDS: Atorvastatin Calcium 20 MG Tablet PO (22:18)
[2017-09-05] MEDS: Mirtazapine 15 MG Tablet PO (22:18)
[2017-09-05] MEDS: Tamsulosin HCl 0.4 MG Capsule PO (22:20)
[2017-09-06] VITALS (9 sets, daily range): BP systolic 111–147; BP diastolic 58–62; PULSE 95–123; RESP 16–18; TEMP 36.6–37; O2SAT 94–95
[2017-09-06 06:00] LABS: Absolute Lymphocyte Count 1.91 X10^3/ul (0.83-4.51); Absolute Neutrophil Count 8.5 X10^3/uL (2.0-7.7); Basophil# 0.04 X10^3/uL; Basophil% 0.3 % (0-1); Eosinophil# 0.44 X10^3/uL; Eosinophils% 3.6 % (0-5); Hematocrit 33.4 % (40-54); Hemoglobin 9.9 g/dl (13.0-16.5); Lymphocyte # 1.91 X10^3/ul (4.0); Lymphocyte % 15.6 % (19-41); Mean Corp Hgb Conc 29.6 g/gl (32-36); Mean Corpuscular Hgb 24.9 pg (27.0-32.0); Mean Corpuscular Volume 84.1 fL (80-94); Mean Platelet Vol. 9.6 fl (6.2-12.0); Monocyte# 1.36 X10^3/uL; Monocyte% 11.1 % (0-10); Neutrophil # 8.46 X10^3/uL (2.7-7.7); Neutrophil % 69.1 % (47-70); Platelet Count 241 K/mm3 (150-450); RBC Distribution Width CV 17.5 % (11.6-14.6); RBC Distribution Width SD 48.6 fl (35.1-43.9); Red Blood Count 3.97 M/mm3 (4.6-6.2); White Blood Count 12.3 K/mm3 (4.4-11.0)
[2017-09-06 06:01] LABS: International Normalized Ratio 1.6; Prothrombin Time (Protime)PT. 18.2 SECONDS (11.7-14.9)
[2017-09-06 06:04] LABS: POSITIVE COUNT NO; POSITIVE DIFFERENTIAL NO; POSITIVE MORPHOLOGY NO
[2017-09-06 06:28] LABS: Albumin, Serum 2.7 g/dL (3.2-5.0); BUN 20 mg/dL (7-18); BUN/Creat Ratio 14.2 RATIO (10-20); Chloride 91 mmol/L (98-107); Creatinine, Serum 1.41 mg/dL (0.70-1.30); EST Glomerular Filtration Rate 55 mL/min (>60); Est Glom Filt Rate - Afr Amer 66 mL/min (>60); Estimated Creatinine Clearance 55.25 ml/min; Glucose 137 mg/dL (74-106); Magnesium 1.6 mg/dL (1.6-2.6); Phosphorus 3.4 mg/dL (2.5-4.9); Potassium 3.5 mmol/L (3.5-5.1); Sodium Level 139 mmol/L (136-145)
[2017-09-06] MEDS: Cefazolin 2 GM in 0.9% Normal Saline 100 ML IV (06:30)
[2017-09-06] MEDS: Clindamycin 600 MG/50 ML BAG 100 MG IV (06:30)
[2017-09-06] MEDS: Ipratropium/Albuterol Sulfate 3 ML AMPUL.NEB INHALATION ×2 (06:50→10:46)
[2017-09-06 06:56] LABS: Bedside Glucose 126 mg/dL (70-110)
[2017-09-06] MEDS: Multivitamins,Therapeutic Tablet 1 TABLET PO (08:55)
[2017-09-06] MEDS: Thiamine Hydrochloride 100 MG Tablet PO (08:57)
[2017-09-06] MEDS: DULoxetine Hcl 60 MG Capsule 120 MG PO (08:57)
[2017-09-06] MEDS: Pantoprazole Sodium 20 MG Tablet PO (08:59)
[2017-09-06] MEDS: Senna Tablet 1 TABLET PO (08:59)
[2017-09-06] MEDS: Metoprolol Tartrate 25 MG Tablet PO ×2 (08:59→10:18)
[2017-09-06] MEDS: Furosemide 40 MG Tablet PO (09:02)
[2017-09-06] MEDS: Pregabalin 50 MG Capsule PO (09:02)
[2017-09-06] MEDS: HYDROcodone Bitartrate/Apap 5/325 Tablet PO (09:04)
[2017-09-06 09:16] LABS: Bedside Glucose 231 mg/dL (70-110)
--- NOTE | 2017-09-06 10:37 | PCM.PN.HOSP ---
Patient Problems: Active and Suspected Problems (Last Updated 09/05/17 @ 13:35 by Wesley Senior DO) Cellulitis of left lower extremity without foot (Acute) Acute on chronic diastolic (congestive) heart failure (Acute) Subjective: Doing well. Leg is feeling better with decreased redness. Patient feels that he needs a couple more days here to get stronger. Vitals/I&O's: Vital Signs Temp Pulse Resp BP Pulse Ox 37.0 C 123 H 18 147/62 H 95 09/06/17 03:00 09/06/17 10:18 09/06/17 07:03 09/06/17 03:00 09/06/17 07:03 Oxygen Flow Rate 3 Oxygen Delivery Method Nasal Cannula Weight: 128.9 kg Body Mass Index (BMI) 48.5 Finger Stick Blood Glucose 72 Intake and Output for Last 24 Hours 09/04/17 09/05/17 09/06/17 23:59 23:59 23:59 Intake Total 1353 / 1353 3459 / 3459 369.9 / 369.9 Output Total 8200 / 8200 3875 / 3875 625 / 625 Balance -6847 / -6847 -416 / -416 -255.1 / -255.1 General: Alert, Cooperative, No apparent distress, - - Respiratory distress. No conversational dyspnea. HEENT: Atraumatic, Normocephalic Neck: No Nodes, Thyroid Normal Size and Texture Lungs: Clear to auscultation, Normal air movement, No rhonchi, No wheeze Cardiovascular: Regular rate, Regular Rhythm, Normal S1, Normal S2 Abdomen: Bowel Sounds Present, Soft, Non Tender, Non-Distended Extremities: - - Right BKA. Left leg edema. Skin: - - Decreased erythema of the left lower extremity. Decreased warmth as well. No tenderness to palpation. Laboratory Results 09/05/17 11:05: POC Glucose 447 H 09/05/17 16:41: POC Glucose 398 H 09/05/17 21:55: POC Glucose 376 H 09/06/17 05:20: Sodium 139, Potassium 3.5, Chloride 91 L, Carbon Dioxide 42.0 H, BUN 20 H, Creatinine 1.41 H, Estim Creat Clear Calc 55.25, Est GFR (MDRD) Af Amer 66, Est GFR (MDRD) Non-Af 55 L, BUN/Creatinine Ratio 14.2, Glucose 137 H, Calcium 9.0, Phosphorus 3.4, Magnesium 1.6, Albumin 2.7 L 09/06/17 05:20: WBC 12.3 H, RBC 3.97 L, Hgb 9.9 L, Hct 33.4 L, MCV 84.1, MCH 24.9 L, MCHC 29.6 L, RDW 17.5 H, RDW Differential 48.6 H, Plt Count 241, MPV 9.6, Immature Gran % (Auto) 0.300, Neut % (Auto) 69.1, Lymph % (Auto) 15.6 L, [place] % (Auto) 11.1 H, Eos % (Auto) 3.6, Baso % (Auto) 0.3, Absolute Neuts (auto) 8.5 H, Absolute Lymphs (auto) 1.91, Total Counted Not Reportable 09/06/17 05:20: PT 18.2 H, INR 1.6 09/06/17 06:27: POC Glucose 126 H 09/06/17 09:10: POC Glucose 231 H Current Medications Hydrocodone Bitart/Acetaminophen ([place] 5mg-325mg) 1 tablet PO BID PRN PRN PRN Reason: BREAKTHROUGH PAIN (>4/10) Last Admin: 09/06/17 09:04 Dose: 1 tablet Al Hydroxide/Mg Hydroxide (Mylanta Ii) 30 ml PO Q4H PRN PRN PRN Reason: gi distress Albuterol/Ipratropium (Duoneb) 3 ml INHALATION Q4H PRN PRN PRN Reason: SOB &/OR WHEEZING Albuterol/Ipratropium (Duoneb) 3 ml INHALATION Q4HWA.RT [facility] Last Admin: 09/06/17 06:50 Dose: 3 ml Atorvastatin Calcium (Lipitor) 20 mg PO QHS [facility] Last Admin: 09/05/17 22:18 Dose: 20 mg Bisacodyl (Dulcolax) 10 mg RECTAL PRN PRN PRN Reason: Constipation Buspirone HCl (Buspar) 5 mg PO TID [facility] Last Admin: 09/06/17 06:31 Dose: 5 mg Cholecalciferol (Vitamin D) 2,000 unit PO DAILY [facility] Last Admin: 09/06/17 08:59 Dose: 2,000 unit Dextrose (D50w Syringe) 0 gm IV X1 PRN; Protocol PRN Reason: Hypoglycemia Duloxetine HCl (Cymbalta) 120 mg PO DAILY [facility] Last Admin: 09/06/17 08:57 Dose: 120 mg Furosemide (Lasix) 40 mg PO BID@1000,1800 [facility] Last Admin: 09/06/17 09:02 Dose: 40 mg Glucagon () 1 mg IM .X1 PRN PRN Reason: Hypoglycemia Guaifenesin (Robitussin) 10 ml PO Q4H PRN PRN PRN Reason: COUGH Heparin Sodium (Porcine) (Heparin Na) 5,000 unit SC BID [facility] Last Admin: 09/06/17 09:02 Dose: 5,000 units Hydroxyzine Pamoate (Vistaril) 25 mg PO Q6H PRN PRN PRN Reason: ANXIETY Cefazolin Sodium 2 gm/ Sodium (Chloride) 120 mls @ 240 mls/hr IV Q8 [facility] Last Admin: 09/06/17 06:30 Dose: 240 mls/hr Clindamycin Phosphate (Cleocin) 600 mg in 50 mls @ 100 mls/hr IV Q8 [facility] Last Admin: 09/06/17 06:30 Dose: 100 mls/hr Insulin Aspart (Novolog Flexpen (Bkc)) 0 units SC ACHS [facility] PRN Reason: Protocol Last Admin: 09/06/17 08:54 Dose: Not Given Insulin Aspart (Novolog Flexpen (Bkc)) 10 units SC TIDCM [facility] Last Admin: 09/06/17 08:56 Dose: 10 u Insulin Detemir (Levemir (Bkc)) 55 units SC BID [facility] Last Admin: 09/06/17 08:58 Dose: 55 units Magnesium Hydroxide (Milk Of Magnesia) 30 ml PO DAILY PRN PRN Reason: Constipation Last Admin: 09/03/17 08:19 Dose: 30 ml Melatonin (Melatonin) 3 mg PO QHS [facility] Last Admin: 09/05/17 22:17 Dose: 3 mg Metoprolol Tartrate (Lopressor (Beta Ronald)) 50 mg PO BID [facility] Mirtazapine (Remeron) 15 mg PO QHS [facility] Last Admin: 09/05/17 22:18 Dose: 15 mg Morphine Sulfate (Ms Contin) 30 mg PO Q8 [facility] Last Admin: 09/06/17 06:30 Dose: 30 mg [facility]ivitamins ([facility]) [facility] Last Admin: 09/06/17 08:55 Dose: 1 tablet Nitroglycerin (Nitrostat) 0.4 mg SUBLINGUAL Q5M PRN PRN Reason: Chest Pain Ondansetron HCl (Zofran) 4 mg IV Q6H PRN PRN PRN Reason: NAUSEA/VOMITING Pantoprazole Sodium (Protonix) 20 mg PO DAILY [facility] Last Admin: 09/06/17 08:59 Dose: 20 mg Potassium Chloride (K-Dur) [facility]q [facility] Last Admin: 09/06/17 08:55 Dose: 40 meq Pregabalin (Lyrica) 50 mg PO BID [facility] Last Admin: 09/06/17 09:02 Dose: 50 mg Senna (Senokot) 1 tablet PO BID [facility] Last Admin: 09/06/17 08:59 Dose: 1 tablet Sodium Biphosphate/Sodium Phosphate (Fleet Enema) 1 bottle RECTAL DAILY PRN PRN PRN Reason: Constipation Sodium Chloride () 5 - 30 ml IV UD PRN PRN Reason: SALINE FLUSH Last Admin: 09/05/17 09:29 Dose: 10 ml Tamsulosin HCl (Flomax) 0.4 mg PO QHS [facility] Last Admin: 09/05/17 22:20 Dose: 0.4 mg Thiamine HCl (Vitamin B1) [facility] Last Admin: 09/06/17 08:57 Dose: 100 mg Assessment/Plan Active and Suspected Problems (Last Updated 09/05/17 @ 13:35 by Wesley Senior DO) Cellulitis of left lower extremity without foot (Acute) Acute on chronic diastolic (congestive) heart failure (Acute) 1. Left lower extremity cellulitis improved today with cefazolin no evidence of necrotizing fasciitis change to Keflex for 7 days 2. Acute heart failure with preserved ejection fraction EF is a 55% from echocardiogram from August 08, 2017. Continue with IV Lasix, which change at over to twice daily from once daily as patient is still very volume overloaded. Will not start any beta-ronald in light of the acute heart failure exacerbation Hold off on CHAPO inhibitors and angiotensin receptor blockers in light of acute kidney injury, presumed Weight is down overall this patient still with diffuse lower extremity edema. Patient's weight is down considerably from 147.5 kg to now 128.9 kg. Patient had a weight of 124.3 kg back on July 17. Going to transition the patient back to oral Lasix. 3. Acute kidney injury improving Creatinine is 1.41. Patient's last creatinine was from February 2016 were is 1.23 at that time. May be related with urinary retention. Renal ultrasound was limited but show no obvious hydronephrosis. dc blount, check PVR. 4. Paroxysmal atrial fibrillation INR subtherapeutic. Continue to monitor. 5. DT prophylaxis: Patient is anticoagulated. 6. Hypokalemia improved Currently being replaced replace mag 7. Disposition DC to ECF.
--- NOTE | 2017-09-06 10:41 | PN_ITS ---
Patient Problems: Active and Suspected Problems (Last Updated 09/05/17 @ 13:35 by Wesley Senior DO ) Cellulitis of left lower extremity without foot (Acute) Acute on chronic diastolic (congestive) heart failure (Acute) Subjective: Doing well. Leg is feeling better with decreased redness. Patient feels that he needs a couple more days here to get stronger. Vitals/I&O's: Vital Signs Temp Pulse Resp BP Pulse Ox 37.0 C 123 H 18 147/62 H 95 09/06/17 03:00 09/06/17 10:18 09/06/17 07:03 09/06/17 03:00 09/06/17 07:03 Oxygen Flow Rate 3 Oxygen Delivery Method Nasal Cannula Weight: 128.9 kg Body Mass Index (BMI) 48.5 Finger Stick Blood Glucose 72 Intake and Output for Last 24 Hours 09/04/17 09/05/17 09/06/17 23:59 23:59 23:59 Intake Total 1353 / 1353 3459 / 3459 369.9 / 369.9 Output Total 8200 / 8200 3875 / 3875 625 / 625 Balance -6847 / -6847 -416 / -416 -255.1 / -255.1 General: Alert, Cooperative, No apparent distress, - - Respiratory distress. No conversational dyspnea. HEENT: Atraumatic, Normocephalic Neck: No Nodes, Thyroid Normal Size and Texture Lungs: Clear to auscultation, Normal air movement, No rhonchi, No wheeze Cardiovascular: Regular rate, Regular Rhythm, Normal S1, Normal S2 Abdomen: Bowel Sounds Present, Soft, Non Tender, Non-Distended Extremities: - - Right BKA. Left leg edema. Skin: - - Decreased erythema of the left lower extremity. Decreased warmth as well. No tenderness to palpation. Laboratory Results 09/05/17 11:05: POC Glucose 447 H 09/05/17 16:41: POC Glucose 398 H 09/05/17 21:55: POC Glucose 376 H 09/06/17 05:20: Sodium 139, Potassium 3.5, Chloride 91 L, Carbon Dioxide 42.0 H , BUN 20 H, Creatinine 1.41 H, Estim Creat Clear Calc 55.25, Est GFR (MDRD) Af Amer 66, Est GFR (MDRD) Non-Af 55 L, BUN/Creatinine Ratio 14.2, Glucose 137 H, Calcium 9.0, Phosphorus 3.4, Magnesium 1.6, Albumin 2.7 L 09/06/17 05:20: WBC 12.3 H, RBC 3.97 L, Hgb 9.9 L, Hct 33.4 L, MCV 84.1, MCH 24.9 L, MCHC 29.6 L, RDW 17.5 H, RDW Differential 48.6 H, Plt Count 241, MPV 9.6 , Immature Gran % (Auto) 0.300, Neut % (Auto) 69.1, Lymph % (Auto) 15.6 L, [place] % (Auto) 11.1 H, Eos % (Auto) 3.6, Baso % (Auto) 0.3, Absolute Neuts (auto) 8.5 H, Absolute Lymphs (auto) 1.91, Total Counted Not Reportable 09/06/17 05:20: PT 18.2 H, INR 1.6 09/06/17 06:27: POC Glucose 126 H 09/06/17 09:10: POC Glucose 231 H Current Medications Hydrocodone Bitart/Acetaminophen ([place] 5mg-325mg) 1 tablet PO BID PRN PRN PRN Reason: BREAKTHROUGH PAIN (>4/10) Last Admin: 09/06/17 09:04 Dose: 1 tablet Al Hydroxide/Mg Hydroxide (Mylanta Ii) 30 ml PO Q4H PRN PRN PRN Reason: gi distress Albuterol/Ipratropium (Duoneb) 3 ml INHALATION Q4H PRN PRN PRN Reason: SOB &/OR WHEEZING Albuterol/Ipratropium (Duoneb) 3 ml INHALATION Q4HWA.RT [facility] Last Admin: 09/06/17 06:50 Dose: 3 ml Atorvastatin Calcium (Lipitor) 20 mg PO QHS [facility] Last Admin: 09/05/17 22:18 Dose: 20 mg Bisacodyl (Dulcolax) 10 mg RECTAL PRN PRN PRN Reason: Constipation Buspirone HCl (Buspar) 5 mg PO TID [facility] Last Admin: 09/06/17 06:31 Dose: 5 mg Cholecalciferol (Vitamin D) 2,000 unit PO DAILY [facility] Last Admin: 09/06/17 08:59 Dose: 2,000 unit Dextrose (D50w Syringe) 0 gm IV X1 PRN; Protocol PRN Reason: Hypoglycemia Duloxetine HCl (Cymbalta) 120 mg PO DAILY [facility] Last Admin: 09/06/17 08:57 Dose: 120 mg Furosemide (Lasix) 40 mg PO BID@1000,1800 [facility] Last Admin: 09/06/17 09:02 Dose: 40 mg Glucagon () 1 mg IM .X1 PRN PRN Reason: Hypoglycemia Guaifenesin (Robitussin) 10 ml PO Q4H PRN PRN PRN Reason: COUGH Heparin Sodium (Porcine) (Heparin Na) 5,000 unit SC BID [facility] Last Admin: 09/06/17 09:02 Dose: 5,000 units Hydroxyzine Pamoate (Vistaril) 25 mg PO Q6H PRN PRN PRN Reason: ANXIETY Cefazolin Sodium 2 gm/ Sodium (Chloride) 120 mls @ 240 mls/hr IV Q8 [facility] Last Admin: 09/06/17 06:30 Dose: 240 mls/hr Clindamycin Phosphate (Cleocin) 600 mg in 50 mls @ 100 mls/hr IV Q8 [facility] Last Admin: 09/06/17 06:30 Dose: 100 mls/hr Insulin Aspart (Novolog Flexpen (Bkc)) 0 units SC ACHS [facility] PRN Reason: Protocol Last Admin: 09/06/17 08:54 Dose: Not Given Insulin Aspart (Novolog Flexpen (Bkc)) 10 units SC TIDCM [facility] Last Admin: 09/06/17 08:56 Dose: 10 u Insulin Detemir (Levemir (Bkc)) 55 units SC BID [facility] Last Admin: 09/06/17 08:58 Dose: 55 units Magnesium Hydroxide (Milk Of Magnesia) 30 ml PO DAILY PRN PRN Reason: Constipation Last Admin: 09/03/17 08:19 Dose: 30 ml Melatonin (Melatonin) 3 mg PO QHS [facility] Last Admin: 09/05/17 22:17 Dose: 3 mg Metoprolol Tartrate (Lopressor (Beta Ronald)) 50 mg PO BID [facility] Mirtazapine (Remeron) 15 mg PO QHS [facility] Last Admin: 09/05/17 22:18 Dose: 15 mg Morphine Sulfate (Ms Contin) 30 mg PO Q8 [facility] Last Admin: 09/06/17 06:30 Dose: 30 mg Multivitamins ([facility]amin) [facility] Last Admin: 09/06/17 08:55 Dose: 1 tablet Nitroglycerin (Nitrostat) 0.4 mg SUBLINGUAL Q5M PRN PRN Reason: Chest Pain Ondansetron HCl (Zofran) 4 mg IV Q6H PRN PRN PRN Reason: NAUSEA/VOMITING Pantoprazole Sodium (Protonix) 20 mg PO DAILY [facility] Last Admin: 09/06/17 08:59 Dose: 20 mg Potassium Chloride (K-Dur) [facility] Last Admin: 09/06/17 08:55 Dose: 40 meq Pregabalin (Lyrica) 50 mg PO BID [facility] Last Admin: 09/06/17 09:02 Dose: 50 mg Senna (Senokot) 1 tablet PO BID [facility] Last Admin: 09/06/17 08:59 Dose: 1 tablet Sodium Biphosphate/Sodium Phosphate (Fleet Enema) 1 bottle RECTAL DAILY PRN PRN PRN Reason: Constipation Sodium Chloride () 5 - 30 ml IV UD PRN PRN Reason: SALINE FLUSH Last Admin: 09/05/17 09:29 Dose: 10 ml Tamsulosin HCl (Flomax) 0.4 mg PO QHS [facility] Last Admin: 09/05/17 22:20 Dose: 0.4 mg Thiamine HCl (Vitamin B1) [facility] Last Admin: 09/06/17 08:57 Dose: 100 mg Assessment/Plan Active and Suspected Problems (Last Updated 09/05/17 @ 13:35 by Wesley Senior DO ) Cellulitis of left lower extremity without foot (Acute) Acute on chronic diastolic (congestive) heart failure (Acute) 1. Left lower extremity cellulitis * improved today with cefazolin * no evidence of necrotizing fasciitis * change to Keflex for 7 days 2. Acute heart failure with preserved ejection fraction * EF is a 55% from echocardiogram from August 08, 2017. * Continue with IV Lasix, which change at over to twice daily from once daily as patient is still very volume overloaded. * Will not start any beta-ronald in light of the acute heart failure exacerbation * Hold off on CHAPO inhibitors and angiotensin receptor blockers in light of acute kidney injury, presumed * Weight is down overall this patient still with diffuse lower extremity edema. * Patient's weight is down considerably from 147.5 kg to now 128.9 kg. Patient had a weight of 124.3 kg back on July 17. * Going to transition the patient back to oral Lasix. 3. Acute kidney injury * improving * Creatinine is 1.41. Patient's last creatinine was from February 2016 were is 1.23 at that time. * May be related with urinary retention. * Renal ultrasound was limited but show no obvious hydronephrosis. * dc blount, check PVR. 4. Paroxysmal atrial fibrillation * INR subtherapeutic. Continue to monitor. 5. DT prophylaxis: Patient is anticoagulated. 6. Hypokalemia * improved * Currently being replaced * replace mag 7. Disposition * DC to ECF.
--- NOTE | 2017-09-06 10:48 | PCM.TXEXTCAR ---
- Diet 09/04/17 20:06 Diet: Cardiac: Carb-Controlled Is pt able to select menu?: No 1800 kcal/day. 1500 cc fluid/day - Routine Orders/Code Status Routine Lab Work: CBC, BMP, INR Code Status: Full Code - Wound(s) Left Foot Wound Type: 2 small scabbed areas Left fleming Wound Type: Abrasion - Therapies Physical Therapy: Eval and Treat Occupational Therapy: Eval and Treat - Allergies/Procedures Done in Hospital Allergies/Adverse Reactions: Allergies ciprofloxacin [From Cipro] Allergy (Verified 09/01/17 15:48) itching/burning when given IV ciprofloxacin HCl [From Cipro] Allergy (Verified 09/01/17 15:48) Unknown ibuprofen [From Motrin] Allergy (Verified 09/01/17 15:48) elevated white count? tramadol Allergy (Verified 09/01/17 15:48) makes me shake/twitch venom-honey bee [bee venom (honey bee)] Allergy (Verified 09/01/17 15:48) Shortness of breath - Type of Care/Length of Stay Estimated LOS: More Than 30 Days Type of Care Needed: Intermediate Rehab Potential: Fair Prognosis: Good - Additional Orders/Day of Discharge Day of Discharge: 09/06/17 - Dietary and Speech Recommendations Dietitian Recommendations/Changes: Suggest diet change to 2000 calorie, carbohydrate-controlled, cardiac, low sodium with fluid restriction as needed. - Follow Up Care Primary Care Physician: Sharan Rae MD [Primary Care Provider] - Within 2 Weeks Please Follow Up With: Neema Briseno DO - chronic kidney disease When: 2-4 weeks Please Follow Up With: Jared Duarte DPM - foot wounds When: 1-2 weeks
--- NOTE | 2017-09-06 10:54 | PCM.DC.SUM ---
Discharge Date and Diagnosis - Problem List Patient Problems: Active and Suspected Problems (Last Updated 09/06/17 @ 10:38 by Wesley Senior DO) JAILENE (acute kidney injury) (Acute) Cellulitis of left lower extremity without foot (Acute) Acute on chronic diastolic (congestive) heart failure (Acute) Date of Admission: 09/03/17 Date of Discharge: 09/06/17 - Primary Discharge Diagnosis Active and Suspected Problems (Last Updated 09/06/17 @ 10:38 by Wesley Senior DO) Cellulitis of left lower extremity without foot (Acute) Acute on chronic diastolic (congestive) heart failure (Acute) - Secondary Discharge Diagnosis Chronic Problems (Last Updated 09/06/17 @ 10:38 by Wesley Senior DO) Diabetes mellitus, type 2 (Chronic) Hypertension (Chronic) Hyperlipidemia (Chronic) Chronic obstructive lung disease (Chronic) Chronic diastolic CHF (congestive heart failure) (Chronic) ischemic cardiomyopathy Obstructive sleep apnea (Chronic) Back pain (Chronic) CAD (coronary artery disease) (Chronic) Status post the first OM the LCx appears to be occluded First OM with proximal 50-75% appearing stenosis followed by minimal luminal irregularities - recommended medical management Depression (Chronic) Nicotine dependence (Chronic) Microcytic anemia (Chronic) Chronic respiratory failure with hypoxia (Chronic) Morbid obesity with BMI of 40.0-44.9, adult (Chronic) PAF (paroxysmal atrial fibrillation) (Chronic) Hospital Course and Treatment Imaging Results: Clinical Impression(s) from Imaging Studies Chest X-Ray 09/01/17 15:40 IMPRESSION: Congestive heart failure. Electronically Signed: Leticia Soto MD at 16:04 EST Tel , Service support , Renal Ultrasound 09/01/17 19:17 IMPRESSION: Extremely limited examination secondary to body habitus demonstrating no gross hydronephrosis. Electronically Signed: Leticia Soto MD at 14:01 EST Tel , Service support , Lower Extremity CT 09/04/17 09:14 IMPRESSION: Diffuse edema in the subcutis adipose space of the left lower extremity and fluid along the myocutaneous fascial planes without demonstrated gas in the soft tissues or drainable fluid collection. Electronically Signed: Jorge Heath MD at 10:36 EST Tel , Service support , KUB X-Ray 09/04/17 14:40 IMPRESSION: No obstruction. Abundant stool. Electronically Signed: Norman Russell MD at 18:22 EST , Service support , Consultations 09/02/17 02:35 Consult: Onc/Wound/sales planning coordinator Routine Comment: Neema Cotton Operations: None Procedures: None Summary of Care Provided: The patient is a 56 year old M presents with with heart failure and acute kidney injury. Patient was started on diuresis and seen by nephrology. He was 2.45 on admission and is down to 1.41. May been related with some urinary retention so catheter was placed. We will remove the catheter to see if the patient would need to have left outer replaced. Patient did also developed cellulitis of his left lower extremity. It actually got worse despite antibiotics one point so there is concern for necrotizing fasciitis. CAT scan and ultrasound were unremarkable other than swelling. Patient was seen in consultation by orthopedics who did not feel the patient had necrotizing fasciitis. Patient was also seen by infectious disease to de-escalate the antibiotics from Zosyn and vancomycin to cefazolin and clindamycin. Patient's leg is looking better and will be discharged with a week's course of Keflex and clindamycin. 1. Left lower extremity cellulitis improved today with cefazolin no evidence of necrotizing fasciitis change to Keflex for 7 days 2. Acute heart failure with preserved ejection fraction EF is a 55% from echocardiogram from August 08, 2017. Continue with IV Lasix, which change at over to twice daily from once daily as patient is still very volume overloaded. Will not start any beta-carlos eduardo in light of the acute heart failure exacerbation Hold off on CHAPO inhibitors and angiotensin receptor blockers in light of acute kidney injury, presumed Weight is down overall this patient still with diffuse lower extremity edema. Patient's weight is down considerably from 147.5 kg to now 128.9 kg. Patient had a weight of 124.3 kg back on July 17. Going to transition the patient back to oral Lasix. 3. Acute kidney injury improving Creatinine is 1.41. Patient's last creatinine was from February 2016 were is 1.23 at that time. May be related with urinary retention. Renal ultrasound was limited but show no obvious hydronephrosis. dc blount, check PVR. 4. Paroxysmal atrial fibrillation INR subtherapeutic. Continue to monitor. 5. DT prophylaxis: Patient is anticoagulated. 6. Hypokalemia improved Currently being replaced replace mag[] Discharge Diet: 1800 Calorie Control Diet, 6 Cup Fluid Restriction, 2000 mg Sodium Diet Discharge Activity: Return to Normal Activity Call your doctor if you observe: Fever of 101 or Higher, Shortness of breath Home Medications: Medications to take at Discharge Cholecalciferol (VIT D3) [Vitamin D3] 2,000 unit PO DAILY 12/23/15 Duloxetine HCl 120 mg PO DAILY 12/23/15 Melatonin 3 mg PO QHS 12/23/15 Multivitamins,Therapeutic [Multivitamin] 1 tab PO DAILY 12/23/15 Potassium Chloride [K-Liliana] 15 ml PO BID 12/23/15 Sennosides [Evac-U-Gen] 2 tab PO BID 12/23/15 Thiamine HCl [B-1] 100 mg PO DAILY 12/23/15 Warfarin [Coumadin] 5 mg PO QHS 12/23/15 Nitroglycerin [Nitrostat] 0.4 mg SUBLINGUAL Q5M PRN #30 tab 01/18/16 Acetaminophen [Tylenol Tablet] 650 mg PO Q6H PRN PRN #10 tab 02/16/16 Acetaminophen 650 mg RC Q6H PRN PRN 09/01/17 Atorvastatin Calcium 20 mg PO QHS 09/01/17 Bisacodyl [Laxative Suppository] 10 mg RC PRN PRN 09/01/17 BusPIRone [Buspar] 5 mg PO TID 09/01/17 Dextrose [Glucose Gel] 38 gm PO PRN PRN 09/01/17 Glucagon,Human Recombinant [Glucagon Emergency Kit] 1 mg IJ PRN PRN 09/01/17 Guaifenesin [Robitussin] 10 ml PO Q4H PRN PRN 09/01/17 Hydroxyzine HCl 25 mg PO Q6H PRN PRN 09/01/17 Insulin Detemir [Levemir FlexPen] 55 units SC BID 09/01/17 Insulin Lispro [Humalog] 10 unit SC TIDCM 09/01/17 Ipratropium/Albuterol Sulfate [Duoneb] 3 ml INHALATION DAILY 09/01/17 Ipratropium/Albuterol Sulfate [Duoneb] 3 ml INHALATION Q4H PRN PRN 09/01/17 Mag Hydrox/Al Hydrox/Simeth [Antacid Suspension] 30 ml PO Q4H PRN PRN 09/01/17 Magnesium Hydroxide [Milk Of Magnesia] 30 ml PO DAILY PRN PRN 09/01/17 Mirtazapine [Remeron] 15 mg PO QHS 09/01/17 MorphINE [Ms Contin] 30 mg PO Q8H 09/01/17 Na Phos,M-B/Na Phos,Di-Ba [Fleet Enema] 1 bottle RECTAL DAILY PRN PRN 09/01/17 Omeprazole [Prilosec] 20 mg PO DAILY 09/01/17 Tamsulosin HCl [Flomax] 0.4 mg PO QHS 09/01/17 Warfarin [Coumadin] 2 mg PO SUTUTHSA 09/01/17 Cephalexin [Keflex] 500 mg PO TID #21 capsule 09/06/17 Clindamycin [Cleocin] 300 mg PO TID #21 capsule 09/06/17 Furosemide [Lasix] 40 mg PO BID@1000,1800 tablet 09/06/17 Hydrocodone Bitart/Apap 5-325 [[place] 5/325] 1 tab PO BID PRN PRN #6 tab 09/06/17 Magnesium Oxide [Mag-Ox 400] 400 mg PO BID #0 09/06/17 Metoprolol Tartrate [Lopressor (beta carlos eduardo)] 50 mg PO BID tablet 09/06/17 Potassium Chloride [K-Dur] 20 meq PO DAILY tablet 09/06/17 Pregabalin [Lyrica] 50 mg PO BID #6 cap 09/06/17 Following Prescrptions Were Given to Patient: Hydrocodone Bitart/Apap 5-325 [[place] 5/325] 1 tab PO BID PRN PRN #6 tab PRN Reason: Breakthrough Pain (>4/10) Pregabalin [Lyrica] 50 mg PO BID #6 cap Cephalexin [Keflex] 500 mg PO TID #21 capsule Clindamycin [Cleocin] 300 mg PO TID #21 capsule Primary Care Physician: Sharan Rae MD [Primary Care Provider] - Within 2 Weeks Please Follow Up With: Neema Briseno DO - chronic kidney disease When: 2-4 weeks Please Follow Up With: Jared Duarte DPM - foot wounds When: 1-2 weeks Disposition: [facility] facility Minutes spent on discharge:: 35 Patient Condition:: Fair Meaningful Use Info Meaningful Use Diagnoses (Choose all that apply): CHF - CHF CHAPO/ARB ordered at discharge?: No Reason CHAPO/ARB not ordered?: Worsening renal disease Documented LVEF (%): 55 Code Visit Inpatient E&M: 91510 Disch Hosp
--- NOTE | 2017-09-06 10:59 | DS.PCM_ITS ---
Discharge Date and Diagnosis - Problem List Patient Problems: Active and Suspected Problems (Last Updated 09/06/17 @ 10:38 by Wesley Senior DO ) JAILENE (acute kidney injury) (Acute) Cellulitis of left lower extremity without foot (Acute) Acute on chronic diastolic (congestive) heart failure (Acute) Date of Admission: 09/03/17 Date of Discharge: 09/06/17 - Primary Discharge Diagnosis Active and Suspected Problems (Last Updated 09/06/17 @ 10:38 by Wesley Senior DO ) Cellulitis of left lower extremity without foot (Acute) Acute on chronic diastolic (congestive) heart failure (Acute) - Secondary Discharge Diagnosis Chronic Problems (Last Updated 09/06/17 @ 10:38 by Wesley Senior DO) Diabetes mellitus, type 2 (Chronic) Hypertension (Chronic) Hyperlipidemia (Chronic) Chronic obstructive lung disease (Chronic) Chronic diastolic CHF (congestive heart failure) (Chronic) ischemic cardiomyopathy Obstructive sleep apnea (Chronic) Back pain (Chronic) CAD (coronary artery disease) (Chronic) Status post the first OM the LCx appears to be occluded First OM with proximal 50-75% appearing stenosis followed by minimal luminal irregularities - recommended medical management Depression (Chronic) Nicotine dependence (Chronic) Microcytic anemia (Chronic) Chronic respiratory failure with hypoxia (Chronic) Morbid obesity with BMI of 40.0-44.9, adult (Chronic) PAF (paroxysmal atrial fibrillation) (Chronic) Hospital Course and Treatment Imaging Results: Clinical Impression(s) from Imaging Studies Chest X-Ray 09/01/17 15:40 IMPRESSION: Congestive heart failure. Electronically Signed: Leticia Soto MD at 16:04 EST Tel , Service support , Renal Ultrasound 09/01/17 19:17 IMPRESSION: Extremely limited examination secondary to body habitus demonstrating no gross hydronephrosis. Electronically Signed: Leticia Soto MD at 14:01 EST Tel , Service support , Lower Extremity CT 09/04/17 09:14 IMPRESSION: Diffuse edema in the subcutis adipose space of the left lower extremity and fluid along the myocutaneous fascial planes without demonstrated gas in the soft tissues or drainable fluid collection. Electronically Signed: Jorge Heath MD at 10:36 EST Tel , Service support , KUB X-Ray 09/04/17 14:40 IMPRESSION: No obstruction. Abundant stool. Electronically Signed: Norman Russell MD at 18:22 EST , Service support , Consultations 09/02/17 02:35 Consult: Onc/Wound/avionics system engineer Routine Comment: Neema Cotton Operations: None Procedures: None Summary of Care Provided: The patient is a 56 year old M presents with with heart failure and acute kidney injury. Patient was started on diuresis and seen by nephrology. He was 2.45 on admission and is down to 1.41. May been related with some urinary retention so catheter was placed. We will remove the catheter to see if the patient would need to have left outer replaced. Patient did also developed cellulitis of his left lower extremity. It actually got worse despite antibiotics one point so there is concern for necrotizing fasciitis. CAT scan and ultrasound were unremarkable other than swelling. Patient was seen in consultation by orthopedics who did not feel the patient had necrotizing fasciitis. Patient was also seen by infectious disease to de-escalate the antibiotics from Zosyn and vancomycin to cefazolin and clindamycin. Patient's leg is looking better and will be discharged with a week's course of Keflex and clindamycin. 1. Left lower extremity cellulitis * improved today with cefazolin * no evidence of necrotizing fasciitis * change to Keflex for 7 days 2. Acute heart failure with preserved ejection fraction * EF is a 55% from echocardiogram from August 08, 2017. * Continue with IV Lasix, which change at over to twice daily from once daily as patient is still very volume overloaded. * Will not start any beta-carlos eduardo in light of the acute heart failure exacerbation * Hold off on CHAPO inhibitors and angiotensin receptor blockers in light of acute kidney injury, presumed * Weight is down overall this patient still with diffuse lower extremity edema. * Patient's weight is down considerably from 147.5 kg to now 128.9 kg. Patient had a weight of 124.3 kg back on July 17. * Going to transition the patient back to oral Lasix. 3. Acute kidney injury * improving * Creatinine is 1.41. Patient's last creatinine was from February 2016 were is 1.23 at that time. * May be related with urinary retention. * Renal ultrasound was limited but show no obvious hydronephrosis. * dc blount, check PVR. 4. Paroxysmal atrial fibrillation * INR subtherapeutic. Continue to monitor. 5. DT prophylaxis: Patient is anticoagulated. 6. Hypokalemia * improved * Currently being replaced * replace mag[] Discharge Diet: 1800 Calorie Control Diet, 6 Cup Fluid Restriction, 2000 mg Sodium Diet Discharge Activity: Return to Normal Activity Call your doctor if you observe: Fever of 101 or Higher, Shortness of breath Home Medications: Medications to take at Discharge Cholecalciferol (VIT D3) [Vitamin D3] 2,000 unit PO DAILY 12/23/15 Duloxetine HCl 120 mg PO DAILY 12/23/15 Melatonin 3 mg PO QHS 12/23/15 Multivitamins,Therapeutic [Multivitamin] 1 tab PO DAILY 12/23/15 Potassium Chloride [K-Liliana] 15 ml PO BID 12/23/15 Sennosides [Evac-U-Gen] 2 tab PO BID 12/23/15 Thiamine HCl [B-1] 100 mg PO DAILY 12/23/15 Warfarin [Coumadin] 5 mg PO QHS 12/23/15 Nitroglycerin [Nitrostat] 0.4 mg SUBLINGUAL Q5M PRN #30 tab 01/18/16 Acetaminophen [Tylenol Tablet] 650 mg PO Q6H PRN PRN #10 tab 02/16/16 Acetaminophen 650 mg RC Q6H PRN PRN 09/01/17 Atorvastatin Calcium 20 mg PO QHS 09/01/17 Bisacodyl [Laxative Suppository] 10 mg RC PRN PRN 09/01/17 BusPIRone [Buspar] 5 mg PO TID 09/01/17 Dextrose [Glucose Gel] 38 gm PO PRN PRN 09/01/17 Glucagon,Human Recombinant [Glucagon Emergency Kit] 1 mg IJ PRN PRN 09/01/17 Guaifenesin [Robitussin] 10 ml PO Q4H PRN PRN 02/18/18 Hydroxyzine HCl 25 mg PO Q6H PRN PRN 09/01/17 Insulin Detemir [Levemir FlexPen] 55 units SC BID 09/01/17 Insulin Lispro [Humalog] 10 unit SC TIDCM 09/01/17 Ipratropium/Albuterol Sulfate [Duoneb] 3 ml INHALATION DAILY 09/01/17 Ipratropium/Albuterol Sulfate [Duoneb] 3 ml INHALATION Q4H PRN PRN 09/01/17 Mag Hydrox/Al Hydrox/Simeth [Antacid Suspension] 30 ml PO Q4H PRN PRN 09/01/17 Magnesium Hydroxide [Milk Of Magnesia] 30 ml PO DAILY PRN PRN 09/01/17 Mirtazapine [Remeron] 15 mg PO QHS 09/01/17 MorphINE [Ms Contin] 30 mg PO Q8H 09/01/17 Na Phos,M-B/Na Phos,Di-Ba [Fleet Enema] 1 bottle RECTAL DAILY PRN PRN 09/01/17 Omeprazole [Prilosec] 20 mg PO DAILY 09/01/17 Tamsulosin HCl [Flomax] 0.4 mg PO QHS 09/01/17 Warfarin [Coumadin] 2 mg PO SUTUTHSA 09/01/17 Cephalexin [Keflex] 500 mg PO TID #21 capsule 09/06/17 Clindamycin [Cleocin] 300 mg PO TID #21 capsule 09/06/17 Furosemide [Lasix] 40 mg PO BID@1000,1800 tablet 09/06/17 Hydrocodone Bitart/Apap 5-325 [[place] 5/325] 1 tab PO BID PRN PRN #6 tab Magnesium Oxide [Mag-Ox 400] 400 mg PO BID #0 09/06/17 Metoprolol Tartrate [Lopressor (beta carlos eduardo)] 50 mg PO BID tablet 09/06/17 Potassium Chloride [K-Dur] 20 meq PO DAILY tablet 09/06/17 Pregabalin [Lyrica] 50 mg PO BID #6 cap 09/06/17 Following Prescrptions Were Given to Patient: Hydrocodone Bitart/Apap 5-325 [[place] 5/325] 1 tab PO BID PRN PRN #6 tab PRN Reason: Breakthrough Pain (>4/10) Pregabalin [Lyrica] 50 mg PO BID #6 cap Cephalexin [Keflex] 500 mg PO TID #21 capsule Clindamycin [Cleocin] 300 mg PO TID #21 capsule Primary Care Physician: Sharan Rae MD [Primary Care Provider] - Within 2 Weeks Please Follow Up With: Neema Briseno DO - chronic kidney disease When: 2-4 weeks Please Follow Up With: Jared Duarte DPM - foot wounds When: 1-2 weeks Disposition: [facility] facility Minutes spent on discharge:: 35 Patient Condition:: Fair Meaningful Use Info Meaningful Use Diagnoses (Choose all that apply): CHF - CHF CHAPO/ARB ordered at discharge?: No Reason CHAPO/ARB not ordered?: Worsening renal disease Documented LVEF (%): 55 Code Visit Inpatient E&M: 15981 Disch Hosp
[2017-09-06 11:46] LABS: Bedside Glucose 177 mg/dL (70-110)
--- NOTE | 2017-09-06 12:37 | PCM.PN.ID ---
Patient Problems: Active and Suspected Problems (Last Updated 09/06/17 @ 10:38 by Wesley Senior DO) JAILENE (acute kidney injury) (Acute) Cellulitis of left lower extremity without foot (Acute) Acute on chronic diastolic (congestive) heart failure (Acute) Subjective: Feeling better, leg less sore, no fever, no n/v/d. - Physical Exam General: Alert, Cooperative, No apparent distress Lungs: Clear to auscultation, Normal air movement Cardiovascular: Regular rate, Regular Rhythm Abdomen: Soft, Non Tender, Non-Distended Extremities: Edema Skin: Rash Present - fading LLE erythema Vital Signs Temp Pulse Resp BP Pulse Ox 97.9 F 99 18 111/58 L 94 09/06/17 09:00 09/06/17 11:57 09/06/17 10:46 09/06/17 09:00 09/06/17 09:00 Oxygen Flow Rate 3 Oxygen Delivery Method Nasal Cannula Weight: 128.9 kg Body Mass Index (BMI) 48.5 Finger Stick Blood Glucose 72 Intake and Output for Last 24 Hours 09/04/17 09/05/17 09/06/17 23:59 23:59 23:59 Intake Total 1353 / 1353 3459 / 3459 819.9 / 819.9 Output Total 8200 / 8200 3875 / 3875 1125 / 1125 Balance -6847 / -6847 -416 / -416 -305.1 / -305.1 Laboratory Tests Past 24 Hrs 09/06/17 09/06/17 09/06/17 05:20 05:20 05:20 WBC 12.3 H RBC 3.97 L Hgb 9.9 L Hct 33.4 L MCV 84.1 MCH 24.9 L MCHC 29.6 L RDW 17.5 H RDW Differential 48.6 H Plt Count 241 MPV 9.6 Immature Gran % (Auto) 0.300 Neut % (Auto) 69.1 Lymph % (Auto) 15.6 L [place] % (Auto) 11.1 H Eos % (Auto) 3.6 Baso % (Auto) 0.3 Absolute Neuts (auto) 8.5 H Absolute Lymphs (auto) 1.91 Total Counted Not Reportable PT 18.2 H INR 1.6 Sodium 139 Potassium 3.5 Chloride 91 L Carbon Dioxide 42.0 H BUN 20 H Creatinine 1.41 H Estim Creat Clear Calc 55.25 Est GFR (MDRD) Af Amer 66 Est GFR (MDRD) Non-Af 55 L BUN/Creatinine Ratio 14.2 Glucose 137 H Calcium 9.0 Phosphorus 3.4 Magnesium 1.6 Albumin 2.7 L POC Glucose 09/06/17 09/06/17 09/06/17 11:35 09:10 06:27 POC Glucose 177 H 231 H 126 H 09/05/17 09/05/17 21:55 16:41 POC Glucose 376 H 398 H Route of nutrition/ use of supplements: [] Nutritional Intake: [] IV Site: [] Bright Catheter: [] - Assessment/Plan Antibiotics: [] Assessment/Plan: [] LLE cellulitis - improved on cefazolin and keflex, agree with plan for d/c on one more week of po abx. will follow
--- NOTE | 2017-09-06 13:34 | CASEMGMT ---
Patient is ready for d/c back to [facility]. RUSSEL called Kimberly and let her know. RUSSEL also faxed over orders. [facility] at 2p via cot. RUSSEL notified RN, traveling secretary, and patient. Plan: d/c back to [facility] under intermediate level [facility] care. [facility] Melanie CARLISLE
== END 2017-09-06 14:16 | disposition intermediate care facility (04) | DRG 291 ==
LOC: ED 17:53 → PCU 18:15
PROVIDERS: Internal Medicine Nephrology; Admitting Provider Internal Medicine; Emergency Provider Emergency Medicine; Family Provider Family Medicine; PCP Family Medicine
DX: I13.0 Hypertensive heart and chronic kidney disease with heart failure and stage 1 through stage 4 chronic kidney disease, or unspecified chronic kidney disease (principal); I50.33 Acute on chronic diastolic (congestive) heart failure; N17.9 Acute kidney failure, unspecified; J96.11 Chronic respiratory failure with hypoxia; E11.22 Type 2 diabetes mellitus with diabetic chronic kidney disease; E66.01 Morbid (severe) obesity due to excess calories; L03.116 Cellulitis of left lower limb; E87.1 Hypo-osmolality and hyponatremia; Z68.41 Body mass index [BMI] 40.0-44.9, adult; Z99.81 Dependence on supplemental oxygen; I48.0 Paroxysmal atrial fibrillation; E78.5 Hyperlipidemia, unspecified; G47.33 Obstructive sleep apnea (adult) (pediatric); E87.6 Hypokalemia; I25.10 Atherosclerotic heart disease of native coronary artery without angina pectoris; N18.2 Chronic kidney disease, stage 2 (mild); N40.1 Benign prostatic hyperplasia with lower urinary tract symptoms; R33.8 Other retention of urine; D50.9 Iron deficiency anemia, unspecified; F32.9 Major depressive disorder, single episode, unspecified; I25.5 Ischemic cardiomyopathy; J44.9 Chronic obstructive pulmonary disease, unspecified; Z89.511 Acquired absence of right leg below knee; Z79.4 Long term (current) use of insulin; Z79.01 Long term (current) use of anticoagulants; Z87.891 Personal history of nicotine dependence; Z98.61 Coronary angioplasty status
CPT/HCPCS: 36415; 71045; 73700; 74018; 76770; 80048; 80069; 81001; 82550; 82570; 82728; 82962; 83036; 83540; 83605; 83735; 83880; 84156; 84300; 84484; 85025; 85027; 85610; 85730; 87040; 93005; 93971; 94640; 97162; 97166; 97530; 97802; 99285; J1756; J7030; J7040; A4216; J1940; J3490